=== PATIENT | female | born 1975 | race Caucasian/White ===

== ENCOUNTER → 2018-12-13 | Outpatient (CLI) | payer MEDICAID, SELFPAY ==
[2018-12-13 08:53] VITALS: BP 125/78; PULSE 73; RESP 18; O2SAT 100; BMI 18.3
== END | disposition home or self-care (01) ==
LOC: RAD 08:41
PROVIDERS: Referring Provider Internal Medicine Hematology & Oncology; Visit Provider Internal Medicine Hematology & Oncology
DX: C50.919 Malignant neoplasm of unspecified site of unspecified female breast (principal)
CPT/HCPCS: 36569

== ENCOUNTER 2018-12-14 07:51 | Emergency (ER) | payer MEDICAID, SELFPAY ==
[2018-12-13 08:53] VITALS: BMI 18.3
[2018-12-14 07:52] VITALS: BP 123/73; PULSE 60; RESP 15; TEMP 36; O2SAT 98; BMI 18.6
--- NOTE | 2018-12-14 08:05 | RAD_ITS ---
STUDY: X-RAY CHEST REASON FOR EXAM: Female, 43 years old. Cough and shortness of breath TECHNIQUE: PA and lateral views of the chest. COMPARISON: None. FINDINGS: EKG leads overlie the chest. Right-sided PICC line tip in the distal SVC. The lungs are clear and expanded. There is no demonstrated pleural abnormality. Normal size heart. Normal mediastinum and miguel. Normal visualized pulmonary arteries. Normal visualized aortic arch and descending thoracic aorta. Normal visualized thoracic spine. Normal visualized ribs, clavicles, and shoulders. There is no demonstrated abnormality of the visualized soft tissue structures of the upper abdomen. RAD/Chest PA and Lateral IMPRESSION: No acute pulmonary process Electronically Signed: Dain Baker MD at 9:11 EDT , Service support ,
--- NOTE | 2018-12-14 08:06 | ED.DCSUM_ITS ---
History of Present Illness Chief Complaint: Nausea/Vomiting Detail of Chief Complaint: Onset 0300, chemo yesterday Informant: Patient, Family Onset: Today Context: Sudden Onset Timing: Continuous - Continuous nausea with initially vomiting and now dry heaves Quality: Pain Location: Upper abdomen Current Severity: Mild Maximum Severity: Moderate Worsened by: Vomiting Relieved by: Nothing Associated Symptoms: Chills, cough, shortness of breath Narrative: Patient is a 43-year-old woman who was diagnosed with stage I breast cancer October 2018 status post lumpectomy left breast. Her oncologist is Dr. Carreno. She reports allergy to first chemo treatment. She states her medications were changed. She does not recall what her medication was changed to. Received treatment yesterday. She states the nausea medicine is not helping. She states emesis initially was yellow-green in color. There was no blood or coffee grounds noted. She does report thirst, dry mouth and lightheadedness. She reports chills. She is a smoker. She was a smoker of half pack per day. She now smokes a couple cigarettes a day. She denies black or maroon stool. She denies change in color, consistency or caliber of her stool. She denies food intolerance. Prior similar symptoms: Yes Recent Illness/Hospitalization: Yes - Past Medical History (1) History of breast cancer in female Status: Acute Past Medical History - Allergies and Home Meds Allergies/Adverse Reactions: Allergies amoxicillin Allergy (Verified 12/14/18 07:51) Other Primary Care Physician: Care Physician,No Primary [Primary Care Provider] - Surgical History: - - Lumpectomy left Lives: Spouse/ Significant Other, With Family Smoking Status: Light Smoker (<10/day) Alcohol: None Drugs: None Review of Systems General: Reports: Chills. Denies: Fever, Malaise, Subjective, Sweats, Weight loss, - Eyes: Denies: Visual changes - bilaterally, Blurred Vision - bilaterally ENT: Reports: - - Dry mouth and thirst. Denies: Bilateral ear pain, Rhinorrhea, Sore throat Cardiovascular: Denies: Chest pain, Palpitations, Heart racing Respiratory: Reports: Dyspnea, Cough. Denies: Sputum, Orthopnea, Paroxysmal nocturnal dyspnea Gastrointestinal: Reports: Abdominal pain, Nausea, Vomiting. Denies: Diarrhea, Constipation, Melena, Hematochezia Genitourinary: Denies: Dysuria, Hematuria, Frequency Musculoskeletal: Denies: Myalgias, Arthralgias, Neck pain, Back pain, Extremity Pain Skin: Denies: Rash, Wounds Neurological: Reports: Weakness. Denies: Headache, Parasthesia, Numbness Hematologic: Denies: Easy bruising, Easy bleeding Allergy: Denies: Uticaria, Swelling of the mouth Physical Exam Vital Signs/Narrative: Vital Signs Temp Pulse Resp BP Pulse Ox 12/14/18 07:52 96.8 F L 60 15 123/73 H 98 Inital Vital Signs reviewed: Yes General: Well nourished, Well developed, Acute Distress Head: Normocephalic, Atraumatic Eyes: Perrl, EOMI. Negative for: Pale conjunctiva, Scleral icterus ENT: No rhinorrhea, Dry mucous membranes Neck: Supple, Nontender, No lymphadenopathy, No JVD Cardiovascular: Regular rate, Regular rhythm, No murmurs, Normal S1, Normal S2 Respiratory: No distress, CTA bilaterally, Chest nontender, Decreased Air Movement - Diminished breath sounds right side. This is significant compared to left. There is no hyperresonance on the right. Abdomen: Soft, Nontender, Nondistended, Normal bowel sounds, No masses Back: Nontender, Normal Inspection. Negative for: CVA tenderness Extremities: Nontender, No edema, Calf Tenderness Skin: Normal color, No rash, No Trauma. Negative for: Cyanosis, Diaphoresis, Jaundice Neurological: Alert, Oriented x3, Cranial nerves II-XII grossly intact, Normal Strength, Normal Sensation Psychological: Normal affect Diagnostic/Tx/Re-eval Chest X-Ray - ED: 2 View, Read by ED Physician, Normal, Heart, Mediastinum, Bony Structures, No Acute Disease, Chronic Changes, - - PICC line noted on right. Small pleural effusion noted on right with blunting of the costal phrenic angle. There is hyper aeration. Interpretation at 0850 12/14/18 08:05 Chest PA and Lateral [RAD] Stat Laboratory Results 12/14/18 12/14/18 08:22 08:22 WBC 10.6 RBC 3.88 L Hgb 11.6 L Hct 34.4 L MCV 88.7 MCH 29.9 MCHC 33.7 RDW Std Deviation 43.8 RDW Coeff of Fabienne 13.6 Plt Count 223 MPV 9.8 Immature Gran % (Auto) 0.300 Neut % (Auto) 81.0 H Lymph % (Auto) 9.7 L [place] % (Auto) 7.9 Eos % (Auto) 1.0 Baso % (Auto) 0.1 Absolute Neuts (auto) Not Reportable Absolute Nucleated RBC 0.00 Nucleated RBC % 0 Sodium 141 Potassium 3.7 Chloride 108 H Carbon Dioxide 25.0 Anion Gap 8 BUN 10 Creatinine 0.70 Estim Creat Clear Calc 94.48 Est GFR (MDRD) Af Amer 117 Est GFR (MDRD) Non-Af 97 BUN/Creatinine Ratio 14.4 Glucose 89 Calcium 9.3 Patient was informed of her results. She reports she feels much better. Her nausea has resolved. The pain has improved. She looks better. P.o. challenge was ordered. - Medical Decision Making Patient presents with nausea vomiting dry heaves after chemo. Suspect because of her nausea and vomiting. Based on the amount of vomiting and poor p.o. intake will obtain basic metabolic panel to assess electrolytes, renal function and anion gap. CBC was obtained since she has history of neutropenia after chemo. Chest x-ray was obtained because of cough, shortness of breath with decreased breath sounds noted on the right. Need to evaluate for pneumonia and pneumothorax. She will receive 1 L of normal saline wide open. Patient was reassessed at 0953. She is sitting up and smiling. She passed p.o. challenge. She was asking whether the chemo is making her skin red. Dr. Moran Her oncologist was paged and informed that she was here and that she had improved with treatment. Will ask if patient's skin redness is secondary to c hemo therapy. Based on patient's chemo medication her skin redness is secondary to photosensitivity. ED Disposition - Plan for ED Patient: Disposition: Home or Assisted Living Diagnosis: Chemotherapy induced nausea and vomiting, Moderate dehydration, Drug-induced photosensitivity Instructions: VOMITING (6y-Adult) Prescriptions: Ondansetron [Zofran Odt] 8 mg PO Q8H PRN PRN #20 tab PRN Reason: Nausea Prescription Printed Referrals: Care Physician,No Primary [Primary Care Provider] - Luciana Navas MD [STAFF PHYSICIAN] - Keep Jas appointment Additional Instructions: Recommend applying 50 sunscreen if you go out in the sun at all.
[2018-12-14] MEDS: Morphine 4 MG/ML Syringe IV (08:20)
[2018-12-14] MEDS: 0.9% Normal Saline 1,000 ML 1000 ML IV (08:20)
[2018-12-14] MEDS: Ondansetron 4 MG/2 ML Vial IV (08:20)
[2018-12-14 08:29] LABS: Basophil# 0.01 X10^3/uL; Basophil% 0.1 % (0-1); Eosinophil# 0.11 X10^3/uL; Hematocrit 34.4 % (37-47); Hemoglobin 11.6 g/dL (12.0-15.0); Lymphocyte # 1.03 X10^3/ul (4.0); Lymphocyte % 9.7 % (19-41); Mean Corp Hgb Conc 33.7 g/dL (32-36); Mean Corpuscular Hgb 29.9 pg (27.0-32.0); Mean Corpuscular Volume 88.7 fL (81-99); Mean Platelet Vol. 9.8 fl (6.2-12.0); Monocyte# 0.84 X10^3/uL; Monocyte% 7.9 % (0-10); NRBC Flagged by Analyzer 0 % (0-5); POSITIVE MORPHOLOGY YES; Platelet Count 223 K/mm3 (150-450); RBC Distribution Width CV 13.6 % (11.6-14.6); RBC Distribution Width SD 43.8 fl (35.1-43.9); Red Blood Count 3.88 M/mm3 (4.2-5.4); White Blood Count 10.6 K/mm3 (4.4-11.0)
[2018-12-14 08:41] LABS: Anion Gap 8 (5-15); BUN 10 mg/dL (7-18); BUN/Creat Ratio 14.4 RATIO (10-20); Calcium,Total 9.3 mg/dL (8.5-10.1); Chloride 108 mmol/L (98-107); EST Glomerular Filtration Rate 97 mL/min (>60); Est Glom Filt Rate - Afr Amer 117 mL/min (>60); Estimated Creatinine Clearance 94.48 ml/min; Glucose 89 mg/dL (74-106); Potassium 3.7 mmol/L (3.5-5.1); Sodium Level 141 mmol/L (136-145)
[2018-12-14 08:48] LABS: Differential Indicated SCAN CRITERIA MET
[2018-12-14 10:28] VITALS: BP 104/67; PULSE 56; RESP 16; O2SAT 98
[2018-12-14 10:29] VITALS: BP 104/67; PULSE 56; RESP 16; O2SAT 98
--- NOTE | 2018-12-14 10:33 | NURSING ---
PICC flushed with 10cc ns & recapped prior to discharge.
== END 2018-12-14 10:35 | disposition home or self-care (01) ==
PROVIDERS: Emergency Provider Emergency Medicine
DX: R11.2 Nausea with vomiting, unspecified (principal); E86.0 Dehydration; L56.8 Other specified acute skin changes due to ultraviolet radiation; C50.919 Malignant neoplasm of unspecified site of unspecified female breast; J90 Pleural effusion, not elsewhere classified; R06.00 Dyspnea, unspecified; R05 Cough; R10.9 Unspecified abdominal pain; Z86.2 Personal history of diseases of the blood and blood-forming organs and certain disorders involving the immune mechanism; Z79.899 Other long term (current) drug therapy; F17.210 Nicotine dependence, cigarettes, uncomplicated
CPT/HCPCS: 36592; 71046; 80048; 85025; 96361; 96374; 96375; 99283; J7030; A4216; J2405

== ENCOUNTER → 2024-12-13 | Outpatient (CLI) | payer MEDICAID, SELFPAY ==
--- NOTE | 2024-12-13 07:14 | MRI_ITS ---
PROCEDURE: SPINE CERVICAL (ROUTINE) 12/13/2024 REASON FOR EXAM: PAIN AND MYELOPATHY TECHNIQUE: SPINE CERVICAL (ROUTINE) Multiplanar and multisequence images were obtained without IV contrast administration. COMPARISON: C-spine radiographs 11/12/2024. FINDINGS: Vertebrae: Mild edema and height loss of the inferior endplate of C6. Cervical vertebral body heights are otherwise preserved. Bone marrow signal is unremarkable. Alignment: Normal. No spondylolisthesis. Spinal Cord: Cervical spinal cord is of normal size and signal intensities. Structures at the foramen magnum are unremarkable. C2-3: Unremarkable. C3-4: Unremarkable. The intervertebral disc is unremarkable. No significant central or neural foraminal stenosis. C4-5: Unremarkable. The intervertebral disc is unremarkable. No significant central or neural foraminal stenosis. C5-6: Posterior disc bulging, asymmetric to the right resulting in mild central canal narrowing, and mild left and severe right neural foraminal stenosis. C6-7: Unremarkable. C7-T1: Unremarkable MRI/Spine Cervical (Routine) IMPRESSION: Severe right and mild left neural foraminal stenosis at C5-6. Additional mild central canal stenosis at C5-6. Reading Location: [id number]
--- OUTSIDE RECORDS SUMMARY | 2024-12-13 07:17 | XMS RPT_ITS | CCD ---
Author Organization [facility] Care Team Providers Care 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 Operator Name Role Phone LIO FLORES, SIXTO Primary Care Physician EDIL NICK DO Primary Care Physician MAST MEDICAL TECHNOLOGIST MICROBIOLOGY-SLITTER AND REWINDER MACHINE OPERATOR, RENETTA Primary Care Physician [phone] MAST, RENETTA Primary Care Unavailable MAST, RENETTA Attending Unavailable EDIL NICK DO Primary Care Unavailable YAAKOV BAY Attending Unavailable EDIL NICK DO Primary Care Unavailable YAAKOV BAY Attending Unavailable DR NICOLE ALBERTO DO Attending Unavailable SANDOVAL STEWART, EDIL Mcdermott Primary Care Unavailable MAST, RENETTA Attending Unavailable MAST, RENETTA Primary Care Unavailable MAST, RENETTA Attending Unavailable MAST, REENTTA Primary Care Unavailable Chuck ANDERSON, Irene Unavailable Brisa RN, Joann Unavailable Unavailable Mast SLITTER AND REWINDER MACHINE OPERATOR, Renetta Primary Care Provider [phone] MAST, RENETTA Primary Care Unavailable MASCCelso, GEOVANNI A Referring Unavailable MAST, RENETTA Primary Care Unavailable MASCCelso, GEOVANNI A Referring Unavailable MAST, RENETTA Primary Care Unavailable MASCI, GEOVANNI A Referring Unavailable JONNATHAN SANTIZO Primary Care Unavailable MASCI, GEOVANNI A Attending Unavailable Lashae ANDERSON, [facility] Primary Care Provider [phone] MAST MEDICAL TECHNOLOGIST MICROBIOLOGY-SLITTER AND REWINDER MACHINE OPERATOR, RENETTA Primary Care Unavailabl e MAST MEDICAL TECHNOLOGIST MICROBIOLOGY-SLITTER AND REWINDER MACHINE OPERATOR, RENETTA Attending Unavailabl e SHI MEDICAL TECHNOLOGIST MICROBIOLOGY-SLITTER AND REWINDER MACHINE OPERATOR, JUAN C Attending Unavailab le MAST MEDICAL TECHNOLOGIST MICROBIOLOGY-SLITTER AND REWINDER MACHINE OPERATOR, RENETTA Primary Care Unavailabl e LEONARDO ANDERSON, DR DILLARD Attending Unavailab le MAST MEDICAL TECHNOLOGIST MICROBIOLOGY-SLITTER AND REWINDER MACHINE OPERATOR, RENETTA Primary Care Unavailabl e MAST MEDICAL TECHNOLOGIST MICROBIOLOGY-SLITTER AND REWINDER MACHINE OPERATOR, RENETTA Primary Care Unavailabl e MAST MEDICAL TECHNOLOGIST MICROBIOLOGY-SLITTER AND REWINDER MACHINE OPERATOR, RENETTA Attending Unavailabl e Care Physician, No Primary Primary Care Provider Unavailable Care Physician, No Primary Referring Provider Un available Chantell Dial Attending Provider Dr. Shon Mason MD Attending Provider Care Physician, No Primary Referring Unava ilable Care Physician, No Primary Primary Care Unava ilable Chantell Caba Attending Unavailable Care Physician, No Primary Primary Care Unava ilable Shon Mason Attending Unavailable MAST, RENETTA Primary Care Unavailable Chantell Caba Referring Unavailable Chantell Caba Attending Unavailable Allergies Allergy Classification Reported Allergen(s) Allergy Type Date of Onset Reaction(s) Facility Penicillins (antibiotic) (1 source) Amoxicillin; Translations: [amoxicillin] Drug Allergy hives, itching, sores on tongue [facility] [place] (1 source) Pilocarpine; Translations: [pilocarpine containing compounds] Drug Allergy Cold and clammy skin [facility] (17 sources) Amoxicillin; Translations: [amoxicillin] Drug Allergy 9 Itching [facility] (9 sources) [place]; Translations: [pilocarpine containing compounds] Drug Allergy Cold and clammy skin [facility] (6 sources) DOCEtaxel; Translations: [DOCETAXEL] Drug Allergy 9 Hives [facility] Work Phone: (1 source) Amoxicillin Drug Allergy [address] [facility] Repository Medications Current Medications Medication Drug Class(es) Dates Sig (Normalized) Sig (Original) Tylenol (20 sources) Start: 02-15-2020 Tylenol Oral, 0 Refill(s) Start Date: 02/15/20 Status: Ordered Repeat number: 1 Start: 02-15-2020 Tylenol Oral, 0 Refill(s) Start Date: 02/15/20 Status: Ordered take 2 tablets by mo uth every eight hours as needed acetaminophen (TYLENOL EXTRA STRENGTH) 500 mg tablet Take 1,000 mg by mouth every 8 hours as needed. Active take 1 tablet by marsha every eight hours as needed acetaminophen (TYLENOL ARTHRITIS PAIN) 650 mg CR tablet Take 650 mg by mouth every 8 hours as needed. Active bio freeze (5 sources) Start: 08-12-2023 bio freeze bio freeze, 0 Refill(s), 65.9 Start Date: 08/12/23 Status: Ordered Repeat number: 1 Start: 08-12-2023 bio freeze bio freeze, 0 Refill(s), 65.9 Start Date: 08/12/23 Status: Ordered Biotene Oral Balance oral ge l (2 sources) Start: 02-09-2021 End: 02-04-2022 Biotene Oral Balance oral ge l Dose = 1 mani, Oral, AsDirected, PRN for dry mouth, Apply on tongue and spread evenly., # 45 gram(s), 11 Refill(s), Pharmacy: [facility] [address], cm, 02/09/21 9:26:00 EDT, Height, kg, 02/09/21 9:26:00 EDT, Dosing Weight Start Date: 02/09/21 Stop Date: 02/04/22 Status: Ordered busPIRone hydrochloride 10 m g oral tablet (5 sources) Start: 10-31-2024 busPIRone 10 m g oral tablet Dose : 10 mg = 1 tab(s), Oral, TID, # 90 tab(s), 3 Refill(s), Pharmacy: [facility]/pharmacy #[id number], 177.3, cm, 10/31/24 11:21:00 EDT, Height, kg, 10/31/24 11:21:00 EDT, Dosing Weight Start Date: 10/31/24 Status: Ordered Quantity: 90.0 Unit: tab(s) Repeat number: 4 Start: 08-26-2021 End: 02-22-2022 busPIRone 15 mg oral tablet Dose : 15 mg = 1 tab(s), Oral, TID, # 90 tab(s), 5 Refill(s), Pharmacy: [facility] [address] 178.2, cm, 08/26/21 8:31:00 EDT, Height, kg, 08/26/21 8:31:00 EDT, Dosing Weight Start Date: 08/26/21 Stop Date: 02/22/22 Status: Ordered Start: 02-09-2021 End: 08-08-2021 busPIRone 15 mg oral tablet Dose : 15 mg = 1 tab(s), Oral, TID, # 90 tab(s), 5 Refill(s), Pharmacy: [facility] 178, cm, 02/09/21 9:26:00 EDT, Height, kg, 02/09/21 9:26:00 EDT, Dosing Weight Start Date: 02/09/21 Stop Date: 08/08/21 Status: Ordered Start: 02-09-2021 End: 08-08-2021 busPIRone 10 mg oral tablet Dose : 10 mg = 1 tab(s), Oral, TID, # 90 tab(s), 5 Refill(s), Pharmacy: [id number] 178, cm, 02/09/21 9:26:00 EDT, Height, kg, 02/09/21 9:26:00 EDT, Dosing Weight Start Date: 02/09/21 Stop Date: 08/08/21 Status: Ordered cholecalciferol 0.05 mg oral capsule (2 sources) Vitamin D Start: 11-12-2024 take 1 capsule by mouth once daily Cholecalciferol (Vitamin D3) 50 mcg (2,000 unit) capsule Active 50 ug PO daily November 12, 2024 12:00am diphenhydrAMINE (2 sources) Histamine-1 Receptor Antagonist Start: 02-22-2023 take 2 doses by mouth four times daily as needed Magic mouthwash (Bnzqvymh-Yfqlms-Xy locaine-Mycostatin) Dose = 2 teaspoonful(s), Oral, QID, PRN swish and swallow for mouth sores, # 240 mL, 0 Refill(s), Pharmacy: [facility] #[id number], Compound, 176, cm, 02/22/23 16:13:00 EDT, Height, kg, 02/22/23 16:13:00 EDT, Dosing Weight Start Date: 02/22/23 Status: Ordered DULoxetine 60 mg delayed release oral capsule (2 sources) Serotonin and Norepinephrine Reuptake Inhibitor Start: 2021 Cymbalta 60 mg oral delayed release capsule Dose : 120 mg = 2 cap(s), Oral, qDay, # 60 cap(s), 0 Refill(s), Pharmacy: [id number] 178.2, cm, 04/06/22 8:31:00 EDT, Height, kg, 08/26/21 8:31:00 EDT, Dosing Weight Start Date: 11/05/21 Status: Ordered Start: 09-29-2020 End: 03-28-2021 Cymbalta 60 mg oral delayed release capsule Dose : 120 mg = 2 cap(s), Oral, qDay, # 60 cap(s), 5 Refill(s), [facility] [address] [facility], cm, 09/29/20 9:21:00 EDT, Height, kg, 09/29/20 9:21:00 EDT, Dosing Weight Start Date: 09/29/20 Stop Date: 03/28/21 Status: Ordered FLUoxetine 20 mg oral capsule (1 source) Serotonin Reuptake Inhibitor Start: 10-31-2024 PROzac 20 mg oral capsule Dose : 20 mg = 1 cap(s), Oral, qDay, # 30 cap(s), 2 Refill(s), Pharmacy: [facility]/pharmacy #[id number], 177.3, cm, 10/31/24 11:21:00 EDT, Height, kg, 10/31/24 11:21:00 EDT, Dosing Weight Start Date: 10/31/24 Status: Ordered Quantity: 30.0 Unit: cap(s) Repeat number: 3 ibuprofen 200 mg oral tablet (5 sources) Nonsteroidal Anti-inflammatory Drug take 2 tablets by mouth every eight hours as needed ibuprofen (MOTRIN) 200 mg tablet Take 400 mg by mouth every 8 hours as needed. Active lidocaine 0.05 mg/mg medicated patch (1 source) Antiarrhythmic, Amide Local Anesthetic Start: 08-09-2023 End: 08-16-2023 Lidoderm 5% topical patch Apply 1 patch(es), Topical, Daily, X 7 day(s), # 7 patch(es), 0 Refill(s), 65.9 Start Date: 08/09/23 Stop Date: 08/16/23 Status: Ordered loratadine 10 mg oral tablet (2 sources) Start: 08-26-2021 End: 02-22-2022 loratadine 10 mg oral tablet Dose : 10 mg = 1 tab(s), Oral, qDay, # 30 tab(s), 5 Refill(s), [facility] [address] 178.2, cm, 08/26/21 8:31:00 EDT, Height, kg, 08/26/21 8:31:00 EDT, Dosing Weight Start Date: 08/26/21 Stop Date: 02/22/22 Status: Ordered Start: 09-29-2020 End: 03-28-2021 loratadine 10 mg oral tablet Dose : 10 mg = 1 tab(s), Oral, qDay, # 30 tab(s), 5 Refill(s), [facility] [address], cm, 09/29/20 9:21:00 EDT, Height, kg, 09/29/20 9:21:00 EDT, Dosing Weight Start Date: 09/29/20 Stop Date: 03/28/21 Status: Ordered mecobalamin 1 mg chewable tablet (2 sources) Start: 11-12-2024 take 1 tablet by mouth once daily Mecobalamin (Vitamin B12) 1,000 mcg tablet,chewable Active 1000 ug PO daily November 12, 2024 12:00am omeprazole 20 mg delayed release oral capsule (1 source) Proton Pump Inhibitor Start: 10-05-2022 omeprazole 20 mg ora l delayed release capsule Dose : 20 mg = 1 cap(s), Oral, qDay, # 90 cap(s), 0 Refill(s), Pharmacy: [facility] #[id number], NSAID long-term use, 176, cm, 10/05/22 15:08:00 EDT, Height Start Date: 10/05/22 Status: Ordered ondansetron 4 mg oral film (4 sources) Serotonin-3 Receptor Antagonist Start: 09-06-2024 take 1 dose by mouth three times daily ondansetron 4 mg oral disintegrating strip Dose : 4 mg = 1 EA, Oral, TID, # 15 film, 0 Refill(s) Start Date: 09/06/24 Status: Ordered Quantity: 15.0 Unit: film Repeat number: 1 Start: 08-18-2022 End: 08-20-2023 Zofran 4 mg oral tablet Dose : 4 mg = 1 tab(s), Oral, q6h, PRN Nausea/Vomiting, # 20 tab(s), 0 Refill(s), 08/20/23 8:01:00 EDT, Pharmacy: [facility][id number], 176, , 08/18/22 7:19:00 EDT, Height Start Date: 08/18/22 Stop Date: 08/20/23 Status: Ordered Start: 12-14-2018 End: 11-12-2024 take 2 tablets by mouth every eight hours as needed for nausea Ondansetron 4 MG tablet Discontinued 8 mg PO EVERY 8 HOURS NEEDED as needed for Nausea December 14, 2018 12:00am November 12, 2024 1:03pm polyethylene glycol 3350 82516 mg powder for oral solution (2 sources) Osmotic Laxative Start: 02-17-2022 End: 02-12-2023 take 17 doses by mouth once daily MiraLax oral powder for reconstitution Dose : 17 gram(s) =, Oral, qDay, dissolve in water before taking, X 30 day(s), # 510 gram(s), 11 Refill(s), 02/12/23 9:42:00 EDT, [facility]: [facility] #[id number], 177, , 02/17/22 9:12:00 EDT, Height Start Date: 02/17/22 Stop Date: 02/12/23 Status: Ordered sulfamethoxazole 800 mg / trimethoprim 160 mg oral tablet (2 sources) Dihydrofolate Reductase Inhibitor Antibacterial, Sulfonamide Antimicrobial Start: 10-05-2022 End: 10-15-2022 take 1 tablet by mouth twice daily Bactrim DS 800 mg-160 mg oral tablet Dose = 1 tab(s), Oral, BID, X 10 day(s), # 20 tab(s), 0 Refill(s), Pharmacy: [facility] #[id number], 176, , 10/05/22 15:08:00 EDT, Height, 65.6 Start Date: 10/05/22 Stop Date: 10/15/22 Status: Ordered Start: 11-10-2021 End: 11-17-2021 take 1 tablet by mouth twice daily Bactrim DS 800 mg-160 mg oral tablet Dose = 1 tab(s), Oral, BID, X 7 day(s), # 14 tab(s), 0 Refill(s), Pharmacy: [facility] 178.2, cm, 11/10/21 15:52:00 EDT, Height, 64 Start Date: 11/10/21 Stop Date: 11/17/21 Status: Ordered traZODone hydrochloride 100 mg oral tablet (15 sources) Serotonin Reuptake Inhibitor Start: 10-22-2024 End: 11-21-2024 traZODone 100 mg oral tablet Dose : 150 mg = 1.5 tab(s), Oral, qHS, # 45 tab(s), 0 Refill(s), Pharmacy: [facility]/pharmacy #[id number], 173, cm, 10/03/24 11:26:00 EDT, Height, kg, 10/03/24 11:26:00 EDT, Dosing Weight Start Date: 10/22/24 Stop Date: 11/21/24 Status: Ordered Quantity: 45.0 Unit: tab(s) Repeat number: 1 Start: 04-23-2024 traZODone 100 mg oral tablet Dose : 150 mg = 1.5 tab(s), Oral, qHS, # 135 tab(s), 0 Refill(s), Pharmacy: [facility]/pharmacy #[id number], 178, cm, 10/21/23 9:57:00 EDT, Height, kg, 10/21/23 9:57:00 EDT, Dosing Weight Start Date: 04/23/24 Status: Ordered Quantity: 135.0 Unit: tab(s) Repeat number: 1 Start: 10-24-2023 traZODone (JANETTE YREL) 100 mg tablet Take 150 mg by mouth daily at bedtime. 10/24/2023 Active Start: 10-24-2023 traZODone 100 mg oral tablet Dose : 150 mg = 1.5 tab(s), Oral, qHS, filling in lieu of pcp, # 135 tab(s), 0 Refill(s), [facility]acy: [facility] #[id number], 178, cm, 10/21/23 9:57:00 EDT, Height, kg, 10/21/23 9:57:00 EDT, Dosing Weight Start Date: 10/24/23 Status: Ordered Start: 07-21-2023 traZODone 100 mg oral tablet Dose : 150 mg = 1.5 tab(s), Oral, qHS, # 135 tab(s), 0 Refill(s), Pharmacy: [facility] #[id number], 176, cm, 02/22/23 16:13:00 EDT, Height, kg, 02/22/23 16:13:00 EDT, Dosing Weight Start Date: 07/21/23 Status: Ordered Start: 11-10-2020 End: 02-12-2023 traZODone 100 mg oral tablet Dose : 150 mg = 1.5 tab(s), Oral, qHS, # 45 tab(s), 11 Refill(s), [facility]acy: [facility] #[id number], 177, cm, 02/17/22 9:12:00 EDT, Height, kg, 02/17/22 9:12:00 EDT, Dosing Weight Start Date: 02/17/22 Stop Date: 02/12/23 Status: Ordered vitamin b12 0.5 mg oral tablet (6 sources) Vitamin B12 Start: 11-13-2020 Vitamin B12 50 0 mcg oral tablet Dose : 500 mcg = 1 tab(s), Oral, Daily, # 30 tab(s), 11 Refill(s), Pharmacy: [facility] [facility], 176.4, cm, 11/10/20 8:54:00 EDT, Height, kg, 11/10/20 8:54:00 EDT, Dosing Weight Start Date: 11/13/20 Status: Ordered Vitamin B12 500 mcg oral tablet (9 sources) Start: 10-03-2024 Vitamin B12 50 0 mcg oral tablet Dose : 500 mcg = 1 tab(s), Oral, Daily, # 30 tab(s), 11 Refill(s), Pharmacy: [facility]/pharmacy #[id number], 173, cm, 10/03/24 11:26:00 EDT, Height, kg, 10/03/24 11:26:00 EDT, Dosing Weight Start Date: 10/03/24 Status: Ordered Quantity: 30.0 Unit: tab(s) Repeat number: 12 Start: 10-21-2023 Vitamin B12 50 0 mcg oral tablet Dose : 500 mcg = 1 tab(s), Oral, Daily, # 30 tab(s), 11 Refill(s), [facility]acy: [facility] #[id number], 178, cm, 10/21/23 9:57:00 EDT, Height, kg, 10/21/23 9:57:00 EDT, Dosing Weight Start Date: 10/21/23 Status: Ordered Quantity: 30.0 Unit: tab(s) Repeat number: 12 Start: 10-21-2023 Vitamin B12 50 0 mcg oral tablet Dose : 500 mcg = 1 tab(s), Oral, Daily, # 30 tab(s), 11 Refill(s), Pharmacy: [facility] #[id number], 178, cm, 10/21/23 9:57:00 EDT, Height, kg, 10/21/23 9:57:00 EDT, Dosing Weight Start Date: 10/21/23 Status: Ordered Start: 08-26-2021 Vitamin B12 50 0 mcg oral tablet Dose : 500 mcg = 1 tab(s), Oral, Daily, # 30 tab(s), 11 Refill(s), Pharmacy: [facility] 178.2, cm, 08/26/21 8:31:00 EDT, Height, kg, 08/26/21 8:31:00 EDT, Dosing Weight Start Date: 08/26/21 Status: Ordered Completed/Discontinued Medications Medication Drug Class(es) Dates Sig (Normalized) Sig (Original) baclofen 20 mg oral tablet (2 sources) gamma-Aminobutyric Acid-ergic Agonist Start: 08-09-2023 End: 08-14-2023 baclofen 20 mg oral tablet Dose : 20 mg = 1 tab(s), Oral, TID, # 15 tab(s), 0 Refill(s) Start Date: 08/09/23 Stop Date: 08/14/23 Status: Ordered diclofenac sodium 75 mg delayed release oral tablet (4 sources) Nonsteroidal Anti-inflammatory Drug Start: 08-31-2024 End: 09-30-2024 diclofenac sodium 75 mg oral delayed release tablet Dose : 75 mg = 1 tab(s), Oral, BID, # 60 tab(s), 0 Refill(s), Pharmacy: [facility]/pharmacy #[id number], 178, cm, 08/31/24 11:42:00 EDT, Height, kg, 08/31/24 11:34:00 EDT, Dosing Weight Start Date: 08/31/24 Stop Date: 09/30/24 Status: Ordered Quantity: 60.0 Unit: tab(s) Repeat number: 1 Start: 08-12-2023 End: 09-11-2023 diclofenac sodium 75 mg oral delayed release tablet Dose : 75 mg = 1 tab(s), Oral, BID, -no other NSAIDS - take with food, # 60 tab(s), 0 Refill(s), [facility]acy: [facility] #[id number], Back pain, 175, cm, 08/12/23 12:57:00 EDT, Height, kg, 08/12/23 12:57:00 EDT, Dosing Weight Start Date: 08/12/23 Stop Date: 09/11/23 Status: Ordered fluconazole 150 mg oral tablet (1 source) Azole Antifungal Start: 08-26-2021 End: 09-19-2021 Diflucan 150 mg oral tablet Dose : 150 mg = 1 tab(s), Oral, q72h, # 2 tab(s), 1 Refill(s), Pharmacy: [facility] 178.2, cm, 08/26/21 8:31:00 EDT, Height, 62.3 Start Date: 08/26/21 Stop Date: 09/19/21 Status: Ordered iv contrast (will be provided with radiology test) (1 source) Start: 01-26-2024 End: 01-27-2024 inject 1 dose intravenously once iv contrast (will be provided with radiology test) Indications: Chronic bilateral thoracic back pain , Malignant neoplasm of upper-outer quadrant of left breast in female, estrogen receptor positive (HCC) MRI TSP Inject, intravenously, once for 1 dose. No IV access, insert saline lock prior to the beginning of sedation, infusion, injection of imaging exam. Discontinue saline lock post exam. If Pt. has a central line or IVAD, may access for administration according to line specific nursing protocol. Once exam is complete flush line and de-access according to line specific nursing protocol in the MR contrast administration guidelines link. 1 Each 01/26/2024 01/27/2024 tiZANidine 4 mg oral tablet (2 sources) Central alpha-2 Adrenergic Agonist Start: 02-09-2021 End: 04-10-2021 tiZANidine 4 mg oral tablet Dose : 4 mg = 1 tab(s), Oral, q8h, PRN Muscle spasm, # 60 tab(s), 1 Refill(s), Pharmacy: [facility] 178, cm, 02/09/21 9:26:00 EDT, Height, kg, 02/09/21 9:26:00 EDT, Dosing Weight Start Date: 02/09/21 Stop Date: 04/10/21 Status: Ordered Problems Active Problems Problem Classification Problem Date Documented Date Episodic/Chronic Abdominal pain (1 source) Right lower quadrant pain 08-18-2022 Episod ic Allergic reactions (2 sources) Drug-induced photosensitivity; Translations: [Other specified acute skin changes due to ultraviolet radiation] 12-15-2018 Episodic Anxiety disorders (9 sources) Mixed anxiety and depressive disorder; Translations: [Anxiety] 09-28-2020 Chronic Cancer of breast (10 sources) Malignant neoplasm of upper-outer quadrant of female breast; Translations: [Malignant neoplasm of upper-outer quadrant of left female breast] Onset: 11-10-19 19 01-18-2024 Chronic Cancer of breast (9 sources) History of malignant neoplasm of breast; Translations: [Personal history of malignant neoplasm of breast] 10-05-2022 Episodic Chronic obstructive pulmonary disease and bronchiectasis (1 source) Bronchitis, not specified as acute or chronic; Translations: [Bronchitis, not specified as acute or chronic] Onset: 09-07-19 Episodic Deficiency and other anemia (3 sources) Nutritional anemia 02-08-2021 Episodic Diseases of white blood cells (17 sources) Neutropenia; Translations: [Neutropenic disorder] Onset: 06-15-19 18 01-24-2018 Chronic Fluid and electrolyte disorders (7 sources) Dehydration; Translations: [Dehydration] Onset: 12-20-19 19 12-19-2018 Episodic Malaise and fatigue (4 sources) Fatigue 10-21-2023 Episodic Menstrual disorders (3 sources) Menometrorrhagia 01-24-2018 Chronic Mood disorders (7 sources) Major depression in remission 10-05-2022 Chronic Mycoses (4 sources) Mycosis 10-21-2023 Episodic Nausea and vomiting (10 sources) Nausea; Translations: [Chemotherapy-induced nausea and vomiting] 08-18-2022 Episodic Other connective tissue disease (1 source) Musculoskeletal test abnormal; Translations: [Other symptoms and signs involving the musculoskeletal system] Episodic Other female genital disorders (8 sources) Pain in female genitalia on intercourse 08-18-2022 Chronic Other gastrointestinal disorders (1 source) Irritable bowel syndrome characterized by constipation; Translations: [Irritable bowel syndrome with constipation] Onset: 10-08-1903-08-2022 Chronic Other gastrointestinal disorders (1 source) Abdominal bloating 08-18-2022 Episodic Other gastrointestinal disorders (8 sources) Chronic constipation 08-18-2022 Episodic Other hereditary and degenerative nervous system conditions (1 source) Restless legs; Translations: [Restless legs syndrome] Onset: 10-08-1903-08-2022 Chronic Other nervous system disorders (1 source) Other chronic pain; Translations: [Chronic bilateral thoracic back pain] Onset: 02-29-20 Chronic Other nervous system disorders (1 source) Nerve root disorder 10-03-2024 Chronic Other nervous system disorders (2 sources) Disease of spinal cord, unspecified; Translations: [Disease of spinal cord, unspecified] Onset: 11-15-19 Chronic Other nervous system disorders (1 source) Anesthesia of skin; Translations: [Anesthesia of skin] Episodic Other nervous system disorders (1 source) Paresthesia; Translations: [Paresthesia of skin] Episodic Other nervous system disorders (1 source) Numbness of upper limb 08-31-2024 Episodic Other nutritional; endocrine; and metabolic disorders (10 sources) Loss of appetite 07-08-2020 Episodic Other screening for suspected conditions (not mental disorders or infectious disease) (7 sources) Decreased vitamin B12 level 10-05-2022 Episodic Residual codes; unclassified (10 sources) Insomnia 03-05-2020 Episodic Residual codes; unclassified (7 sources) History of left mastectomy 10-05-2022 Episodic Residual codes; unclassified (1 source) Tobacco use; Translations: [Tobacco use] Onset: 09-07-19 Episodic Rheumatoid arthritis and related disease (11 sources) Rheumatoid arthritis; Translations: [Rheumatoid arthritis of multiple joints] Onset: 10-08-1901-24-2018 Chronic Spondylosis; intervertebral disc disorders; other back problems (17 sources) Pain in thoracic spine; Translations: [Pain in thoracic spine] Onset: 02-29-20 Episodic Substance-related disorders (4 sources) Nicotine dependence 10-21-2023 Chronic Substance-related disorders (4 sources) Marijuana user 10-21-2023 Episodic Systemic lupus erythematosus and connective tissue disorders (1 source) Keratoconjunctivitis sicca, in Sjogren's syndrome; Translations: [Sicca syndrome with keratoconjunctivitis] Onset: 10-08-1903-08-2022 Chronic Unclassified (20 sources) Patient encounter status 08-18-2022 Urinary tract infections (3 sources) Urinary tract infectious disease 01-24-2018 Episodic Past or Other Problems Problem Classification Problem Date Documented Da te Episodic/Chronic Acquired foot deformities (5 sources) Acquired bilateral pes planus; Translations: [Flat foot [pes planus] (acquired), right foot] Onset: 02-05-2019 02-05-2019 Episodic Other connective tissue disease (5 sources) Bilateral dysfunction of posterior tibial tendon of feet; Translations: [Posterior tibial tendinitis, right leg] Onset: 02-05-2019 02-05-2019 Episodic Other connective tissue disease (1 source) Fibromyalgia; Translations: [Fibromyalgia] Onset: 10-07-2020 03-08-2022 Episodic Other upper respiratory infections (2 sources) Acute pharyngitis, unspecified; Translations: [Acute pharyngitis, unspecified] Onset: 02-22-2023 Episodic Residual codes; unclassified (1 source) Estrogen receptor positive status [ER+]; Translations: [Malignant neoplasm of upper-outer quadrant of left breast in female, estrogen receptor positive (HCC)] Onset: 11-09-2018 Episodic Results Test Name Value Interpretation Reference Range Facility Cerv Spine 4 or 5 Viewson Cerv Spine 4 or 5 Views [facility] Imaging Services [address] [place] [address] [id number] Cerv Spine 4 or 5 Views MR#: [id number] Acct: [id number] Name: LISBETH KEE Rep #: [id number] : 1975 F 49 From: Markell Hancock MD PCP: Care Physician,No Primary Status: DEP AMB Study: Cerv Spine 4 or 5 Views Date of Exam: 11/12/24 Exam# [id number] Ordering Dr: Chantell Caba PROCEDURE: CERV SPINE 4 OR 5 VIEWS 11/12/2024 REASON FOR EXAM: NECK PAIN, RADIATES TO BILATERAL SHOULDERS TECHNIQUE: CERV SPINE 4 OR 5 VIEWS COMPARISON: None FINDINGS: Vertebral body heights and alignment are maintained. No significant change in alignment on flexion and extension imaging. There is disc height loss and endplate osteophyte formation at C6-7. Prevertebral soft tissues are unremarkable. RAD/Cerv Spine 4 or 5 Views IMPRESSION: Mild degenerative changes at C6-7. Reading Location: [id number] CC: STEPH Kent; No Primary Care Physician Puff Iron Operator: Signed Normal [facility] Orthopedic Visit Reporton Orthopedic Visit Report [facility] [address] [place] [address] [address] [place] [address] OFFICE VISIT Date of Service: 11/12/24 MR#: [id number] Acct: [id number] Name: LISBETH KEE Rep #: [id number] : 1975 Provider: STEPH Kent Age/Sex: 49/F Location: [facility].ELIJAH Status: Signed Intake Vital Signs 12/14/18 07:52 11/12/24 13:02 Height 5 ft 10 in 5 ft 9 in Weight: 137 lb BMI 20.2 Intake Visit Reasons: CERVCIAL SPINE Chief Complaint: Cervical spine pain Is patient in pain?: Yes (cervical spine) Pain scale (1-10): 8 Allergies amoxicillin Allergy (Verified 11/12/24 13:02) Other PENDING SALE TO [facility] Medical History Rheumatoid arthritis Breast cancer Surgical History H/O breast surgery H/O: hysterectomy Social History Smoking Status: Current every day smoker HPI CERVCIAL SPINE Details: This documentation accurately reflects the service provided and the decisions made by , STEPH Kent 11/12/24 4161. Part of today???s visit was documented by Lisbeth Roy RN, acting as scribe. LISBETH KEE is a 49 year old F here today for cervical spine pain. She complains of cervical pain that starts at the base of her skull and extends down into her traps bilaterally, worse on the right. Pain worsening since July. She also experiences pain down into her right arm along with tinging. She reports swelling in her right hand. She does experience headaches frequently. She also reports weakness in her right hand, she does drop items frequently. Dropping things out of her hand such as a spoon and cups. This has also been worsening since July. 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 Says that she is not able to complete her work well due to the right sided pain and weakness. The patient is right-hand dominant. She states bending sends sharp shooting pains down into her right arm. Sitting increases her pain. She denies previous injury or surgery to her neck. She did complete PT last fall but she reports that was not helpful. She has been completing the home exercise program as directed from therapy on a daily basis. The home exercises have been worsening her pain. She has not seen pain management. She does have a history of breast cancer which was treated with surgery to remove the mass followed by chemo and radiation, she has been cancer free for the last five years. No significant balance changes. No heart or lung issues, no blood thinners, no diabetes. She takes ibuprofen and Tylenol over the counter without much benefit. Ortho Exam General General: Yes no acute distress Neurologic: Yes alert and Yes oriented x3 Spine SPINE TESTING CERVICAL THORACIC LUMBAR Musculoskeletal Strength 0=absent - 5=normal Details: Neurological exam of the upper extremities shows 4+ power biceps, triceps, shoulder abduction, all other muscle groups show 5 power. Normal sensation across all dermatomes. No hyperreflexia. There is midline and right paraspinal tenderness. Juan José's negative. Coding Level of Care Code Off vis,new,level 3 Diagnoses Cervical myelopathy with cervical radiculopathy G95.9; M54.12 Assessment and Plan Assessment and Plan (1) Cervical myelopathy with cervical radiculopathy: Status: Acute Orders: Orders Cerv Spine 4 or 5 Views Today M54.2 - Cervicalgia Spine Cervical (Routine) Today G95.9 - Disease of spinal cord, unspecified, M54.12 - Radiculopathy, cervical region Medications: Discontinued ondansetron Discontinued Reason: Pt no longer taking 8 mg (2 x 4 mg) PO Q8H PRN PRN 20 tabs Nausea Plan Obtained reviewed cervical x-rays today in the clinic. Independent rotation of the x-rays was performed. X-rays show straightening of the normal cervical lordosis, very mild degenerative changes, no instability, no cervical MRI. Reviewed thoracic MRI from February 2024 which showed in the internal medicine physician view potentially some mild compression in the cervical region, no dedicated cervical imaging with this MRI. Explained imaging findings in detail. At this time due to the patient's worsening dexterity issues and weakness demonstrated on physical exam in the right biceps and triceps and shoulder abduction recommend an MRI at this time to assess for cervical myelopathy. Explained the progressive nature of cervical myelopathy. Unfortunately the patient did have an MRI of the thoracic spine done in February 2024 but these images do not clearly show the cervical spine. The patient's dexterity has been worsening over the last several months. Because of this the MRI will be ordered with some urgency. She will follow-up after the MRI to review the results. Patient is in agree (more content not included)... Normal [facility] .GFRon 10-31-2024 Estimated Glomerular Filtration Rate 100 ml/min/1.73sqm Normal [facility] Comment on above: Result Comment: Stages of Chronic Kidney Disease (CKD) Stage Description eGFR(ml/min/1.73 sq.m.) CKD 1 Normal kidney function or >=90 normal kindney function with possible kidney damage (ex. Proteinuria) CKD 2 Kidney damage with mild loss 60-89 of kidney function CKD 3a Mild to moderate loss of kidney 45-59 function CKD 3b Moderate to severe loss of 30-44 of kindey function CKD 4 Severe loss of kidney function 15-29 CKD 5 Kidney failure <15 Note: (go live 2024) the eGFR calculation was updated to the 2020 CKD-EPI creatinine equation without a race factor to calculate the eGFR results. Performed By: #### V IDH, LIPID, CBC, CMP, MORPH, TSH, DIFF, FT4, GFR ####[facility] [place], [place] [address]#### B12 ####[facility] [place] [id number] .Manual Diffon 10-31-2024 Bands 1.0 % Normal 0.0-5.0 [facility] Comment on above: Performed By: #### V IDH, LIPID, CBC, CMP, MORPH, TSH, DIFF, FT4, GFR ####[place] [address]#### B12 ####[address] [address] Basophil %, Manual 0.0 % Normal 0.0-2.5 [facility] Comment on above: Performed By: #### V IDH, LIPID, CBC, CMP, MORPH, TSH, DIFF, FT4, GFR ####[place] [address]#### B12 ####[place] [address] Basophil, Abs Manual 0.0 10 3/mcL Normal 0.0-0.3 [facility] Comment on above: Performed By: #### V IDH, LIPID, CBC, CMP, MORPH, TSH, DIFF, FT4, GFR ####[place] [address]#### B12 ####[place] [address] Eosinophil %, Manual 2.0 % Normal 0.0-6.0 [facility] Comment on above: Performed By: #### V IDH, LIPID, CBC, CMP, MORPH, TSH, DIFF, FT4, GFR ####[place] [address]#### B12 ####[place] [address] Eosinophil, Abs Manual 0.1 10 3/mcL Normal 0.0-0.7 [facility] Comment on above: Performed By: #### V IDH, LIPID, CBC, CMP, MORPH, TSH, DIFF, FT4, GFR ####[place] [address]#### B12 ####[place] [address] Lymphocyte %, Manual 39.0 % Normal 20.0-40.0 [facility] Comment on above: Performed By: #### V IDH, LIPID, CBC, CMP, MORPH, TSH, DIFF, FT4, GFR ####[place] [address]#### B12 ####[address] [address] Lymphocyte, Abs Manual 0.8 10 3/mcL Low 0.9-4.3 [facility] Comment on above: Performed By: #### V IDH, LIPID, CBC, CMP, MORPH, TSH, DIFF, FT4, GFR ####[place] [address]#### B12 ####[place] [address] Monocyte %, Manual 14.0 % High 2.0-13.0 [facility] Comment on above: Performed By: #### V IDH, LIPID, CBC, CMP, MORPH, TSH, DIFF, FT4, GFR ####[place] [address]#### B12 ####[place] [address] Monocyte, Abs Manual 0.3 10 3/mcL Normal 0.1-1.4 [facility] Comment on above: Performed By: #### V IDH, LIPID, CBC, CMP, MORPH, TSH, DIFF, FT4, GFR ####[place] [address]#### B12 ####[place] [address] Neutrophil %, Manual 44.0 % Low 50.0-75.0 [facility] Comment on above: Performed By: #### V IDH, LIPID, CBC, CMP, MORPH, TSH, DIFF, FT4, GFR ####[place] [address]#### B12 ####[address] [address] Neutrophil, Abs Manual 0.9 10 3/mcL Low 2.3-8.1 [facility] Comment on above: Performed By: #### V IDH, LIPID, CBC, CMP, MORPH, TSH, DIFF, FT4, GFR ####[place] [address]#### B12 ####[place] [address] Nucleated RBC 0.0 /100 WBC Normal [facility] Comment on above: Performed By: #### V IDH, LIPID, CBC, CMP, MORPH, TSH, DIFF, FT4, GFR ####[place] [address]#### B12 ####[place] [address] .Morphon 10-31-2024 Anisocytosis Ql (Bld) 1+ Normal [facility] Comment on above: Performed By: #### V IDH, LIPID, CBC, CMP, MORPH, TSH, DIFF, FT4, GFR ####[place] [address]#### B12 ####[place] [address] Large Platelets Few Normal [facility] Comment on above: Performed By: #### V IDH, LIPID, CBC, CMP, MORPH, TSH, DIFF, FT4, GFR ####[place] [address]#### B12 ####[place] [address] Platelet Estimate Normal Normal [facility] Comment on above: Performed By: #### V IDH, LIPID, CBC, CMP, MORPH, TSH, DIFF, FT4, GFR ####[place] [address]#### B12 ####[place] [address] B12on 10-31-2024 Cobalamin (Vitamin B12) [Mass/Vol] 335 pg/mL Normal 211-911 [facility] Comment on above: Performed By: #### V IDH, LIPID, CBC, CMP, MORPH, TSH, DIFF, FT4, GFR ####[place] [address]#### B12 ####[place] [address] CBCon 10-31-2024 Erythrocyte distribution width (RBC) [Ratio] 13.9 % Normal 11.5-15.5 [facility] Comment on above: Performed By: #### V IDH, LIPID, CBC, CMP, MORPH, TSH, DIFF, FT4, GFR ####[place] [address]#### B12 ####[place] [address] Hematocrit (Bld) [Volume fraction] 39.9 % Normal 34.0-46.0 [facility] Comment on above: Performed By: #### V IDH, LIPID, CBC, CMP, MORPH, TSH, DIFF, FT4, GFR ####[place] [address]#### B12 ####[place] [address] Hgb 13.7 G/dL Normal 12.0-16.0 [facility] Comment on above: Performed By: #### V IDH, LIPID, CBC, CMP, MORPH, TSH, DIFF, FT4, GFR ####[place] [address]#### B12 ####[place] [address] MCH (RBC) [Entitic mass] 32.4 pg Normal 27.0-33.0 [facility] Comment on above: Performed By: #### V IDH, LIPID, CBC, CMP, MORPH, TSH, DIFF, FT4, GFR ####[place] [address]#### B12 ####[place] [address] MCHC 34.3 G/dL Normal 32.0-36.0 [facility] Comment on above: Performed By: #### V IDH, LIPID, CBC, CMP, MORPH, TSH, DIFF, FT4, GFR ####[place] [id number]#### B12 ####[place] [address] MCV (RBC) [Entitic vol] 94.5 fL Normal 80.0-99.0 [facility] Comment on above: Performed By: #### V IDH, LIPID, CBC, CMP, MORPH, TSH, DIFF, FT4, GFR ####[place] [address]#### B12 ####[place] [address] Platelet 175 10 3/mcL Normal 150-450 [facility] Comment on above: Performed By: #### V IDH, LIPID, CBC, CMP, MORPH, TSH, DIFF, FT4, GFR ####[place] [address]#### B12 ####[place] [address] Platelet mean volume (Bld) [Entitic vol] 7.9 fL Normal 6.6-10.5 [facility] Comment on above: Performed By: #### V IDH, LIPID, CBC, CMP, MORPH, TSH, DIFF, FT4, GFR ####[place] [address]#### B12 ####[place] [address] RBC 4.22 10 6/mcL Normal 4.10-5.30 [facility] Comment on above: Performed By: #### V IDH, LIPID, CBC, CMP, MORPH, TSH, DIFF, FT4, GFR ####[place] [address]#### B12 ####[place] [address] WBC 2.1 10 3/mcL Low 4.5-10.8 [facility] Comment on above: Performed By: #### V IDH, LIPID, CBC, CMP, MORPH, TSH, DIFF, FT4, GFR ####[place] [address]#### B12 ####[place] [address] CMPon 10-31-2024 Albumin Level 4.0 G/dL Normal 3.5-5.0 [facility] Comment on above: Performed By: #### V IDH, LIPID, CBC, CMP, MORPH, TSH, DIFF, FT4, GFR ####[place] [address]#### B12 ####[place] [address] Albumin/Globulin [Mass ratio] 1.0 {ratio} Low 1.1-2.5 [facility] Comment on above: Performed By: #### V IDH, LIPID, CBC, CMP, MORPH, TSH, DIFF, FT4, GFR ####[place] [address]#### B12 ####[place] [address] ALP [Catalytic activity/Vol] 130 U/L Normal 40-135 [facility] Comment on above: Performed By: #### V IDH, LIPID, CBC, CMP, MORPH, TSH, DIFF, FT4, GFR ####[place] [address]#### B12 ####[place] [address] ALT [Catalytic activity/Vol] 22 U/L Normal 14-59 [facility] Comment on above: Performed By: #### V IDH, LIPID, CBC, CMP, MORPH, TSH, DIFF, FT4, GFR ####[place] [address]#### B12 ####[place] [address] AST [Catalytic activity/Vol] 16 U/L Normal 10-40 [facility] Comment on above: Performed By: #### V IDH, LIPID, CBC, CMP, MORPH, TSH, DIFF, FT4, GFR ####[place] [address]#### B12 ####[place] [address] Bili Total 0.4 mg/dL Normal 0.2-1.0 [facility] Comment on above: Result Comment: Use of this assay is not recommended for patients undergoing treatment with eltrombopag due to the potential for falsely elevated results. Performed By: #### V IDH, LIPID, CBC, CMP, MORPH, TSH, DIFF, FT4, GFR ####[place] [address]#### B12 ####[place] [address] BUN/Creatinine Ratio 15 ratio Normal 7-27 [facility] Comment on above: Performed By: #### V IDH, LIPID, CBC, CMP, MORPH, TSH, DIFF, FT4, GFR ####[place] [address]#### B12 ####[place] [address] Calcium [Mass/Vol] 9.5 mg/dL Normal 8.4-10.2 [facility] Comment on above: Performed By: #### V IDH, LIPID, CBC, CMP, MORPH, TSH, DIFF, FT4, GFR ####[place] [address]#### B12 ####[place] [address] Chloride [Moles/Vol] 103 mmol/L Normal 98-107 [facility] Comment on above: Performed By: #### V IDH, LIPID, CBC, CMP, MORPH, TSH, DIFF, FT4, GFR ####[place] [address]#### B12 ####[place] [address] CO2 [Moles/Vol] 27 mmol/L Normal 22-29 [facility] Comment on above: Performed By: #### V IDH, LIPID, CBC, CMP, MORPH, TSH, DIFF, FT4, GFR ####[place] [id number]#### B12 ####[place] [address] Creatinine [Mass/Vol] 0.73 mg/dL Normal 0.51-0.95 [facility] Comment on above: Performed By: #### V IDH, LIPID, CBC, CMP, MORPH, TSH, DIFF, FT4, GFR ####[place] [address]#### B12 ####[place] [address] Electrolyte Balance 8.0 mEq/L Normal 4.0-15.0 [facility] Comment on above: Performed By: #### V IDH, LIPID, CBC, CMP, MORPH, TSH, DIFF, FT4, GFR ####[place] [address]#### B12 ####[place] [address] Globulin 4.1 G/dL Normal 2.7-4.4 [facility] Comment on above: Performed By: #### V IDH, LIPID, CBC, CMP, MORPH, TSH, DIFF, FT4, GFR ####[place] [address]#### B12 ####[place] [address] Glucose [Mass/Vol] 92 mg/dL Normal 70-105 [facility] Comment on above: Performed By: #### V IDH, LIPID, CBC, CMP, MORPH, TSH, DIFF, FT4, GFR ####[place] [address]#### B12 ####[place] [address] Potassium [Moles/Vol] 4.3 mmol/L Normal 3.5-5.1 [facility] Comment on above: Performed By: #### V IDH, LIPID, CBC, CMP, MORPH, TSH, DIFF, FT4, GFR ####[place] [address]#### B12 ####[place] [address] Sodium [Moles/Vol] 138 mmol/L Normal 136-145 [facility] Comment on above: Performed By: #### V IDH, LIPID, CBC, CMP, MORPH, TSH, DIFF, FT4, GFR ####[place] [address]#### B12 ####[place] [address] Total Protein 8.1 G/dL Normal 6.4-8.2 [facility] Comment on above: Performed By: #### V IDH, LIPID, CBC, CMP, MORPH, TSH, DIFF, FT4, GFR ####[place] [address]#### B12 ####[place] [address] Urea nitrogen [Mass/Vol] 11 mg/dL Normal 7-18 [facility] Comment on above: Performed By: #### V IDH, LIPID, CBC, CMP, MORPH, TSH, DIFF, FT4, GFR ####[place] [address]#### B12 ####[place] [address] FT4on 10-31-2024 Free T4 [Mass/Vol] 0.70 ng/dL Low 0.76-1.46 [facility] Comment on above: Performed By: #### V IDH, LIPID, CBC, CMP, MORPH, TSH, DIFF, FT4, GFR ####[place] [address]#### B12 ####[place] [address] LABORATORYOrdered By: SYSTEM SYSTEM on 10-31-2024 25-hydroxyvitamin D3 [Mass/Vol] 23.4 ng/mL Invalid Interpretation Code AO ADM SS Comment on above: Interpretive Data: I nterpretive Values Based on Total 25(OH) Vitamin D: Deficient <20 ng/mL Insufficient 20 - <30 ng/mL Sufficient 30-100 ng/mL Albumin BCP dye [Mass/Vol] 4.0 G/dL Normal 3.5 - 5.0 G/dL AO ADM SS Albumin/Globulin [Mass ratio] 1.0 {ratio} Low 1.1 - 2.5 ratio AO ADM SS ALP [Catalytic activity/Vol] 130 U/L Normal 40 - 135 U/L AO ADM SS ALT With P-5'-P [Catalytic activity/Vol] 22 U/L Normal 14 - 59 U/L AO ADM SS Anisocytosis Ql (Bld) 1+ *NA* (10/31/24 12:24 PM) Invalid Interpretation Code AO Workflow SS AST With P-5'-P [Catalytic activity/Vol] 16 U/L Normal 10 - 40 U/L AO ADM SS Band form neutrophils/100 WBC (Bld) 1.0 % Normal 0.0 - 5.0 % AO Workflow SS Basophil %, Manual 0.0 % Normal 0.0 - 2.5 % AO Wo rkflow SS Basophils (Bld) [#/Vol] 0.0 103/mcL Normal 0.0 - 0.3 10^3/mcL AO Workflow SS Bilirubin [Mass/Vol] 0.4 mg/dL Normal 0.2 - 1 .0 mg/dL AO ADM SS Comment on above: Interpretive Data: U se of this assay is not recommended for patients undergoing treatment with eltrombopag due to the potential for falsely elevated results. Calcium [Mass/Vol] 9.5 mg/dL Normal 8.4 - 10. 2 mg/dL AO ADM SS Chloride [Moles/Vol] 103 mmol/L Normal 98 - 10 7 mmol/L AO ADM SS CO2 [Moles/Vol] 27 mmol/L Normal 22 - 29 mmol/L AO ADM SS Cobalamin (Vitamin B12) [Mass/Vol] 335 pg/mL Normal 211 - 911 pg/mL AH ADM SS Creatinine [Mass/Vol] 0.73 mg/dL Normal 0.51 - 0.95 mg/dL AO ADM SS Electrolyte Balance 8.0 mEq/L Normal 4.0 - 15 .0 mEq/L AO ADM SS Eosinophil %, Manual 2.0 % Normal 0.0 - 6.0 % AO Workflow SS Eosinophils (Bld) [#/Vol] 0.1 103/mcL Normal 0.0 - 0.7 10^3/mcL AO Workflow SS Erythrocyte distribution width (RBC) [Ratio] 13.9 % Normal 11.5 - 15.5 % AO Workflow SS Estimated Glomerular Filtration Rate 100 ml/min/1.73sqm Invalid Interpretation Code AO Chemistry S Comment on above: Interpretive Data: Stages of Chronic Kidney Disease (CKD) Stage Description eGFR(ml/min/1.73 sq.m.) CKD 1 Normal kidney function or >=90 normal kindney function with possible kidney damage (ex. Proteinuria) CKD 2 Kidney damage with mild loss 60-89 of kidney function CKD 3a Mild to moderate loss of kidney 45-59 function CKD 3b Moderate to severe loss of 30-44 of kindey function CKD 4 Severe loss of kidney function 15-29 CKD 5 Kidney failure <15 Note: (go live 2024) the eGFR calculation was updated to the 2020 CKD-EPI creatinine equation without a race factor to calculate the eGFR results. Free T4 [Mass/Vol] 0.70 ng/dL Low 0.76 - 1. 46 ng/dL AO ADM SS Globulin 4.1 G/dL Normal 2.7 - 4.4 G/dL AO ADM SS Glucose [Mass/Vol] 92 mg/dL Normal 70 - 105 mg/dL AO ADM SS Hematocrit (Bld) [Volume fraction] 39.9 % Normal 34.0 - 46.0 % AO Workflow SS Hemoglobin (Bld) [Mass/Vol] 13.7 G/dL Normal 12.0 - 16.0 G/dL AO Workflow SS Large Platelets Few *NA* (10/31/24 12:24 PM) Invalid Interpretation Code AO Workflow SS Lymphocytes (Bld) [#/Vol] 0.8 103/mcL Low 0.9 - 4.3 10^3/mcL AO Workflow SS Lymphocytes/100 WBC (Bld) 39.0 % Normal 20.0 - 40.0 % AO Workflow SS MCH (RBC) [Entitic mass] 32.4 pg Normal 27.0 - 33.0 pg AO Workflow SS MCHC 34.3 G/dL Normal 32.0 - 36.0 G/dL AO Workflow SS MCV (RBC) [Entitic vol] 94.5 fL Normal 80.0 - 99.0 fL AO Workflow SS Monocytes (Bld) [#/Vol] 0.3 103/mcL Normal 0.1 - 1.4 10^3/mcL AO Workflow SS Monocytes/100 WBC (Bld) 14.0 % High 2.0 - 13.0 % AO Workflow SS Neutrophils (Bld) [#/Vol] 0.9 103/mcL Low 2.3 - 8.1 10^3/mcL AO Workflow SS Neutrophils/100 WBC (Bld) 44.0 % Low 50.0 - 75.0 % AO Workflow SS Nucleated RBC 0.0 /100 WBC Invalid Interpretation Code AO Workflow SS Platelet mean volume (Bld) [Entitic vol] 7.9 fL Normal 6.6 - 10.5 fL AO Workflow SS Platelets (Bld) [#/Vol] 175 103/mcL Normal 150 - 450 10^3/mcL AO Workflow SS Platelets LM Ql (Bld) Normal *NA* (10/31/24 12:24 PM) Invalid Interpretation Code AO Workflow SS Potassium [Moles/Vol] 4.3 mmol/L Normal 3.5 - 5.1 mmol/L AO ADM SS Protein [Mass/Vol] 8.1 G/dL Normal 6.4 - 8.2 G/dL AO ADM SS RBC (Bld) [#/Vol] 4.22 106/mcL Normal 4.10 - 5.3 0 10^6/mcL AO Workflow SS Sodium [Moles/Vol] 138 mmol/L Normal 136 - 145 mmol/L AO ADM SS TSH Qn 4.31 m[IU]/L High 0.36 - 3.74 mcIU/mL AO ADM SS Urea nitrogen [Mass/Vol] 11 mg/dL Normal 7 - 18 mg/dL AO ADM SS Urea nitrogen/Creatinine [Mass ratio] 15 ratio Normal 7 - 27 ratio AO ADM SS WBC (Bld) [#/Vol] 2.1 103/mcL Low 4.5 - 10.8 10^3/mcL AO Workflow SS LABORATORYOrdered By: Javier Ponce on 10-31-2024 Cholesterol [Mass/Vol] 169 mg/dL Normal 0 - 200 mg/dL AO ADM SS Comment on above: Interpretive Data: C holesterol Reference Interval: Less than 200 Desirable 200-239 Borderline high risk 240 and above High risk Cholesterol in HDL [Mass/Vol] 72 mg/dL High 40 - 60 mg/dL AO ADM SS Cholesterol in LDL [Mass/Vol] 88 mg/dL Normal 0 - 130 mg/dL AO ADM SS Triglyceride [Mass/Vol] 43 mg/dL Normal 0 - 150 mg/dL AO ADM SS Comment on above: Interpretive Data: T riglyceride Reference Interval: Less than 150 Normal 150-199 Borderline high risk 200-499 High risk 500 or higher Very high risk LIPIDon 10-31-2024 Cholesterol [Mass/Vol] 169 mg/dL Normal 0-200 [facility] Comment on above: Result Comment: Chol esterol Reference Interval: Less than 200 Desirable 200-239 Borderline high risk 240 and above High risk Performed By: #### V IDH, LIPID, CBC, CMP, MORPH, TSH, DIFF, FT4, GFR ####[place] [address]#### B12 ####[address] [address] Cholesterol in HDL [Mass/Vol] 72 mg/dL High 40-60 [facility] Comment on above: Performed By: #### V IDH, LIPID, CBC, CMP, MORPH, TSH, DIFF, FT4, GFR ####[place] [address]#### B12 ####[address] [address] Cholesterol in LDL [Mass/Vol] 88 mg/dL Normal 0-130 [facility] Comment on above: Performed By: #### V IDH, LIPID, CBC, CMP, MORPH, TSH, DIFF, FT4, GFR ####[place] [address]#### B12 ####[address] [address] Triglyceride [Mass/Vol] 43 mg/dL Normal 0-150 [facility] Comment on above: Result Comment: Trig lyceride Reference Interval: Less than 150 Normal 150-199 Borderline high risk 200-499 High risk 500 or higher Very high risk Performed By: #### V IDH, LIPID, CBC, CMP, MORPH, TSH, DIFF, FT4, GFR ####[place] [address]#### B12 ####[address] [address] TSHon 10-31-2024 TSH Qn 4.31 m[IU]/L High 0.36-3.74 [facility] Comment on above: Performed By: #### V IDH, LIPID, CBC, CMP, MORPH, TSH, DIFF, FT4, GFR ####[address] [address]#### B12 ####[address] [address] VIDHon 10-31-2024 Vit. D 25-Hydroxy 23.4 ng/mL Normal [facility] Comment on above: Result Comment: Inte rpretive Values Based on Total 25(OH) Vitamin D: Deficient <20 ng/mL Insufficient 20 - <30 ng/mL Sufficient 30-100 ng/mL Performed By: #### V IDH, LIPID, CBC, CMP, MORPH, TSH, DIFF, FT4, GFR ####[address] [address]#### B12 ####[place] [address] 36on 09-27-2024 36 Called patient made apt Normal [facility] .Auto Diffon 09-06-2024 Basophil, Absolute 0.1 10 3/mcL Normal 0.0-0.3 [facility] Comment on above: Performed By: #### M DW, CBC, BMP, ADIFF, GFR, ANEU #### [address] [address] Basophils/100 WBC (Bld) 0.7 % Normal 0.0-2.5 [facility] Comment on above: Performed By: #### M DW, CBC, BMP, ADIFF, GFR, ANEU #### [address] [address] Eosinophil, Absolute 0.0 10 3/mcL Normal 0.0-0.7 [facility] Comment on above: Performed By: #### M DW, CBC, BMP, ADIFF, GFR, ANEU #### [address] [address] Eosinophils/100 WBC (Bld) 0.1 % Normal 0.0-6.0 [facility] Comment on above: Performed By: #### M DW, CBC, BMP, ADIFF, GFR, ANEU #### [address] [address] Lymphocyte, Absolute 0.7 10 3/mcL Low 0.9-4.3 [facility] Comment on above: Performed By: #### M DW, CBC, BMP, ADIFF, GFR, ANEU #### [address] [address] Lymphocytes/100 WBC (Bld) 7.6 % Low 20.0-40.0 [facility] Comment on above: Performed By: #### M DW, CBC, BMP, ADIFF, GFR, ANEU #### [address] [address] Monocyte, Absolute 0.5 10 3/mcL Normal 0.1-1.4 [facility] Comment on above: Performed By: #### M DW, CBC, BMP, ADIFF, GFR, ANEU #### [address] [address] Monocytes/100 WBC (Bld) 5.2 % Normal 2.0-13.0 [facility] Comment on above: Performed By: #### M DW, CBC, BMP, ADIFF, GFR, ANEU #### [address] [address] Neutrophils/100 WBC (Bld) 86.4 % High 50.0-75.0 [facility] Comment on above: Performed By: #### M DW, CBC, BMP, ADIFF, GFR, ANEU #### [address] [address] .GFRon 09-06-2024 Estimated Glomerular Filtration Rate 80 ml/min/1.73sqm Normal [facility] Comment on above: Result Comment: Stages of Chronic Kidney Disease (CKD) Stage Description eGFR(ml/min/1.73 sq.m.) CKD 1 Normal kidney function or >=90 normal kindney function with possible kidney damage (ex. Proteinuria) CKD 2 Kidney damage with mild loss 60-89 of kidney function CKD 3a Mild to moderate loss of kidney 45-59 function CKD 3b Moderate to severe loss of 30-44 of kindey function CKD 4 Severe loss of kidney function 15-29 CKD 5 Kidney failure <15 Note: (go live 2024) the eGFR calculation was updated to the 2020 CKD-EPI creatinine equation without a race factor to calculate the eGFR results. Performed By: #### M DW, CBC, BMP, ADIFF, GFR, ANEU ####[address] [address] .MDWon 09-06-2024 Monocyte Distribution Width 23.41 High 0.00-20.00 [facility] Comment on above: Result Comment: For adults in ED, MDW>20.0 may be associated with a higher risk of sepsis during the first 12hrs of hospital admission Performed By: #### M DW, CBC, BMP, ADIFF, GFR, ANEU #### [address] [address] .NEUABSon 09-06-2024 Neutrophil, Absolute 7.6 10 3/mcL Normal 2.3-8.1 [facility] Comment on above: Performed By: #### M DW, CBC, BMP, ADIFF, GFR, ANEU #### [address] [address] BMPon 09-06-2024 BUN/Creatinine Ratio 11 ratio Normal 7-27 [facility] Comment on above: Performed By: #### M DW, CBC, BMP, ADIFF, GFR, ANEU #### [address] [address] Calcium [Mass/Vol] 8.9 mg/dL Normal 8.4-10.2 [facility] Comment on above: Performed By: #### M DW, CBC, BMP, ADIFF, GFR, ANEU #### [address]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 25.9 % Normal 10.0-50.0 [facility] ([place] Comment on above: Performed By: #### C BC, ADIFF, ANEU, VIDH, LIPID ####[address] [place], [place] [address] Monocyte, Absolute 0.6 10 3/mcL Normal 0.2-1.0 [facility] ([place] Comment on above: Performed By: #### C BC, ADIFF, ANEU, VIDH, LIPID ####[address] [place], [place] [address] Monocytes/100 WBC (Bld) 13.2 % High 1.7-13.0 [facility] ([place] Comment on above: Performed By: #### C BC, ADIFF, ANEU, VIDH, LIPID ####[address] [place], [place] [address] Neutrophils/100 WBC (Bld) 57.7 % Normal 37.0-80.0 [facility] ([place] Comment on above: Performed By: #### C BC, ADIFF, ANEU, VIDH, LIPID ####[address] [place], [place] [address] .NEUABSon 10-26-2023 Neutrophil, Absolute 2.4 10 3/mcL Low 2.9-6.2 [facility] ([place] Comment on above: Performed By: #### C BC, ADIFF, ANEU, VIDH, LIPID ####[address] [place], [place] [address] CBCon 10-26-2023 Erythrocyte distribution width (RBC) [Ratio] 13.7 % Normal 11.5-14.5 [facility] ([place] Comment on above: Performed By: #### C BC, ADIFF, ANEU, VIDH, LIPID ####[address] [place], [place] [address] Hematocrit (Bld) [Volume fraction] 40.2 % Normal 37.0-47.0 [facility] ([place] Comment on above: Performed By: #### C BC, ADIFF, ANEU, VIDH, LIPID ####[address] [place], [place] [address] Hgb 13.8 G/dL Normal 12.0-16.0 [facility] ([place] Comment on above: Performed By: #### C BC, ADIFF, ANEU, VIDH, LIPID ####[address] [place], [place] [address] MCH (RBC) [Entitic mass] 32.9 pg High 27.0-31.2 [facility] ([place] Comment on above: Performed By: #### C BC, ADIFF, ANEU, VIDH, LIPID ####[address] [place], [place] [address] MCHC 34.3 G/dL Normal 33.0-37.0 [facility] ([place] Comment on above: Performed By: #### C BC, ADIFF, ANEU, VIDH, LIPID ####[address] [place], [place] [address] MCV (RBC) [Entitic vol] 96.0 fL High 80.0-94.0 [facility] ([place] Comment on above: Performed By: #### C BC, ADIFF, ANEU, VIDH, LIPID ####[address] [place], [place] [address] Platelet 194 10 3/mcL Normal 130-400 [facility] ([place] Comment on above: Performed By: #### C BC, ADIFF, ANEU, VIDH, LIPID ####[address] [place], [place] [address] Platelet mean volume (Bld) [Entitic vol] 7.8 fL Normal 7.4-10.4 [facility] ([place] Comment on above: Performed By: #### C BC, ADIFF, ANEU, VIDH, LIPID ####[address] [place], [place] [address] RBC 4.19 10 6/mcL Low 4.20-5.40 [facility] ([place] Comment on above: Performed By: #### C BC, ADIFF, ANEU, VIDH, LIPID ####[address] [place], [place] [address] WBC 4.2 10 3/mcL Low 4.6-10.8 [facility] ([place] Comment on above: Performed By: #### C BC, ADIFF, ANEU, VIDH, LIPID ####[address] [place], [place] [address] LABORATORYOrdered By: SYSTEM SYSTEM on 10-26-2023 25-hydroxyvitamin D3 [Mass/Vol] 33.1 ng/mL Invalid Interpretation Code AO ADM SS Comment on above: Interpretive Data: I nterpretive Values Based on Total 25([place]) Vitamin D: Deficient <20 ng/mL Insufficient 20 - <30 ng/mL Sufficient 30-100 ng/mL Basophil, Absolute 0.0 103/mcL Normal 0.0 - 0.2 10^3/mcL AO Workflow SS Basophils/100 WBC (Bld) 0.7 % Normal 0.0 - 2.5 % AO Workflow SS Eosinophil, Absolute 0.1 103/mcL Normal 0.0 - 0 .4 10^3/mcL AO Workflow SS Eosinophils/100 WBC (Bld) 2.5 % Normal 0.0 - 7.0 % AO Workflow SS Erythrocyte distribution width (RBC) [Ratio] 13.7 % Normal 11.5 - 14.5 % AO Workflow SS Hematocrit (Bld) [Volume fraction] 40.2 % Normal 37.0 - 47.0 % AO Workflow SS Hemoglobin (Bld) [Mass/Vol] 13.8 G/dL Normal 12.0 - 16.0 G/dL AO Workflow SS Lymphocyte, Absolute 1.1 103/mcL Normal 0.8 - 3 .9 10^3/mcL AO Workflow SS Lymphocytes/100 WBC (Bld) 25.9 % Normal 10.0 - 50.0 % AO Workflow SS MCH (RBC) [Entitic mass] 32.9 pg High 27.0 - 31.2 pg AO Workflow SS MCHC 34.3 G/dL Normal 33.0 - 37.0 G/dL AO Workflow SS MCV (RBC) [Entitic vol] 96.0 fL High 80.0 - 94.0 fL AO Workflow SS Monocyte, Absolute 0.6 103/mcL Normal 0.2 - 1.0 10^3/mcL AO Workflow SS Monocytes/100 WBC (Bld) 13.2 % High 1.7 - 13.0 % AO Workflow SS Neutrophil, Absolute 2.4 103/mcL Low 2.9 - 6 .2 10^3/mcL AO Workflow SS Neutrophils/100 WBC (Bld) 57.7 % Normal 37.0 - 80.0 % AO Workflow SS Platelet mean volume (Bld) [Entitic vol] 7.8 fL Normal 7.4 - 10.4 fL AO Workflow SS Platelets (Bld) [#/Vol] 194 103/mcL Normal 130 - 400 10^3/mcL AO Workflow SS RBC (Bld) [#/Vol] 4.19 106/mcL Low 4.20 - 5.4 0 10^6/mcL AO Workflow SS WBC (Bld) [#/Vol] 4.2 103/mcL Low 4.6 - 10.8 10^3/mcL AO Workflow SS LABORATORYOrdered By: Milagros Christine on 10-26-2023 Cholesterol [Mass/Vol] 175 mg/dL Normal 0 - 200 mg/dL AO ADM SS Comment on above: Interpretive Data: C holesterol Reference Interval: Less than 200 Desirable 200-239 Borderline high risk 240 and above High risk Cholesterol in HDL [Mass/Vol] 78 mg/dL High 40 - 60 mg/dL AO ADM SS Cholesterol in LDL [Mass/Vol] 90 mg/dL Normal 0 - 130 mg/dL AO ADM SS Triglyceride [Mass/Vol] 34 mg/dL Normal 0 - 150 mg/dL AO ADM SS Comment on above: Interpretive Data: T riglyceride Reference Interval: Less than 150 Normal 150-199 Borderline high risk 200-499 High risk 500 or higher Very high risk LIPIDon 10-26-2023 Cholesterol [Mass/Vol] 175 mg/dL Normal 0-200 [facility] ([place]) Comment on above: Result Comment: Chol esterol Reference Interval: Less than 200 Desirable 200-239 Borderline high risk 240 and above High risk Performed By: #### C ISHMAEL, OSMAN, ANEU, VIDH, LIPID ####[address] [place], [place] [address] Cholesterol in HDL [Mass/Vol] 78 mg/dL High 40-60 [facility] ([place] Comment on above: Performed By: #### C ISHMAEL, OSMAN, ANEU, VIDH, LIPID ####[address] [place], [place] [address] Cholesterol in LDL [Mass/Vol] 90 mg/dL Normal 0-130 [facility] ([place] Comment on above: Performed By: #### C ISHMAEL, OSMAN, ANEU, VIDH, LIPID ####[address] [place], [place] [address] Triglyceride [Mass/Vol] 34 mg/dL Normal 0-150 [facility] ([place] Comment on above: Result Comment: Trig lyceride Reference Interval: Less than 150 Normal 150-199 Borderline high risk 200-499 High risk 500 or higher Very high risk Performed By: #### C OSMAN QUIÑONES ANEU, VIDH, LIPID ####[address] [place], [place] [address] VIDHon 10-26-2023 Vit. D 25-Hydroxy 33.1 ng/mL Normal [facility] ([place] Comment on above: Result Comment: Inte rpretive Values Based on Total 25([place]) Vitamin D: Deficient <20 ng/mL Insufficient 20 - <30 ng/mL Sufficient 30-100 ng/mL Performed By: #### C OSMAN QUIÑONES ANEU, VIDH, LIPID ####[address] [place], [place] [address] 36on 10-24-2023 36 Returned pt's call; appt r/s'd. [facility] 36on 10-20-2023 36 Name of Caller: Lisbeth Contact Reason for Appointment: Lisbeth use to see Dr Kwon a couple years ago and needs to follow up Office Name: [facility] .Auto Diffon 08-09-2023 Basophil, Absolute 0.1 10 3/mcL Normal 0.0-0.2 [facility] ([place]) Comment on above: Performed By: #### C OSMAN QUIÑONES ANEU, MDW, BMP, GFR, TROPHS #### [address] [place], [place] [address] Basophils/100 WBC (Bld) 0.8 % Normal 0.0-2.5 [facility] ([place]) Comment on above: Performed By: #### C OSMAN QUIÑONES ANEU, MDW, BMP, GFR, TROPHS #### [id number] [place], [place] [address] Eosinophil, Absolute 0.0 10 3/mcL Normal 0.0-0.4 [facility] ([place]) Comment on above: Performed By: #### C BC, ADIFF, ANEU, MDW, BMP, GFR, TROPHS #### [address] [address] Eosinophils/100 WBC (Bld) 0.4 % Normal 0.0-7.0 [facility] ([place]) Comment on above: Performed By: #### C BC, ADIFF, ANEU, MDW, BMP, GFR, TROPHS #### [address] [address] Lymphocyte, Absolute 1.0 10 3/mcL Normal 0.8-3.9 [facility] ([place]) Comment on above: Performed By: #### C BC, ADIFF, ANEU, MDW, BMP, GFR, TROPHS #### [address] [address] Lymphocytes/100 WBC (Bld) 11.6 % Normal 10.0-50.0 [facility] ([place]) Comment on above: Performed By: #### C BC, ADIFF, ANEU, MDW, BMP, GFR, TROPHS #### [address] [address] Monocyte, Absolute 0.5 10 3/mcL Normal 0.2-1.0 [facility] ([place] Comment on above: Performed By: #### C BC, ADPEGGY, ANEU, MDW, BMP, GFR, TROPHS #### [address] [address] Monocytes/100 WBC (Bld) 6.2 % Normal 1.7-13.0 [facility] ([place] Comment on above: Performed By: #### C BC, ADIFF, ANEU, MDW, BMP, GFR, TROPHS #### [address] [address] Neutrophils/100 WBC (Bld) 81.0 % High 37.0-80.0 [facility] ([place] Comment on above: Performed By: #### C BC, ADIFF, ANEU, MDW, BMP, GFR, TROPHS #### [address] [address] .GFRon 08-09-2023 GFR Non- 71 ml/min/1.73sqm Normal [facility] ([place]) Comment on above: Result Comment: GFR Population mean for , Non- Americans Ages 20-29 = 116 mL/min/1.73 sq.m. Ages 30-39 = 107 mL/min/1.73 sq.m. Ages 40-49 = 99 mL/min/1.73 sq.m. Ages 50-59 = 93 mL/min/1.73 sq.m. Ages 60-69 = 85 mL/min/1.73 sq.m. Ages 70+ = 75 mL/min/1.73 sq.m. Chronic Kidney Disease: Less than 60 mL/min/1.73 square meters End Stage Renal Disease: Less than 15 mL/min/1.73 square meters Performed By: #### C OSMAN QUIÑONES ANEU, JASON, BMP, GFR, TROPHS #### [address] [address] GFR 86 ml/min/1.73sqm Normal [facility] ([place]) Comment on above: Result Comment: GFR Population mean for , Non- Americans Ages 20-29 = 116 mL/min/1.73 sq.m. Ages 30-39 = 107 mL/min/1.73 sq.m. Ages 40-49 = 99 mL/min/1.73 sq.m. Ages 50-59 = 93 mL/min/1.73 sq.m. Ages 60-69 = 85 mL/min/1.73 sq.m. Ages 70+ = 75 mL/min/1.73 sq.m. Chronic Kidney Disease: Less than 60 mL/min/1.73 square meters End Stage Renal Disease: Less than 15 mL/min/1.73 square meters Performed By: #### C OSMAN QUIÑONES ANEU, JASON, BMP, GFR, TROPHS #### [address] [address] .MDWon 08-09-2023 Monocyte Distribution Width 16.54 Normal 0.00-20.00 [facility] ([place]) Comment on above: Result Comment: For ED adult patients suspected of sepsis, MDW<=20.0 does not rule out sepsis or risk of sepsis Performed By: #### C BC, ADIFF, ANEU, MDW, BMP, GFR, TROPHS #### [address] [address] .NEUABSon 08-09-2023 Neutrophil, Absolute 6.7 10 3/mcL High 2.9-6.2 [facility] ([place]) Comment on above: Performed By: #### C BC, ADIFF, ANEU, MDW, BMP, GFR, TROPHS #### [address] [address] BMPon 08-09-2023 BUN/Creatinine Ratio 11 ratio Normal 7-27 [facility] ([place]) Comment on above: Performed By: #### C BC, ADIFF, ANEU, MDW, BMP, GFR, TROPHS #### [address] [address] Calcium [Mass/Vol] 9.8 mg/dL Normal 8.4-10.2 [facility] ([place]) Comment on above: Performed By: #### C BC, ADIFF, ANEU, MDW, BMP, GFR, TROPHS #### [address] [address] Chloride [Moles/Vol] 98 mmol/L Normal 98-107 [facility] ([place] Comment on above: Performed By: #### C BC, ADIFF, ANEU, MDW, BMP, GFR, TROPHS #### [address] [address] CO2 [Moles/Vol] 26 mmol/L Normal 22-29 [facility] ([place]) Comment on above: Performed By: #### C BC, ADIFF, ANEU, MDW, BMP, GFR, TROPHS #### [address] [address] Creatinine [Mass/Vol] 0.85 mg/dL Normal 0.55-1.02 [facility] ([place]) Comment on above: Performed By: #### C BC, ADIFF, ANEU, MDW, BMP, GFR, TROPHS #### [address] [address] Electrolyte Balance 13.0 mEq/L Normal 4.0-15.0 [facility] ([place]) Comment on above: Performed By: #### C OSMAN QUIÑONES ANEU, W, BMP, GFR, TROPHS #### [address] [address] Glucose [Mass/Vol] 95 mg/dL Normal 70-105 [facility] ([place]) Comment on above: Performed By: #### C OSMAN QUIÑONES ANEU, W, BMP, GFR, TROPHS #### [address] [address] Potassium [Moles/Vol] 3.9 mmol/L Normal 3.5-5.1 [facility] ([place] Comment on above: Performed By: #### C OSMAN QUIÑONES ANEU, MDW, BMP, GFR, TROPHS #### [address] [address] Sodium [Moles/Vol] 137 mmol/L Normal 136-145 [facility] ([place]) Comment on above: Performed By: #### C OSMAN QUIÑONES ANEU, MDW, BMP, GFR, TROPHS #### [address] [address] Urea nitrogen [Mass/Vol] 9 mg/dL Normal 7-18 [facility] ([place]) Comment on above: Performed By: #### C OSMAN QUIÑONES ANEU, MDW, BMP, GFR, TROPHS #### [address] [address] CBCon 08-09-2023 Erythrocyte distribution width (RBC) [Ratio] 13.3 % Normal 11.5-14.5 [facility] ([place] Comment on above: Performed By: #### C OSMAN QUIÑONES ANEU, MDW, BMP, GFR, TROPHS #### [address] [address] Hematocrit (Bld) [Volume fraction] 37.8 % Normal 37.0-47.0 [facility] ([place] Comment on above: Performed By: #### C BC, ADIFF, ANEU, MDW, BMP, GFR, TROPHS #### [address] [address] Hgb 13.3 G/dL Normal 12.0-16.0 [facility] ([place] Comment on above: Performed By: #### C BC, ADIFF, ANEU, MDW, BMP, GFR, TROPHS #### [place] [address] MCH (RBC) [Entitic mass] 32.6 pg High 27.0-31.2 [facility] ([place] Comment on above: Performed By: #### C BC, ADPEGGY, ANEU, MDW, BMP, GFR, TROPHS #### [place] [address] MCHC 35.2 G/dL Normal 33.0-37.0 [facility] ([place] Comment on above: Performed By: #### C BC, ADIFF, ANEU, MDW, BMP, GFR, TROPHS #### [address] [address] MCV (RBC) [Entitic vol] 92.6 fL Normal 80.0-94.0 [facility] ([place] Comment on above: Performed By: #### C BC, ADPEGGY, ANEU, MDW, BMP, GFR, TROPHS #### [address] [address] Platelet 213 10 3/mcL Normal 130-400 [facility] ([place] Comment on above: Performed By: #### C BC, ADIFF, ANEU, MDW, BMP, GFR, TROPHS #### [address] [address] Platelet mean volume (Bld) [Entitic vol] 7.2 fL Low 7.4-10.4 [facility] ([place] Comment on above: Performed By: #### C BC, ADIFF, ANEU, MDW, BMP, GFR, TROPHS #### [place] [address] RBC 4.08 10 6/mcL Low 4.20-5.40 [facility] ([place] Comment on above: Performed By: #### C OSMAN QUIÑONES ANEU, MDW, CHARLINE, GFR, TROPHS #### [address] [place], [place] [address] WBC 8.2 10 3/mcL Normal 4.6-10.8 [facility] ([place] Comment on above: Performed By: #### C OSMAN QUIÑONES ANEU, MDW, BMP, GFR, TROPHS #### [address] [place], [place] [address] LABORATORYOrdered By: SYSTEM SYSTEM on 08-09-2023 Basophil, Absolute 0.1 103/mcL Normal 0.0 - 0.2 10^3/mcL AO Workflow SS Basophils/100 WBC (Bld) 0.8 % Normal 0.0 - 2.5 % AO Workflow SS Calcium [Mass/Vol] 9.8 mg/dL Normal 8.4 - 10. 2 mg/dL AO ADM SS Chloride [Moles/Vol] 98 mmol/L Normal 98 - 10 7 mmol/L AO ADM SS CO2 [Moles/Vol] 26 mmol/L Normal 22 - 29 mmol/L AO ADM SS Creatinine [Mass/Vol] 0.85 mg/dL Normal 0.55 - 1.02 mg/dL AO ADM SS Electrolyte Balance 13.0 mEq/L Normal 4.0 - 15 .0 mEq/L AO ADM SS Eosinophil, Absolute 0.0 103/mcL Normal 0.0 - 0 .4 10^3/mcL AO Workflow SS Eosinophils/100 WBC (Bld) 0.4 % Normal 0.0 - 7.0 % AO Workflow SS Erythrocyte distribution width (RBC) [Ratio] 13.3 % Normal 11.5 - 14.5 % AO Workflow SS GFR/1.73 sq M.predicted among blacks MDRD (S/P/Bld) [Vol rate/Area] 86 ml/min/1.73sqm Invalid Interpretation Code AO Chemistry S Comment on above: Interpretive Data: GFR Population mean for , Non- Americans Ages 20-29 = 116 mL/min/1.73 sq.m. Ages 30-39 = 107 mL/min/1.73 sq.m. Ages 40-49 = 99 mL/min/1.73 sq.m. Ages 50-59 = 93 mL/min/1.73 sq.m. Ages 60-69 = 85 mL/min/1.73 sq.m. Ages 70+ = 75 mL/min/1.73 sq.m. Chronic Kidney Disease: Less than 60 mL/min/1.73 square meters End Stage Renal Disease: Less than 15 mL/min/1.73 square meters GFR/1.73 sq M.predicted among non-blacks MDRD (S/P/Bld) [Vol rate/Area] 71 ml/min/1.73sqm Invalid Interpretation Code AO Chemistry S Comment on above: Interpretive Data: GFR Population mean for , Non- Americans Ages 20-29 = 116 mL/min/1.73 sq.m. Ages 30-39 = 107 mL/min/1.73 sq.m. Ages 40-49 = 99 mL/min/1.73 sq.m. Ages 50-59 = 93 mL/min/1.73 sq.m. Ages 60-69 = 85 mL/min/1.73 sq.m. Ages 70+ = 75 mL/min/1.73 sq.m. Chronic Kidney Disease: Less than 60 mL/min/1.73 square meters End Stage Renal Disease: Less than 15 mL/min/1.73 square meters Glucose [Mass/Vol] 95 mg/dL Normal 70 - 105 mg/dL AO ADM SS Hematocrit (Bld) [Volume fraction] 37.8 % Normal 37.0 - 47.0 % AO Workflow SS Hemoglobin (Bld) [Mass/Vol] 13.3 G/dL Normal 12.0 - 16.0 G/dL AO Workflow SS Lymphocyte, Absolute 1.0 103/mcL Normal 0.8 - 3 .9 10^3/mcL AO Workflow SS Lymphocytes/100 WBC (Bld) 11.6 % Normal 10.0 - 50.0 % AO Workflow SS MCH (RBC) [Entitic mass] 32.6 pg High 27.0 - 31.2 pg AO Workflow SS MCHC 35.2 G/dL Normal 33.0 - 37.0 G/dL AO Workflow SS MCV (RBC) [Entitic vol] 92.6 fL Normal 80.0 - 94.0 fL AO Workflow SS Monocyte distribution width Auto (Bld) [Entitic vol] 16.54 1 Normal 0.00 - 20.00 AO Workflow SS Comment on above: Result Comment: For ED adult patients suspected of sepsis, MDW<=20.0 does not rule out sepsis or risk of sepsis Monocyte, Absolute 0.5 103/mcL Normal 0.2 - 1.0 10^3/mcL AO Workflow SS Monocytes/100 WBC (Bld) 6.2 % Normal 1.7 - 13.0 % AO Workflow SS Neutrophil, Absolute 6.7 103/mcL High 2.9 - 6 .2 10^3/mcL AO Workflow SS Neutrophils/100 WBC (Bld) 81.0 % High 37.0 - 80.0 % AO Workflow SS Platelet mean volume (Bld) [Entitic vol] 7.2 fL Low 7.4 - 10.4 fL AO Workflow SS Platelets (Bld) [#/Vol] 213 103/mcL Normal 130 - 400 10^3/mcL AO Workflow SS Potassium [Moles/Vol] 3.9 mmol/L Normal 3.5 - 5.1 mmol/L AO ADM SS RBC (Bld) [#/Vol] 4.08 106/mcL Low 4.20 - 5.4 0 10^6/mcL AO Workflow SS Sodium [Moles/Vol] 137 mmol/L Normal 136 - 145 mmol/L AO ADM SS Troponin I.cardiac DL <= 0.01 ng/mL [Mass/Vol] ng/L Normal 0 - 51 ng/L AO ADM SS Comment on above: Interpretive Data: H igh Sensitive Troponin I Reference Ranges: Female: 0-51 ng/L Male: 0-76 ng/L Testing performed on Fii[employer] using a homogeneous sandwich chemiluminescent immunoassay based on PASSNFLY technology. Urea nitrogen [Mass/Vol] 9 mg/dL Normal 7 - 18 mg/dL AO ADM SS Urea nitrogen/Creatinine [Mass ratio] 11 ratio Normal 7 - 27 ratio AO ADM SS WBC (Bld) [#/Vol] 8.2 103/mcL Normal 4.6 - 10.8 10^3/mcL AO Workflow SS TROPHSon 08-09-2023 High Sensitivity Troponin I <4 Normal 0-51 [facility] ([place]) Comment on above: Result Comment: High Sensitive Troponin I Reference Ranges: Female: 0-51 ng/L Male: 0-76 ng/L Testing performed on Fiiiling using a homogeneous sandwich chemiluminescent immunoassay based on PASSNFLY technology. Performed By: #### C BC, OSMAN, SUPRIYA, MDW, BMP, GFR, TROPHS #### [id number] [place], [place] [address] XR CHEST 1 VIEWon 08-09-2023 XR CHEST 1 VIEW ORIGINAL EXAMINATION: ONE XRAY VIEW OF THE CHEST 08/09/2023 9:28 pm COMPARISON: 05/08/2019 HISTORY: ORDERING SYSTEM PROVIDED HISTORY: Reason for Exam: chest pain FINDINGS: The cardiomediastinal silhouette appears normal. There is no focal consolidation. There is no pulmonary edema. There is no evidence of pleural effusion. There is no evidence of pneumothorax. No fracture is identified. IMPRESSION: No acute abnormality is identified. Interpreted by: Loco Garcia Preliminary Report By: Loco Garcia Electronically signed By Loco Garcia Dictated Date: 08/09/2023 9:38:39 PM Prelim Date: 08/09/2023 9:38:59 PM Sign Date: 08/09/2023 9:38:59 PM Ordering Provider[facility] XR SPINE THORACIC 2 VIEWSon 08-09-2023 XR SPINE THORACIC 2 VIEWS ORIGINAL EXAMINATION: TWO XRAY VIEWS OF THE THORACIC SPINE 08/09/2023 9:30 pm COMPARISON: 08/02/2013 HISTORY: ORDERING SYSTEM PROVIDED HISTORY: Reason for Exam: pain FINDINGS: Thoracic vertebral bodies are normal in height and alignment. There are no significant degenerative changes. No evidence of fracture. Pedicles are symmetric and intact. Visualized lungs are clear. IMPRESSION: No acute abnormality of the thoracic spine Interpreted by: Loco Garcia Preliminary Report By: Loco Garcia Electronically signed By Loco Garcia Dictated Date: 08/09/2023 9:39:09 PM Prelim Date: 08/09/2023 9:39:26 PM Sign Date: 08/09/2023 9:39:26 PM Ordering Provider: NICOLESrikanth ALBERTO [facility]) LABORATORYOrdered By: Tushar Hunt on 10-05-2022 Albumin DL <= 20 mg/L (U) [Mass/Vol] 480 mcg/dL Invalid Interpretation Code AO ADM SS Albumin/Creatinine DL <= 20 mg/L (U) [Mass ratio] 9 mcg/mg Invalid Interpretation Code 0 - 30 mcg/mg AO ADM SS Creatinine (U) [Mass/Vol] 55.5 mg/dL Invalid Interpretation Code 28.0 - 117.0 mg/dL AO ADM SS Cholesterol [Mass/Vol] 158 mg/dL Invalid Interpretation Code 0 - 200 mg/dL AO ADM SS Cholesterol in HDL [Mass/Vol] 66 mg/dL Invalid Interpretation Code 40 - 60 mg/dL AO ADM SS Cholesterol in LDL [Mass/Vol] 82 mg/dL Invalid Interpretation Code 0 - 130 mg/dL AO ADM SS Triglyceride [Mass/Vol] 48 mg/dL Invalid Interpretation Code 0 - 150 mg/dL AO ADM SS LABORATORYOrdered By: SYSTEM SYSTEM on 10-05-2022 25-hydroxyvitamin D3 [Mass/Vol] 33.5 ng/mL Invalid Interpretation Code AO ADM SS Calcium [Mass/Vol] 8.9 mg/dL Invalid Interpretation Code 8.4 - 10.2 mg/dL AO ADM SS Chloride [Moles/Vol] 101 mmol/L Invalid Interpretation Code 98 - 107 mmol/L AO ADM SS CO2 [Moles/Vol] 26 mmol/L Invalid Interpretation Code 22 - 29 mmol/L AO ADM SS Cobalamin (Vitamin B12) [Mass/Vol] 335 pg/mL Invalid Interpretation Code 211 - 911 pg/mL AH ADM SS Creatinine [Mass/Vol] 0.85 mg/dL Invalid Interpretation Code 0.55 - 1.02 mg/dL AO ADM SS Electrolyte Balance 8.0 mEq/L Invalid Interpretation Code 4.0 - 15.0 mEq/L AO ADM SS Folate [Mass/Vol] 10.86 ng/mL Invalid Interpretation Code 5.38 - 24.00 ng/mL AH ADM SS GFR/1.73 sq M.predicted among blacks MDRD (S/P/Bld) [Vol rate/Area] 87 ml/min/1.73sqm Invalid Interpretation Code AO Chemistry S GFR/1.73 sq M.predicted among non-blacks MDRD (S/P/Bld) [Vol rate/Area] 71 ml/min/1.73sqm Invalid Interpretation Code AO Chemistry S Glucose [Mass/Vol] 91 mg/dL Invalid Interpretation Code 70 - 105 mg/dL AO ADM SS HbA1c (Bld) [Mass fraction] 5.0 % Invalid Interpretation Code 4.3 - 6.4 % AO ADM SS Potassium [Moles/Vol] 5.2 mmol/L Invalid Interpretation Code 3.5 - 5.1 mmol/L AO ADM SS Sodium [Moles/Vol] 135 mmol/L Invalid Interpretation Code 136 - 145 mmol/L AO ADM SS TSH Qn 1.42 m[IU]/L Invalid Interpretation Code 0.36 - 3.74 mcIU/mL AO ADM SS Urea nitrogen [Mass/Vol] 14 mg/dL Invalid Interpretation Code 7 - 18 mg/dL AO ADM SS Urea nitrogen/Creatinine [Mass ratio] 16 ratio Invalid Interpretation Code 7 - 27 ratio AO ADM SS LABORATORYOrdered By: Claudette Simmons on 10-05-2022 Basophil %, Manual 0.0 1 Invalid Interpretation Code 0.0 - 2.5 % AO Workflow SS Basophil, Abs Manual 0.0 103/mcL Invalid Interpretation Code 0.0 - 0.2 10^3/mcL AO Workflow SS Eosinophil %, Manual 2.0 1 Invalid Interpretation Code 0.0 - 7.0 % AO Workflow SS Eosinophils (Bld) [#/Vol] 0.1 103/mcL Invalid Interpretation Code 0.0 - 0.4 10^3/mcL AO Workflow SS Erythrocyte distribution width (RBC) [Ratio] 14.2 % Invalid Interpretation Code 11.5 - 14.5 % AO Workflow SS Hematocrit (Bld) [Volume fraction] 40.3 % Invalid Interpretation Code 37.0 - 47.0 % AO Workflow SS Hemoglobin (Bld) [Mass/Vol] 13.7 G/dL Invalid Interpretation Code 12.0 - 16.0 G/dL AO Workflow SS Lymphocyte %, Manual 46.0 1 Invalid Interpretation Code 10.0 - 50.0 % AO Workflow SS Lymphocyte, Abs Manual 1.3 103/mcL Invalid Interpretation Code 0.8 - 3.9 10^3/mcL AO Workflow SS MCH (RBC) [Entitic mass] 32.0 pg Invalid Interpretation Code 27.0 - 31.2 pg AO Workflow SS MCHC 34.0 G/dL Invalid Interpretation Code 33.0 - 37.0 G/dL AO Workflow SS MCV (RBC) [Entitic vol] 94.0 fL Invalid Interpretation Code 80.0 - 94.0 fL AO Workflow SS Monocyte %, Manual 3.0 1 Invalid Interpretation Code 1.7 - 13.0 % AO Workflow SS Monocyte, Abs Manual 0.1 103/mcL Invalid Interpretation Code 0.2 - 1.0 10^3/mcL AO Workflow SS Neutrophil %, Manual 49.0 1 Invalid Interpretation Code 37.0 - 80.0 % AO Workflow SS Neutrophil, Abs Manual 1.4 103/mcL Invalid Interpretation Code 2.9 - 6.2 10^3/mcL AO Workflow SS Nucleated RBC 0.0 /100 WBC Invalid Interpretation Code AO Workflow SS Platelet Estimate Normal (10/05/22 4:06 PM) Invalid Interpretation Code AO Hematology S Platelet mean volume (Bld) [Entitic vol] 8.0 fL Invalid Interpretation Code 7.4 - 10.4 fL AO Workflow SS Platelets (Bld) [#/Vol] 173 103/mcL Invalid Interpretation Code 130 - 400 10^3/mcL AO Workflow SS RBC (Bld) [#/Vol] 4.29 106/mcL Invalid Interpretation Code 4.20 - 5.40 10^6/mcL AO Workflow SS WBC (Bld) [#/Vol] 2.9 103/mcL Invalid Interpretation Code 4.6 - 10.8 10^3/mcL AO Workflow SS LABORATORYOrdered By: Mansi Garrido on 10-05-2022 HCV Ab IA Ql Non-Reactive (10/05/22 4:06 PM) Invalid Interpretation Code Non-Reactive ADM SS HCV Ab IA Ql Nonreactive: Samples with a value < 0.80 are considered nonreactive (negative) for antibodies to HCV.A negative test result does not exclude the possibility of exposure to or infection with HCV. HCV antibodies may be undetectable in some stages of the infection and in some clinical conditions. Invalid Interpretation Code Chemistry S No Panel Informationon 11-10 Culture Urine <10,000 cfu/ml. No Significant growth. Sensitivity not indicated. [facility] LABORATORYOrdered By: Tushar Hunt on 04-03-2021 ADMITTED TO INTENSIVE CARE UNIT FOR CONDITION OF INTEREST:FIND:PT:^PAT IENT:ORD: No (04/03/21 12:04 PM) Invalid Interpretation Code AO Auto Urine SS EMPLOYED IN A HEALTHCARE SETTING:FIND:PT:^BLANCHE ENT:ORD: Yes (04/03/21 12:04 PM) Invalid Interpretation Code AO Auto Urine SS FIRST TEST FOR CONDITION OF INTEREST:FIND:PT:^PAT IENT:ORD: Unknown (04/03/21 12:04 PM) Invalid Interpretation Code AO Auto Urine SS HAS SYMPTOMS RELATED TO CONDITION OF INTEREST:FIND:PT:^PAT IENT:ORD: No (04/03/21 12:04 PM) Invalid Interpretation Code AO Auto Urine SS Illness or injury onset date and time [id number] Invalid Interpretation Code AO Auto Urine SS Patient was hospitalized because of this condition No (04/03/21 12:04 PM) Invalid Interpretation Code AO Auto Urine SS status Not (04/03/21 12:04 PM) Invalid Interpretation Code AO Auto Urine SS RESIDES IN A CONGREGATE CARE SETTING:FIND:PT:^BLANCHE ENT:ORD: No (04/03/21 12:04 PM) Invalid Interpretation Code AO Auto Urine SS SARS-CoV-2 (COVID-19) RNA CHASITY+probe Ql (Resp) Positive *ABN* (04/03/21 12:04 PM) Invalid Interpretation Code Negative AO Auto Urine SS SARS-CoV-2 (COVID-19) RNA CHASITY+probe Ql (Unsp spec) Positive results are indicative of the presence of SARS-CoV-2 RNA; clinical correlation with patient history and other diagnostic information is necessary to determine patient infection status. Positive results do not rule out bacterial infection or co-infection with other viruses. The agent detected may not be the definite cause of disease. Laboratories within the [facility] and its territories are required to report all positive results to the appropriate public health authorities.Detection of analyte target(s) does not imply that the corresponding virus(es) are infectious or are the causative agents for clinical symptoms.There is a risk of false positive values resulting from cross-contamination by target organisms, their nucleic acids or amplified product, or from non-specific signals in the assay.ZULMA SARS-CoV-2 Assay is a Real-Time reverse-transcriptase polymerase chain reaction (RT-PCR) based qualitative in vitro diagnostic test intended for the qualitative detection of nucleic acid from the SARS-CoV-2 in nasopharyngeal swab specimens collected from individuals suspected of COVID-19 by their healthcare provider. Testing is limited to laboratories certified under the Clinical Laboratory Improvement Amendments of 1988 (CLIA), 42 U.S.C. 263a, to perform moderate and high complexity tests. Invalid Interpretation Code AO Auto Urine SS CR Hand Complete 3+ Views Bi lateralon 10-12-2018 CR Hand Complete 3+ Views Bilateral Patient Name: LISBETH KEE Diagnostic Radiology Exam Date/Time 10/11/2018 12:15:00 EDT Exam CR Hand Complete 3+ Views Bilateral Ordering Physician MD LASHAE, ANN MARIE Foreman Accession Number [id number] CPT4 Codes 29728 () Reason For Exam joint pain Report Indication: Joint pain. PA, oblique and lateral views of the right and left hands. Right hand: No fracture, dislocation or bony destruction. Normal mineralization. Joint spaces are maintained. No osseous erosions. Left hand: No fracture, dislocation or bony destruction. Normal mineralization. No osseous erosions. Alignment is maintained. Joint spaces are maintained. IMPRESSION: No significant bony abnormality of the right and left hands. Report Dictated on Final Dictated: 10/12/2018 11:01 am Dictating Physician: MD RED LAURA Signed Date and Time: 10/12/2018 11:02 am Signed by: MD RED LAURA Transcribed Date and Time: 10/12/2018 11:01 [facility] Vital Signs Date Time Vital Sign Value Performing Clinician Facility 11-12-2024 13:10-0400 Body height 175.26 cm No Primary Care Physician [facility] 11-12-2024 13:02-0400 Body mass index (BMI) [Ratio] 20.2 kg/m2 No Primary Care Physician [facility] 11-12-2024 13:02-0400 Body weight 62.14 kg No Primary Care Physician [facility] 01-18-2024 12:40-0400 Body height 175.3 cm [employer] DO Work Phone: [facility] 01-18-2024 12:40-0400 Body mass index (BMI) [Ratio] 21.41 kg/m2 [employer]ovanni [employer] DO Work Phone: [facility] 01-18-2024 12:40-0400 Body temperature 98.49 [degF] Geovanni Varmai DO Work Phone: [facility] 01-18-2024 12:40-0400 Body weight 65.77 kg Geovanni Varmai DO Work Phone: [facility] 01-18-2024 12:40-0400 Diastolic blood pressure 94 mm[Hg] Geovanni Varmai DO Work Phone: [facility] 01-18-2024 12:40-0400 Heart rate 85 /min Geovanni Zamora DO Work Phone: [facility] 01-18-2024 12:40-0400 SaO2% (BldA) [Mass fraction] 99 % Geovanni Zamora DO Work Phone: [facility] 01-18-2024 12:40-0400 Systolic blood pressure 144 mm[Hg] Geovanni Varmacelso DO Work Phone: [facility] 08-09-2023 22:29-0400 Diastolic blood pressure 88 mm[Hg] DR NICOLE ALBERTO DO [facility] 08-09-2023 22:29-0400 Heart rate 71 /min DR NICOLE ALBERTO DO [facility] 08-09-2023 22:29-0400 Respiratory rate 17 /min DR NICOLE ALBERTO DO [facility] 08-09-2023 22:29-0400 Systolic blood pressure 151 mm[Hg] DR NICOLE ALBERTO DO [facility] 08-09-2023 21:31-0400 Diastolic Blood Pressure Non-Invasive 85 mm[Hg] DR NICOLE ALBERTO DO [facility] 08-09-2023 21:31-0400 Heart rate 72 /min DR NICOLE ALBERTO DO [facility] 08-09-2023 21:31-0400 Respiratory rate 20 /min DR NICOLE ALBERTO DO [facility] 08-09-2023 21:31-0400 Systolic Blood Pressure Non-Invasive 138 mm[Hg] DR NICOLE ALBERTO DO [facility] 08-09-2023 21:07-0400 Body temperature 97.16 [degF] DR NICOLE ALBERTO DO [facility] 08-09-2023 21:07-0400 Body weight 65.[address] NICOLE ALBERTO DO [facility] 08-09-2023 21:07-0400 Diastolic Blood Pressure Non-Invasive 98 mm[Hg] DR NICOLE ALBERTO DO [facility] 08-09-2023 21:07-0400 Heart rate 86 /min DR NICOLE ALBERTO DO [facility] 08-09-2023 21:07-0400 Respiratory rate 22 /min DR NICOLE ALBERTO DO [facility] 08-09-2023 21:07-0400 Systolic Blood Pressure Non-Invasive 154 mm[Hg] DR NICOLE ALBERTO DO [facility] Encounters Encounter Date Encounter Type Care Provider Facility Start: 12-13-2024 ambulatory RENETTA MAST Facility:[facility] Start: 11-12-2024 End: 11-12-[address] Shon Mason MD -[facility] Start: 11-12-2024 End: 11-12-2024 ambulatory No Primary Care Physician [facility] Work Phone: Start: 10-31-2024 End: 10-31-2024 ambulatory RENETTA MAST MEDICAL TECHNOLOGIST MICROBIOLOGY-SLITTER AND REWINDER MACHINE OPERATOR Facility[facility] Start: 10-31-2024 End: 10-31-2024 Patient encounter procedure RENETTA MAST MEDICAL TECHNOLOGIST MICROBIOLOGY-SLITTER AND REWINDER MACHINE OPERATOR [facility] Start: 09-27-2024 End: 09-27-2024 Telephone encounter Loco Jean-Baptiste MD Work Phone: [facility] Comment on above: New Patient Start: 09-06-2024 End: 09-06-2024 Emergency department patient visit DR GILMA PATTERSON MD Facility:[facility] Start: 08-31-2024 End: 08-31-2024 ambulatory RENETTA MAST MEDICAL TECHNOLOGIST MICROBIOLOGY-SLITTER AND REWINDER MACHINE OPERATOR Facility:[facility] Start: 08-17-2024 End: 08-20-2024 Telephone encounter Geovanni Zamora DO Work Phone: [place] [facility] Adult Comment on above: Results Start: 05-25-2024 End: 05-29-2024 ambulatory JUAN C SHI MEDICAL TECHNOLOGIST MICROBIOLOGY-SLITTER AND REWINDER MACHINE OPERATOR Facility:[facility] Start: 05-25-2024 End: 05-29-2024 Outreach Lab JUAN C OSULLIVAN MEDICAL TECHNOLOGIST MICROBIOLOGY-SLITTER AND REWINDER MACHINE OPERATOR [facility] Start: 02-29-2024 End: 02-29-2024 ambulatory RENETTA MAST Facility:[facility] Start: 02-29-2024 End: 02-29-2024 Subsequent hospital visit by physician Mri Radio [facility] (I-Stat/1.5t) Work Phone: Radiology Comment on above: Chronic bilateral th oracic back pain [M54.6, G89.29] Start: 01-19-2024 End: 01-30-2024 Telephone encounter Chilango Aaron Hematology/Oncology Comment on above: Initial Consult Start: 01-18-2024 End: 01-18-2024 Subsequent hospital visit by physician Xr [facility] Luis Work Phone: Radiology Comment on above: Malignant neoplasm o f upper-outer quadrant of left breast in female, estrogen receptor positive (HCC) [C50.412, Z17.0] Start: 01-18-2024 End: 01-18-2024 ambulatory Geovanni Zamora DO Work Phone: Hematology/Oncology Comment on above: Malignant neoplasm o f upper-outer quadrant of left breast in female, estrogen receptor positive (HCC) (Primary Dx); Chronic bilateral thoracic back pain; Other neutropenia (HCC); Anxiety associated with cancer diagnosis (HCC) Start: 01-18-2024 End: 01-18-2024 Patient encounter procedure Geovanni Zamora DO Work Phone: Hematology/Oncology Start: 11-09-2023 End: 11-09-2023 ambulatory RENETTA MAST Facility:[facility] Start: 11-09-2023 End: 11-09-2023 Patient encounter procedure RENETTA MAST MEDICAL TECHNOLOGIST MICROBIOLOGY-SLITTER AND REWINDER MACHINE OPERATOR [facility] Start: 10-26-2023 End: 10-26-2023 ambulatory RENETTA MAST Facility:[facility] Start: 10-26-2023 End: 10-26-2023 Patient encounter procedure RENETTA MAST MEDICAL TECHNOLOGIST MICROBIOLOGY-SLITTER AND REWINDER MACHINE OPERATOR [facility] Start: 08-17-2023 End: 10-03-2023 ambulatory RENETTA MAST Facility:[facility] Start: 08-17-2023 End: 10-03-2023 Anesthesia consultation RENETTA MAST MEDICAL TECHNOLOGIST MICROBIOLOGY-SLITTER AND REWINDER MACHINE OPERATOR [facility] Start: 08-09-2023 End: 08-09-2023 Emergency department patient visit DR NICOLE ALBERTO DO [facility] Start: 02-22-2023 End: 02-26-2023 ambulatory EDIL NICK DO Facility:[facility] Start: 12-07-2022 End: 12-11-2022 ambulatory EDIL NICK DO Facility:[facility] Start: 12-07-2022 End: 12-11-2022 Encounter for general adult medical examination without abnormal findings [facility]OV [facility] Facility:[facility] Start: 10-05-2022 End: 10-05-2022 Patient encounter procedure EDIL NICK DO [facility] Start: 08-18-2022 End: 08-22-2022 Outreach Lab RENETTA MAST MEDICAL TECHNOLOGIST MICROBIOLOGY-SLITTER AND REWINDER MACHINE OPERATOR [facility] Start: 11-10-2021 End: 11-14-2021 Outreach Lab CHAVEZ ROCK MEDICAL TECHNOLOGIST MICROBIOLOGY-SLITTER AND REWINDER MACHINE OPERATOR [facility] Start: 04-03-2021 End: 04-03-2021 Patient encounter procedure SIXTO VACA MEDICAL TECHNOLOGIST MICROBIOLOGY-SLITTER AND REWINDER MACHINE OPERATOR [facility] Procedures Date Procedure Procedure Detail Performing Clinician Start: 02-29-2024 Mri spinal canal tho racic w/o & w/contr matrl Geovanni Lundy Masci DO Work Phone: Start: 01-18-2024 Radex spine thoracic 2 views Geovanni Nikkie Masci DO Work Phone: Start: 10-09-2018 Mastectomy of left breast SIXTO VACA MEDICAL TECHNOLOGIST MICROBIOLOGY-SLITTER AND REWINDER MACHINE OPERATOR H/O: hysterectomy History of hysterectomy RENETTA MAST MEDICAL TECHNOLOGIST MICROBIOLOGY-SLITTER AND REWINDER MACHINE OPERATOR Hysterectomy SIXTO VACA MEDICAL TECHNOLOGIST MICROBIOLOGY-SLITTER AND REWINDER MACHINE OPERATOR Ligation of fallopian tube P LATOYA VACA MEDICAL TECHNOLOGIST MICROBIOLOGY-SLITTER AND REWINDER MACHINE OPERATOR Stereotactically amol ded core needle biopsy of breast SIXTO VACA MEDICAL TECHNOLOGIST MICROBIOLOGY-SLITTER AND REWINDER MACHINE OPERATOR Comment on above: Left Tonsillectomy and adenoidectomy SIXTO VACA MEDICAL TECHNOLOGIST MICROBIOLOGY-SLITTER AND REWINDER MACHINE OPERATOR Plan of Treatment Date Care Activity Detail Author Start: 2048 RSV Immunization for Adults (1 - 1-dose 75+ series) RSV Immunization for Adults (1 - 1-dose 75+ series) [facility] Start: 11-26-2027 DTaP/Tdap/Td Vaccine s (2 - Td or Tdap) DTaP/Tdap/Td Vaccines (2 - Td or Tdap) [facility] Start: 11-26-2027 Urine microalbumin profile DTaP,Tdap,Td Vaccine (2 - Td or Tdap) [facility] Start: 01-17-2027 Diabetes Screening Diabetes Screenin g [facility] Start: 04-25-2025 End: 04-25-2025 Patient encounter procedure 04/25/2025 1:00 PM EST Office Visit [facility] [address] [place] [id number] Loco Jean-Baptiste MD [address] [place] [address] [facility] Start: 01-21-2025 Influenza vaccination Influenz a Vaccine (Season Ended) [facility] Start: 11-12-2024 X-ray of cervical spine Cerv S pine 4 or [address] [facility] Start: 11-12-2024 XR Cervical spine 4 or [address] [facility] Start: 07-18-2024 End: 07-18-2024 ambulatory 07/18/2024 10:10 AM EST Visit (SP) Office Hematology/Oncology [address] [place], [place] [phone] Geovanni Zamora DO [address] [place], [place] [phone] 6 MO OV* Hematology/Oncology Comment on above: 6 MO OV* Start: 03-08-2024 End: 03-08-2024 ambulatory 03/08/2024 2:00 PM EDT [facility] [address] [place] [address] Delicia Smith, [place] [address] [place] [address] Malignant neoplasm of upper-outer quadrant of left breast in female, estrogen receptor positive (HCC) [C50.412, Z17.0] 5 CUPS and some sugar [facility] Comment on above: Malignant neoplasm o f upper-outer quadrant of left breast in female, estrogen receptor positive (HCC) [C50.412, Z17.0] Start: 02-29-2024 End: 02-29-2024 Patient encounter procedure 02/29/2024 3:00 PM EDT Appointment Radiology [address] [place], [place] [phone] Chronic bilateral thoracic back pain [M54.6, G89.29] Radiology Comment on above: Chronic bilateral th oracic back pain [M54.6, G89.29] Start: 01-22-2024 Covid-19 Vaccine ( season) Covid-19 Vaccine ( season) [facility] Start: 01-22-2024 Covid-19 Vaccine ( season) Covid-19 Vaccine ( season) [facility] Start: 01-22-2024 Influenza vaccination Influenza Vacc ine (#1) [facility] Start: 11-06-2023 Screening for malign ant neoplasm of lung Lung Cancer Screening [facility] Start: 11-06-2023 Shingrix Vaccine (1 of 2) Shingrix Vaccine (1 of 2) [facility] Start: 01-21-2023 Covid-19 Vaccine ( season) Covid-19 Vaccine ( season) [facility] Start: 2018 Lipid panel Lipid Screening [facility] Start: 2018 Screening for malign ant neoplasm of colon [facility] Start: 2013 Screening for malign ant neoplasm of breast [facility] Start: 11-06-2003 Screening for malign ant neoplasm of cervix [facility] Start: 09-19-1996 Hepatitis B Vaccines (2 of 3 - 19+ 3-dose series) Hepatitis B Vaccines (2 of 3 - 19+ 3-dose series) [facility] Start: 1994 Screening for malign ant neoplasm of cervix [facility] Start: 1992 Pneumococcal Vaccine : 50+ (1 of 2 - PCV) Pneumococcal Vaccine: 50+ (1 of 2 - PCV) [facility] Start: 1992 Pneumococcal Vaccine : 50+ Years (1 of 2 - PCV) Pneumococcal Vaccine: 50+ Years (1 of 2 - PCV) [facility] Start: 1992 Zoster Vaccines (1 o f 2) Zoster Vaccines (1 of 2) [facility] Start: 11-06-1991 Anxiety Screening Anxiety Screening [facility] Start: 11-06-1991 Depression Screening Depression Scre ening [facility] Start: 11-06-1991 Diabetes mellitus screening Diabetes Screening [facility] Start: 11-06-1991 Hepatitis C screening Hepatitis C Sc reening [facility] Start: 11-06-1991 HIV screening HIV Screening [facility] Start: 1985 [facility]: [facility]1979 Pneumococcal vaccination Pneumococcal Vaccine (1 of 2 - PCV) [facility] Start: 1978 COVID-19 Vaccine (#1) COVID-19 Vacci ne (#1) [facility] Start: 1974 MMR Vaccines (1 of 1 - Standard series) MMR Vaccines (1 of 1 - Standard series) [facility] Start: 1973 HIV screening HIV Screening [facility] Start: 1973 Screening for malign ant neoplasm of colon [facility] End: 02-24-2025 MR Thoracic spine WO and W contrast IV MRI THORACIC SPINE WO/W IVCON Radiology Routine Chronic bilateral thoracic back pain Malignant neoplasm of upper-outer quadrant of left breast in female, estrogen receptor positive (HCC) 1 Occurrences starting 01/26/2024 until 02/24/2025 [facility] Work Phone: Comment on above: 1 Occurrences starti ng 01/26/2024 until 02/24/2025 End: 02-16-2025 XR Thoracic spine AP and Lateral XR THORACIC LIMITED 2V AP/LAT Radiology Routine Malignant neoplasm of upper-outer quadrant of left breast in female, estrogen receptor positive (HCC) Chronic bilateral thoracic back pain 1 Occurrences starting 01/18/2024 until 02/16/2025 [facility] Work Phone: Comment on above: 1 Occurrences starti ng 01/18/2024 until 02/16/2025 XR Thoracic spine AP and Lateral XR THORACIC LIMITED 2V AP/LAT Radiology Routine Malignant neoplasm of upper-outer quadrant of left breast in female, estrogen receptor positive (HCC) Chronic bilateral thoracic back pain 01/18/2024 2:25 PM EDT [facility] Immunizations Immunization Date Immunization Notes Care Provider Nighat stephenson 10-31-2024 zoster vaccine recombinant; Translations: [Shingrix] RENETTA REYES MEDICAL TECHNOLOGIST MICROBIOLOGY-SLITTER AND REWINDER MACHINE OPERATOR [facility] 11-25-2017 tetanus toxoid, redu jose diphtheria toxoid, and acellular pertussis vaccine, adsorbed SIXTO VACA MEDICAL TECHNOLOGIST MICROBIOLOGY-SLITTER AND REWINDER MACHINE OPERATOR [facility] 04-08-2015 influenza virus vaccine, unspecified formulation SIXTO VACA MEDICAL TECHNOLOGIST MICROBIOLOGY-SLITTER AND REWINDER MACHINE OPERATOR [facility] 08-22-1996 hepatitis B vaccine, adult dosage SIXTO VACA MEDICAL TECHNOLOGIST MICROBIOLOGY-SLITTER AND REWINDER MACHINE OPERATOR [facility] 03-27-1996 hepatitis B pediatri c vaccine SIXTO VACA MEDICAL TECHNOLOGIST MICROBIOLOGY-SLITTER AND REWINDER MACHINE OPERATOR [facility] 02-22-1996 hepatitis B pediatri c vaccine SIXTO VACA MEDICAL TECHNOLOGIST MICROBIOLOGY-SLITTER AND REWINDER MACHINE OPERATOR [facility] Payers Date Payer Category Payer Self-pay 2022 Unknown [id number] 2021 Medicaid [place] [employer] [place] [id number] 2018 Medicaid [id number] 2018 Unknown [id number] 1973 Unknown [id number] 1973 Unknown [id number] 1973 Unknown [id number] 1973 Unknown [id number] 1973 Unknown [id number] 1973 Unknown [id number] 1973 Unknown [id number] 1973 Unknown [id number] 1973 Unknown [id number] 1973 Unknown [id number] Unknown [id number] Unknown [id number] Unknown [id number] Social History Date Type Detail Facility Start: 10-05-2018 End: 08-12-2023 Heavy tobacco smoker (finding) [facility] Start: 1975 Sex Assigned At Female A [facility] Start: 01-18-2024 End: 11-12-2024 Tobacco smoking status UTIS Smokes tobacco daily [facility] Start: 05-23-1991 History of tobacco use Cigarette Smo ker [facility] Start: 04-29-2021 End: 01-18-2024 Cigarettes smoked current (pack per day) - Reported 1 [facility] Start: 01-18-2024 Tobacco use and exposure Smoke less tobacco non-user [facility] Start: 01-18-2024 Alcoholic beverage intake Life time non-drinker (finding) [facility] Start: 01-14-2020 End: 04-29-2021 Alcohol Use Disorder Identification Test - Consumption [AUDIT-C] [facility] How often to you hav e a drink containing alcohol? Never [facility] Average Number of Drinks Not on file [facility] Start: 1973 Sex assigned at Not on file [facility] Start: 07-18-2019 End: 12-22-2021 Sex Female (finding) [facility] Start: 04-29-2021 Alcoholic beverage intake Ex-drinker (finding) [facility] Tobacco Nicotine Use: 1 pack per day or more. Type: Cigarettes. Number of years: 25. [facility] Start: 12-14-2018 Alcohol Alcohol [facility] Start: 12-14-2018 Lives Lives [facility] Functional Status Date Assessment Result Facility 08-09-2023 Functional Status Independent [facility] 08-09-2023 Functional Status Independent [facility] Mental Status Date Assessment Result Facility 08-09-2023 Mental Status Orientation Oriented x 4 [facility] 08-09-2023 [facility] 10-26-2021 to 09-27-2024 Telephone Encounter - Emperatriz Alexander - 09/27/2024 12:23 PM EDTTelephone Encounter - Emperatriz Alexander - 09/27/2024 12:23 PM EDTTelephone Encounter - Geovanni Zamora DO - 08/17/2024 4:52 PM EDT Note Date & Type Note Facility 09-27-2024 Telephone encounter Note Called patient made apt [facility] 09-27-2024 Miscellaneous Notes Called patient made apt documented in this encounter [facility] 09-12-2024 Note . MICRO - Microbiology PROCEDURE: Blood Culture (bacterial) [*1] SOURCE: Blood BODY SITE: COLLECTED DATE/TIME: 09/06/2024 21:57 EDT RECEIVED DATE/TIME: 09/07/2024 14:41 EDT START DATE/TIME: 09/07/2024 14:42 EDT FREE TEXT SOURCE: FINAL REPORTS Final Report [] Verified Date/Time/Personnel: 09/12/2024 14:59 EDT Blood Culture: No Growth at 5 days. PRELIMINARY REPORTS Preliminary Report [] Verified Date/Time/Personnel: 09/07/2024 15:59 EDT Culture has been received in lab and is no growth to date. Routine cultures are held for 5 days. Performing Locations *1: This test was performed at: [address], [address] [place] [address] 09-12-2024 Note . MICRO - Microbiology PROCEDURE: Blood Culture (bacterial) [*1] SOURCE: Blood BODY SITE: COLLECTED DATE/TIME: 09/06/2024 21:57 EDT RECEIVED DATE/TIME: 09/07/2024 14:41 EDT START DATE/TIME: 09/07/2024 14:42 EDT FREE TEXT SOURCE: FINAL REPORTS Final Report [] Verified Date/Time/Personnel: 09/12/2024 14:59 EDT Blood Culture: No Growth at 5 days. PRELIMINARY REPORTS Preliminary Report [] Verified Date/Time/Personnel: 09/07/2024 15:59 EDT Culture has been received in lab and is no growth to date. Routine cultures are held for 5 days. Performing Locations *1: This test was performed at: [address], [address] [place] [address] 08-20-2024 Telephone encounter Note Left detailed message on patient's identified VM. Patient to contact office for questions. Romelia Tejeda LPN [facility] 08-20-2024 Miscellaneous Notes Left detailed message on patient's identified VM. Patient to contact office for questions. Romelia Tejeda LPN Can let her know the MRI of the thoracic spine showed no evidence of cancer and no significant degenerative changes. Geovanni Zamora DO documented in this encounter [facility] 08-17-2024 Telephone encounter Note Can let her know the MRI of the thoracic spine showed no evidence of cancer and no significant degenerative changes. Geovanni Zamora DO [facility] Work Phone: 05-28-2024 Note . MICRO - Microbiology PROCEDURE: Urine Culture [*1] SOURCE: Urine BODY SITE: COLLECTED DATE/TIME: 05/25/2024 16:17 EST RECEIVED DATE/TIME: 05/26/2024 16:34 EST START DATE/TIME: 05/26/2024 16:34 EST FREE TEXT SOURCE: FINAL REPORTS Final Report [] Verified Date/Time/Personnel: 05/28/2024 08:21 EST 10,000 - 50,000 cfu/ml Mixed growth consistent with normal urogenital mynra. PRELIMINARY REPORTS Preliminary Report [] Verified Date/Time/Personnel: 05/27/2024 09:25 EST No growth to date Performing Locations *1: This test was performed at: [facility], [address] [place] [address], [id number] , [facility] 02-29-2024 History of Present illness Narrative Radiology Service Progress Note DATE OF SERVICE: February 29, 2024 TIME: 3:12 PM PATIENT IDENTITY VERIFICATION COMPLETED USING TWO (2) STANDARD IDENTIFIERS: Name and Date of confirmed by patient verbally. FALL SCREENING: Has the patient had 2 falls in the last year or 1 fall with injury or currently using an Ambulatory Assistive Device (Walker, Cane, Wheelchair, Crutches, etc.)? No PATIENT GENDER DATA: Female. status: : No status: NO. PATIENT RELEVANT IMPLANT DATA REVIEWED: Yes PATIENT PRESENTS WITH AN IMPLANTABLE OR ATTACHED SOFTWARE VALIDATION TECHNICIAN: No ALLERGIES: Reviewed and unchanged CONTRAST ALLERGY: NO. EXAM: MRI - CONTRAST TYPE: GROUP II PERIPHERAL IV DATA: Ambulatory: A peripheral IV was started in the Right antecubital site with a Angio cath: 22 gauge. RADIOLOGY DEPARTMENT: MR; Exam(s) Completed: Spine: Thoracic spine SIGNATURE: KERRI Jean) PATIENT NAME: Lisbeth Kee DATE: February 29, 2024 TIME: 3:12 PM documented in this encounter [facility] 02-29-2024 Miscellaneous Notes Can let her know the MRI of the thoracic spine was normal. documented in this encounter [facility] 02-29-2024 Note HNO ID: [id number] Author: LYNN CLAYTON RT (R) Service: ? Author Type: Technologist Type: Progress Notes Filed: 02/29/2024 15:12 Note Text: Radiology Service Progress Note DATE OF SERVICE: February 29, 2024 TIME: 3:12 PM PATIENT IDENTITY VERIFICATION COMPLETED USING TWO (2) STANDARD IDENTIFIERS: Name and Date of confirmed by patient verbally. FALL SCREENING: Has the patient had 2 falls in the last year or 1 fall with injury or currently using an Ambulatory Assistive Device (Walker, Cane, Wheelchair, Crutches, etc.)? No PATIENT GENDER DATA: Female. status: : No status: NO. PATIENT RELEVANT IMPLANT DATA REVIEWED: Yes PATIENT PRESENTS WITH AN IMPLANTABLE OR ATTACHED SOFTWARE VALIDATION TECHNICIAN: No ALLERGIES: Reviewed and unchanged CONTRAST ALLERGY: NO. EXAM: MRI - CONTRAST TYPE: GROUP II PERIPHERAL IV DATA: Ambulatory: A peripheral IV was started in the Right antecubital site with a Angio cath: 22 gauge. RADIOLOGY DEPARTMENT: MR; Exam(s) Completed: Spine: Thoracic spine SIGNATURE: Lnyn Clayton, RT(R) PATIENT NAME: Lisbeth Kee DATE: February 29, 2024 TIME: 3:12 PM [facility] 02-29-2024 Progress note Formatting of t his note might be different from the original. Can let her know the MRI of the thoracic spine was normal. [facility] Work Phone: 01-30-2024 Telephone encounter Note Spoke with patient and scheduled first available due to patients work schedule 02/28 @ 3 Ruma rBo [facility] 01-30-2024 Miscellaneous Notes Spoke with patient and scheduled first available due to patients work schedule 02/28 @ 3 Ruma Bro 1st attempt. Message left for patient to contact office and schedule MRI. Patient notified, please assist with scheduling. Leda Vegas LPN Thank you. Order filed. Called patient, no answer, no VM. Leda Vegas LPN Can let her know the x-rays of the upper back showed no obvious evidence of cancer. Please obtain MRI thoracic spine with and without contrast. Please pend order. I spoke with patient and she didn't want to come downtown for psychiatry. Was going to try to find someone closer. Declined scheduling at this time. Thank you for providing a referral to [facility]. The patient declined an appointment. Please let us know if we can assist in the future. Chilango Aaron documented in this encounter [facility] 01-27-2024 Telephone encounter Note 1st attempt. Message left for patient to contact office and schedule MRI. [facility] Work Phone: 01-26-2024 Telephone encounter Note Patient notified, please assist with scheduling. Leda Vegas LPN [facility] 01-26-2024 Telephone encounter Note Thank you. Order filed. [facility] 01-26-2024 Telephone encounter Note Called patient, no answer, no VM. Leda Vegas LPN [facility] 01-25-2024 Telephone encounter Note Can let her know the x-rays of the upper back showed no obvious evidence of cancer. Please obtain MRI thoracic spine with and without contrast. Please pend order. [facility] 01-19-2024 Telephone encounter Note I spoke with patient and she didn't want to come downtown for psychiatry. Was going to try to find someone closer. Declined scheduling at this time. Thank you for providing a referral to [facility]. The patient declined an appointment. Please let us know if we can assist in the future. Chilango Ady [facility] 01-18-2024 History of Present illness Narrative Radiology Service Progress Note PATIENT NAME: Lisbeth Kee DATE OF SERVICE: January 18, 2024 TIME: 2:14 PM PATIENT IDENTITY VERIFICATION COMPLETED USING TWO (2) IDENTIFIERS: Name and Date of confirmed by patient verbally. FALL SCREENING: Has the patient had 2 falls in the last year or 1 fall with injury or currently using an Ambulatory Assistive Device (Walker, Cane, Wheelchair, Crutches, etc.)? No PATIENT GENDER DATA: Female. status: : No status: NO. PATIENT RELEVANT IMPLANT DATA REVIEWED: Yes PATIENT PRESENTS WITH AN IMPLANTABLE OR ATTACHED SOFTWARE VALIDATION TECHNICIAN: No RADIOLOGY DEPARTMENT: General X-ray: Exam(s) Completed: Spine X-Ray(s): Thoracic PERIPHERAL IV DATA: Not applicable SIGNED BY: RT Kalli(Mariah) January 18, 2024 2:14 PM documented in this encounter [facility] 01-18-2024 Note HNO ID: [id number] Author: MIRELLA GONZALEZ RT(Mariah) Service: ? Author Type: Hvac Installer Type: Progress Notes Filed: 01/18/2024 14:23 Note Text: Radiology Service Progress Note PATIENT NAME: Lisbeth Kee DATE OF SERVICE: January 18, 2024 TIME: 2:14 PM PATIENT IDENTITY VERIFICATION COMPLETED USING TWO (2) IDENTIFIERS: Name and Date of confirmed by patient verbally. FALL SCREENING: Has the patient had 2 falls in the last year or 1 fall with injury or currently using an Ambulatory Assistive Device (Walker, Cane, Wheelchair, Crutches, etc.)? No PATIENT GENDER DATA: Female. status: : No status: NO. PATIENT RELEVANT IMPLANT DATA REVIEWED: Yes PATIENT PRESENTS WITH AN IMPLANTABLE OR ATTACHED SOFTWARE VALIDATION TECHNICIAN: No RADIOLOGY DEPARTMENT: General X-ray: Exam(s) Completed: Spine X-Ray(s): Thoracic PERIPHERAL IV DATA: Not applicable SIGNED BY: RT Kalli(R) January 18, 2024 2:14 PM [facility] 01-18-2024 History of Present illness Narrative Elements copied from Dr. aNvas's note dated 01/23/2019 have been reviewed and updated where appropriate and all reflect current assessment and medical decision making during today's encounter. HPI: The patient is a 48-year-old female with a past medical history significant for rheumatoid arthritis and breast cancer. Diagnosis: Stage IC Breast Cancer pTc pN0 (i) ER + PgR - HER-2 not overexpressed (Left upper-outer quadrant). Presented with an abnormal mammogram 2 years ago. She had a biopsy which was negative and did not follow-up until earlier this year when she felt a lump on her left breast. She had a history of abnormal menstrual bleeding last year along with polyarthritis. She had a total abdominal hysterectomy in January 2018. Most recently she also saw her debt management counselor and she was started on Plaquenil for treatment of rheumatoid arthritis. She saw Dr. Blanco for abnormal mammogram which showed: 1.7 cm. left breast mass at 1 o'clock medium depth at 5 centimeter from nipple with irregular solid mass appearance suspicious for malignancy. BI-RADS 4 She had a stereotactic guided needle biopsy performed on 09/27/2018 and pathology was positive for invasive moderately differentiated ductal carcinoma nuclear grade 2, ER positive MD negative HER-2 equivocal +2 by IHC. She underwent lumpectomy and sentinel lymph node biopsy on 10/09/2018. Patient did well with her surgery with minimal complication some numbness on her left arm after surgery. No lymphedema. PATHOLOGY: Left sentinel lymph node biopsy; one lymph node negative for carcinoma Invasive moderately differentiated ductal carcinoma. Maximum diameter 1.9 cm Margin negative 0.15 cm closest posterior margins. Angiolymphatic invasion identified. Overall grade 2/3 Ductal carcinoma in situ 0.3 cm closest inferior margin. HER-2 by FISH 1.5 negative. Oncotype RS 30. 19% risk of recurrence with use of AI or tamoxifen. No family history of ovarian or breast cancer. MGM--Colon cancer. MGF--Colon cancer, but of throat cancer. Daughter--Diagnosed age 10 low grade astrocytoma. Now age 21. She had a severe allergic reaction after first dose of chemotherapy. She also noticed stomatitis with thrush and vaginal yeast infection. She also had grade 4 neutropenia after first cycle of chemotherapy. Previous therapy: 1) TC 1 cycle. 2) AC x4 cycles. 3) Adjuvant radiation 02/2019 through 04/25/2019. 4) Anastrozole. Self discontinued spring 2019. Declined further therapy. Referred back for leukopenia. Has diagnosis of Sjogren's and fibromyalgia. Has not seen her debt management counselor in [place] in several years. She does not wish to go back. Recent CBC showing ANC 1400. Hospitalized in July with upper chest pain. No particular diagnosis. Complains of fatigue and anxiety. Pain in "any joint." Worst pain is upper thoracic paraspinal. Has been going on several years. Extreme anxiety. I have a hard time sleeping at night. Feels like I'm on a roller coaster throwing up butterflies." Has been treated with antidepressants in the past. Those were started when her daughter was first diagnosed with astrocytoma. She has significant side effects from antidepressants. 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 Recent tomographic screening mammogram 10/2023. BIRADS-2. Annual follow up recommended. PAST MEDICAL HISTORY No date: Anxiety No date: Hx of breast cancer No date: Leukopenia No date: Rheumatoid arthritis (HCC) No date: Sjoegren syndrome (HCC) PAST SURGICAL HISTORY No date: APPENDECTOMY No date: BREAST BIOPSY HX; Left No date: BREAST LUMPECTOMY HX; Left No date: HYSTERECTOMY HX No date: TONSILLECTOMY AND ADENOIDECTOMY HX No date: TUBAL LIGATION HX ALLERGIES Allergen Reactions Docetaxel Hives Amoxicillin Itching Current Outpatient Medications Medication Sig cyanocobalamin (VITAMIN B-12) 500 mcg tablet Take 1 tablet by mouth once daily. traZODone (DESYREL) 100 mg tablet Take 150 mg by mouth daily at bedtime. ibuprofen (MOTRIN) 200 mg tablet Take 400 mg by mouth every 8 hours as needed. acetaminophen (TYLENOL EXTRA STRENGTH) 500 mg tablet Take 1,000 mg by mouth every 8 hours as needed. acetaminophen (TYLENOL ARTHRITIS PAIN) 650 mg CR tablet Take 650 mg by mouth every 8 hours as needed. No current facility-administered medications for this visit. Social History Tobacco Use Smoking status: Every Day Current packs/day: 1.00 Average packs/day: 1 pack/day for 30.0 years (30.0 ttl pk-yrs) Types: Cigarettes Smokeless tobacco: Never Vaping Use Vaping status: Never Used Substance Use Topics Alcohol use: Never Drug use: Never Family History Problem Relation Age of Onset Diabetes Mother COPD Mother Anxiety disorder Mother Hyperlipidemia Father Heart disease Father No Known Problems Brother Cancer Maternal Grandmother colon Cancer Maternal Grandfather esophageal, colon Heart disease Paternal Grandmother [place] ROS: Review of systems is otherwise negative. PHYSICAL EXAM: Vitals: Blood pressure 144/94, pulse 85, temperature 36.9 C (98.5 F), temperature source Temporal, height 175.3 cm (5' 9"), weight 65.8 kg (145 lb), SpO2 99%. Well-appearing and in no acute distress. EYES: Sclerae are anicteric bilaterally. LYMPHATIC: There is no palpable cervical, supraclavicular, axillary or inguinal adenopathy. RESPIRATORY: Inspiratory breath sounds are of normal intensity in all tabares. No rales, wheezes or rhonchi. CARDIOVASCULAR: Rhythm is regular. No murmur. BREAST: Romelia Tejeda LPN chaperoned. left breast scar upper outer quadrant. No skin nodules. ABDOMEN: The abdomen is nondistended. No splenomegaly or hepatomegaly. No tenderness. Extremities: No swelling or edema. SKIN: No jaundice. ASSESSMENT/PLAN: (C50.412, Z17.0) Malignant neoplasm of upper-outer quadrant of left breast in female, estrogen receptor positive (HCC) (primary encounter diagnosis) Assessment: -pT1c pN0 M0 G2 ER positive, MD negative, HER2 negative pathologic stage I breast cancer. -Oncotype Dx test suggested a roughly 1 in 5 chance of recurrence over a period of 9 years if she were to have completed a course of aromatase inhibitor therapy or tamoxifen. She had at best about 6 months worth of anastrozole. Therefore, risk the soon to be higher than 19%. -Not previously had genetic testing. -Does not appear to have formal diagnosis of RA but has serologic pattern of Sjogren's and fibromyalgia according to her debt management counselor. -Chronic upper thoracic back pain and widespread joint pain. -Mild neutropenia. No splenomegaly. No outside lab work findings to suggest Felty syndrome. -Smoker. -Understandably extremely anxious. Plan: -Genetic counseling. -X-ray thoracic spine. -Potential MRI and/or PET based on x-ray results. -CBC with differential today. -CMP today with particular attention to alkaline phosphatase. -Referral to psychology and psychiatry services via main campus. -OV in about 6 months. I spent a total of 65 minutes on the date of the service which included preparing to see the patient, [id number] patient care, completing clinical documentation, obtaining and/or reviewing separately obtained history, performing a medically appropriate examination, counseling and educating the patient/family/caregiver, ordering medications, tests, or procedures, communicating with other HCPs (not separately reported), and communicating results to the patient/family/caregiver. Geovanni Zamora DO documented in this encounter [facility] 01-18-2024 Note HNO ID: [id number] Author: GEOVANNI ZAMORA DO Service: ? Author Type: Physician Type: Progress Notes Filed: 01/18/2024 13:57 Note Text: Elements copied from Dr. Navas's note dated 01/23/2019 have been reviewed and updated where appropriate and all reflect current assessment and medical decision making during today's encounter. HPI: The patient is a 48-year-old female with a past medical history significant for rheumatoid arthritis and breast cancer. Diagnosis: Stage IC Breast Cancer pTc pN0 (i) ER + PgR - HER-2 not overexpressed (Left upper-outer quadrant). Presented with an abnormal mammogram 2 years ago. She had a biopsy which was negative and did not follow-up until earlier this year when she felt a lump on her left breast. She had a history of abnormal menstrual bleeding last year along with polyarthritis. She had a total abdominal hysterectomy in January 2018. Most recently she also saw her debt management counselor and she was started on Plaquenil for treatment of rheumatoid arthritis. She saw Dr. Blanco for abnormal mammogram which showed: 1.7 cm. left breast mass at 1 o'clock medium depth at 5 centimeter from nipple with irregular solid mass appearance suspicious for malignancy. BI-RADS 4 She had a stereotactic guided needle biopsy performed on 09/27/2018 and pathology was positive for invasive moderately differentiated ductal carcinoma nuclear grade 2, ER positive MD negative HER-2 equivocal +2 by IHC. She underwent lumpectomy and sentinel lymph node biopsy on 10/09/2018. Patient did well with her surgery with minimal complication some numbness on her left arm after surgery. No lymphedema. PATHOLOGY: Left sentinel lymph node biopsy; one lymph node negative for carcinoma Invasive moderately differentiated ductal carcinoma. Maximum diameter 1.9 cm Margin negative 0.15 cm closest posterior margins. Angiolymphatic invasion identified. Overall grade 2/3 Ductal carcinoma in situ 0.3 cm closest inferior margin. HER-2 by FISH 1.5 negative. Oncotype RS 30. 19% risk of recurrence with use of AI or tamoxifen. No family history of ovarian or breast cancer. MGM--Colon cancer. MGF--Colon cancer, but of throat cancer. Daughter--Diagnosed age 10 low grade astrocytoma. Now age 21. She had a severe allergic reaction after first dose of chemotherapy. She also noticed stomatitis with thrush and vaginal yeast infection. She also had grade 4 neutropenia after first cycle of chemotherapy. Previous therapy: 1) TC 1 cycle. 2) AC x4 cycles. 3) Adjuvant radiation 02/2019 through 04/25/2019. 4) Anastrozole. Self discontinued spring 2019. Declined further therapy. Referred back for leukopenia. Has diagnosis of Sjogren's and fibromyalgia. Has not seen her debt management counselor in [place] in several years. She does not wish to go back. Recent CBC showing ANC 1400. Hospitalized in July with upper chest pain. No particular diagnosis. Complains of fatigue and anxiety. Pain in "any joint." Worst pain is upper thoracic paraspinal. Has been going on several years. Extreme anxiety. I have a hard time sleeping at night. Feels like I'm on a roller coaster throwing up butterflies." Has been treated with antidepressants in the past. Those were started when her daughter was first diagnosed with astrocytoma. She has significant side effects from antidepressants. 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 Recent tomographic screening mammogram 10/2023. BIRADS-2. Annual follow up recommended. PAST MEDICAL HISTORY No date: Anxiety No date: Hx of breast cancer No date: Leukopenia No date: Rheumatoid arthritis (HCC) No date: Sjoegren syndrome (HCC) PAST SURGICAL HISTORY No date: APPENDECTOMY No date: BREAST BIOPSY HX; Left No date: BREAST LUMPECTOMY HX; Left No date: HYSTERECTOMY HX No date: TONSILLECTOMY AND ADENOIDECTOMY HX No date: TUBAL LIGATION HX ALLERGIES Allergen Reactions Docetaxel Hives Amoxicillin Itching Current Outpatient Medications Medication Sig cyanocobalamin (VITAMIN B-12) 500 mcg tablet Take 1 tablet by mouth once daily. traZODone (DESYREL) 100 mg tablet Take 150 mg by mouth daily at bedtime. ibuprofen (MOTRIN) 200 mg tablet Take 400 mg by mouth every 8 hours as needed. acetaminophen (TYLENOL EXTRA STRENGTH) 500 mg tablet Take 1,000 mg by mouth every 8 hours as needed. acetaminophen (TYLENOL ARTHRITIS PAIN) 650 mg CR tablet Take 650 mg by mouth every 8 hours as needed. No current facility-administered medications for this visit. Social History Tobacco Use Smoking status: Every Day Current packs/day: 1.00 Average packs/day: 1 pack/day for 30.0 years (30.0 ttl pk-yrs) Types: Cigarettes Smokeless tobacco: Never Vaping Use Vaping status: Never Used Substance Use Topics Alcohol use: Never Drug use: Never Family History Problem Relation Age of Onset Diabetes Mother COPD Mother Anxiety disorder Mother Hyperlipidemia Father Heart di (more content not included)... [facility] 10-21-2023 Evaluation + Plan note Future Scheduled TestsMA Mammo Screening Bilateral w/ Js 10/21/23 [facility] 08-10-2023 Hospital Discharge instructions Patient Education 08/09/2023 22:18:23 Back Care Tips Back Care Tips Caring for your back These are things you can do to prevent a recurrence of acute back pain and to reduce symptoms from chronic back pain: Maintain a healthy weight. If you are overweight, losing weight will help most types of back pain. Exercise is an important part of recovery from most types of back pain. The muscles behind and in front of the spine support the back. This means strengthening both the back muscles and the abdominal muscles will provide better support for your spine. Swimming and brisk walking are good overall exercises to improve your fitness level. Practice safe lifting methods (below). Practice good posture when sitting, standing and walking. Avoid prolonged sitting. This puts more stress on the lower back than standing or walking. Wear quality shoes with sufficient arch support. Foot and ankle alignment can affect back symptoms. Women should avoid wearing high heels. Therapeutic massage can help relax the back muscles without stretching them. During the first 24 to 72 hours after an acute injury or flare-up of chronic back pain, apply an ice pack to the painful area for 20 minutes and then remove it for 20 minutes, over a period of 60 to 90 minutes, or several times a day. As a safety precaution, do not use a heating pad at bedtime. Sleeping on a heating pad can lead to skin wei or tissue damage. You can alternate ice and heat therapies. Medicines Talk to your healthcare provider before using medicines, especially if you have other medical problems or are taking other medicines. You may use acetaminophen or ibuprofen to control pain, unless your healthcare provider prescribed other pain medicine. If you have chronic conditions like diabetes, liver or kidney disease, stomach ulcers, or gastrointestinal bleeding, or are taking blood thinners, talk with your healthcare provider before taking any medicines. Be careful if you are given prescription pain medicines, narcotics, or medicine for muscle spasm. They can cause drowsiness, affect your coordination, reflexes, and judgment. Do not drive or operate heavy machinery while taking these types of medicines. Take prescription pain medicine only as prescribed by your healthcare provider. Lumbar stretch Here is a simple stretching exercise that will help relax muscle spasm and keep your back more limber. If exercise makes your back pain worse, don t do it. Lie on your back with your knees bent and both feet on the ground. Slowly raise your left knee to your chest as you flatten your lower back against the floor. Hold for 5 seconds. Relax and repeat the exercise with your right knee. Do 10 of these exercises for each leg. Safe lifting method Don t bend over at the waist to lift an object off the floor. Instead, bend your knees and hips in a squat. Keep your back and head upright Hold the object close to your body, directly in front of you. Straighten your legs to lift the object. Lower the object to the floor in the reverse fashion. If you must slide something across the floor, push it. Posture tips Sitting Sit in chairs with straight backs or low-back support. Keep your knees lower than your hips, with your feet flat on the floor. When driving, sit up straight. Adjust the seat forward so you are not leaning toward the steering wheel. A small pillow or rolled towel behind your lower back may help if you are driving long distances. Standing When standing for long periods, shift most of your weight to one leg at a time. Alternate legs every few minutes. Sleeping The best way to sleep is on your side with your knees bent. Put a low pillow under your head to support your neck in a neutral spine position. Avoid thick pillows that bend your neck to one side. Put a pillow between your legs to further relax your lower back. If you sleep on your back, put pillows under your knees to support your legs in a slightly flexed position. Use a firm mattress. If your mattress sags, replace it, or use a 1/2-inch plywood board under the mattress to add support. Follow-up care Follow up with your healthcare provider, or as advised. If X-rays, a CT scan or an MRI scan were taken, they will be reviewed by a radiologist. You will be notified of any new findings that may affect your care. Call 911 Call 911 if any of the following occur: Trouble breathing Confusion Very drowsy Fainting or loss of consciousness Rapid or very slow heart rate Loss of bowel or bladder control When to seek medical advice Call your healthcare provider right away if any of the following occur: Pain becomes worse or spreads to your arms or legs Weakness or numbness in one or both arms or legs Numbness in the groin area 1806-1433 [employer]. [address] [place] [address]. All rights reserved. This information is not intended as a substitute for professional medical care. Always follow your healthcare professional's instructions. Follow Up Care 08/09/2023 20:39:02 With:[facility] Address: When:2-4 days With:EDIL NICK DO Address: [address] [facility] [place] [address]- [phone] When:2-4 days [facility] 08-09-2023 Note Discharge Instructions Thank you for allowing [facility] to assist you with your healthcare needs. The following is important discharge information regarding your hospital visit. Diagnosis from Today's Visit Back pain What to Do Next Instructions from Your Care Team No qualifying data available. Post Acute Orders No qualifying data available. You Need to Schedule the Following Appointments Follow Up with [facility] When Within 2-4 days Where: Follow Up with EDIL NICK DO When Within 2-4 days Where: [address] [facility] [place] [address]- [phone] Allergies amoxicillin (hives, itching, sores on tongue) pilocarpine (Cold and clammy skin) Medications Please ask your primary doctor or pharmacist before taking any other medication not listed, including over the counter drugs, herbal medications, vitamins and or supplements as they may interact with your home medications. What How Much When Instructions Last Dose New baclofen (baclofen 20 mg oral tablet) 1 tab(s) by mouth Three (3) times a day Duration: 5 Days Printed Prescription New lidocaine topical (Lidoderm 5% topical patch) 1 patch(es) Topical Every day Duration: 7 Days Printed Prescription Unchanged acetaminophen (Tylenol) by mouth Unchanged cyanocobalamin (Vitamin B12 500 mcg oral tablet) 1 tab(s) by mouth Every day Unchanged diphenhydrAMINE (Magic mouthwash (Pegaupwm-Owqhyl-Ygeeuuhsk-Mycos tatin)) 2 teaspoonful(s) by mouth Four (4) times a day as needed for swish and swallow for mouth sores Unchanged traZODone (traZODone 100 mg oral tablet) 1.5 tab(s) by mouth Daily at bedtime Please take this list to your next doctor s visit. Bring all medications you take, including over the counter medications, herbals and other supplements with you to your doctor s visit. Patients and families are reminded to discard old lists and to update any records with all medication providers or retail pharmacies. Education Materials Back Care Tips Caring for your back These are things you can do to prevent a recurrence of acute back pain and to reduce symptoms from chronic back pain: Maintain a healthy weight. If you are overweight, losing weight will help most types of back pain. Exercise is an important part of recovery from most types of back pain. The muscles behind and in front of the spine support the back. This means strengthening both the back muscles and the abdominal muscles will provide better support for your spine. Swimming and brisk walking are good overall exercises to improve your fitness level. Practice safe lifting methods (below). Practice good posture when sitting, standing and walking. Avoid prolonged sitting. This puts more stress on the lower back than standing or walking. Wear quality shoes with sufficient arch support. Foot and ankle alignment can affect back symptoms. Women should avoid wearing high heels. Therapeutic massage can help relax the back muscles without stretching them. During the first 24 to 72 hours after an acute injury or flare-up of chronic back pain, apply an ice pack to the painful area for 20 minutes and then remove it for 20 minutes, over a period of 60 to 90 minutes, or several times a day. As a safety precaution, do not use a heating pad at bedtime. Sleeping on a heating pad can lead to skin wei or tissue damage. You can alternate ice and heat therapies. Medicines Talk to your healthcare provider before using medicines, especially if you have other medical problems or are taking other medicines. You may use acetaminophen or ibuprofen to control pain, unless your healthcare provider prescribed other pain medicine. If you have chronic conditions like diabetes, liver or kidney disease, stomach ulcers, or gastrointestinal bleeding, or are taking blood thinners, talk with your healthcare provider before taking any medicines. Be careful if you are given prescription pain medicines, narcotics, or medicine for muscle spasm. They can cause drowsiness, affect your coordination, reflexes, and judgment. Do not drive or operate heavy machinery while taking these types of medicines. Take prescription pain medicine only as prescribed by your healthcare provider. Lumbar stretch Here is a simple stretching exercise that will help relax muscle spasm and keep your back more limber. If exercise makes your back pain worse, don t do it. Lie on your back with your knees bent and both feet on the ground. Slowly raise your left knee to your chest as you flatten your lower back against the floor. Hold for 5 seconds. Relax and repeat the exercise with your right knee. Do 10 of these exercises for each leg. Safe lifting method Don t bend over at the waist to lift an object off the floor. Instead, bend your knees and hips in a squat. Keep your back and head upright Hold the object close to your body, directly in front of you. Straighten your legs to lift the object. Lower the object to the floor in the reverse fashion. If you must slide something across the floor, push it. Posture tips Sitting Sit in chairs with straight backs or low-back support. Keep your knees lower than your hips, with your feet flat on the floor. When driving, sit up straight. Adjust the seat forward so you are not leaning toward the steering wheel. A small pillow or rolled towel behind your lower back may help if you are driving long distances. Standing When standing for long periods, shift most of your weight to one leg at a time. Alternate legs every few minutes. Sleeping The best way to sleep is on your side with your knees bent. Put a low pillow under your head to support your neck in a neutral spine position. Avoid thick pillows that bend your neck to one side. Put a pillow between your legs to further relax your lower back. If you sleep on your back, put pillows under your knees to support your legs in a slightly flexed position. Use a firm mattress. If your mattress sags, replace it, or use a 1/2-inch plywood board under the mattress to add support. Follow-up care Follow up with your healthcare provider, or as advised. If X-rays, a CT scan or an MRI scan were taken, they will be reviewed by a radiologist. You will be notified of any new findings that may affect your care. Call 911 Call 911 if any of the following occur: Trouble breathing Confusion Very drowsy Fainting or loss of consciousness Rapid or very slow heart rate Loss of bowel or bladder control When to seek medical advice Call your healthcare provider right away if any of the following occur: Pain becomes worse or spreads to your arms or legs Weakness or numbness in one or both arms or legs Numbness in the groin area 7428-5489 [employer]. [address] [place] [address]. All rights reserved. This information is not intended as a substitute for professional medical care. Always follow your healthcare professional's instructions. Additional Information VACCINATE! IT SAVES LIVES! Members of the community who have not yet received the COVID-19 vaccine and would like to receive it can visit one of [facility] vaccine clinics. There are many vaccine clinic locations within the [facility]. For locations and available times, please visit [email or web address].[place]. [email or web address] It is important to note that some COVID mobile vaccine clinics are held outdoors and may be canceled in rainy or stormy conditions. To learn more about pediatric vaccinations (ages 5-11), we invite you to visit the [facility] webpage. https://www.[facility].org/p ages/3959-Zdfcr-Wmzxoyovadf-Freq xwdmtp-Pculj-Xsqjnpgvx.html To learn more about the COVID-19 vaccine, we invite you to visit the CDC website for a list of frequently asked questions. https://www.cdc.gov/coronavirus/ 2019-ncov/vaccines/faq.html [employer] Patient Portal Access Instructions: Stay connected with your healthcare team and access your personal medical information anytime with the [employer] Patient Portal. If you would like a full copy of your medical records please contact the [facility] Medical Records Department Tuesday through Tuesday between 8a.m. and 4:30p.m. Please follow the directions below to access the portal: 1.Access the email account you provided upon registration to the [facility].2.Look for an invitation email from [facility].3.Open the email and access the invitation link: Accept Invitation to [employer]4.Fill in the required tabares to create your account. Sign into [email or web address] with your username and password that you created in the above steps to stay up to date. You can then view a summary of results, a summary of your visits, and the ability to download your summaries to your computer or send the information securely to a physician. Remember that your healthcare information is confidential, so carefully consider who you will allow to register on the [employer] Patient Portal for access to your information. You can also access the [employer] Patient Portal on the [employer] mani. Simply click on "Health Records" under "Health Data" and then click on the [employer] logo. HOW TO SAFELY DISPOSE OF PRESCRIPTION MEDICATIONS Please use one of the following methods to safely dispose of your unused medications. 1.Use a drug disposal kit: the drug disposal pouch allows you to safely discard your old and unused drugs. Ask your nurse to give you one when you are discharged.2.Visit a local take-back location: Many local pharmacies and police departments have programs that collect old and unwanted prescription drugs. Call your local pharmacy or go to http://Applifier.Jaman/9O8Ef3l to find one close to you.3.Make use of household items: Use cat litter or old coffee grounds to dispose medications if other options are not available. Mix your drugs with these household products, seal them in an airtight container and throw it into the garbage. Call [facility]: [phone] to be sure your drugs can be disposed of in this way. Some medicines may require a different approach.4.Never flush your medications down the toilet. IF YOU HAVE BEEN PRESCRIBED AN OPIOIDS FOR PAIN If you have been prescribed an opioid (such as hydrocodone, oxycodone or morphine), it is critical to understand the possible side effects and risks of opioid pain medications. Even when taken as directed, opioids can have several side effects including: Tolerance, meaning you might need to take more of a medication for the same pain relief. Nausea, vomiting and/or constipation. Sleepiness, dizziness, dry mouth, confusion, depression or itching. Physical dependence, meaning you have withdrawal symptoms when a medication is stopped ? this can develop within a few days. KNOW YOUR RESPONSIBILITIES It is important to know exactly how much and how often to take the opioid pain medications you are prescribed. Never take opioids in higher amounts or more often than prescribed. Do not combine opioids with alcohol or other drugs that cause drowsiness, such as benzodiazepines, also known as benzos, including diazepam and alprazolam, muscle relaxants or sleep aids. Never sell or share prescription opioids. This is illegal. Store opioids in a secure place and out of reach of others (including children, family, friends and visitors). The last page(s) of this document has been signed and retained as a CHART COPY Signatures Patient Education Materials Back Care Tips Medication Leaflets My discharge plan and instructions have been reviewed and explained to me and CHILANGO Whitney KRISTEN J understand my current condition and have read and understand these discharge instructions. I have received a written copy of the plan/instructions. If I have questions, I am aware that I should contact my doctor. 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 There are no significant degenerative changes. No evidence of fracture. Pedicles are symmetric and intact. Visualized lungs are clear. IMPRESSION: No acute abnormality of the thoracic spine Interpreted by: Loco Garcia Preliminary Report By: Loco Garcia Electronically signed By Loco Garcia Dictated Date: 08/09/2023 9:39:09 PM Prelim Date: 08/09/2023 9:39:26 PM Sign Date: 08/09/2023 9:39:26 PM Ordering Provider: NICOLE ALBERTO [facility] 08-09-2023 Note ORIGINAL EXAMINATION: ONE XRAY VIEW OF THE CHEST 08/09/2023 9:28 pm COMPARISON: 05/08/2019 HISTORY: ORDERING SYSTEM PROVIDED HISTORY: Reason for Exam: chest pain FINDINGS: The cardiomediastinal silhouette appears normal. There is no focal consolidation. There is no pulmonary edema. There is no evidence of pleural effusion. There is no evidence of pneumothorax. No fracture is identified. IMPRESSION: No acute abnormality is identified. Interpreted by: Loco Garcia Preliminary Report By: Loco Garcia Electronically signed By Loco Garcia Dictated Date: 08/09/2023 9:38:39 PM Prelim Date: 08/09/2023 9:38:59 PM Sign Date: 08/09/2023 9:38:59 PM Ordering Provider: NICOLE ALBERTO [facility] 08-09-2023 Note Sinus rhythm Ventricular premature complex Probable left atrial enlargement Anteroseptal infarct, age indeterminate Electronic Signature: NICOLE ALBERTO DO 08/09/2023 21:04:17 [facility] 02-25-2023 Note . MICRO - Microbiology PROCEDURE: Throat Culture [*1] SOURCE: Throat BODY SITE: COLLECTED DATE/TIME: 02/22/2023 16:39 EDT RECEIVED DATE/TIME: 02/23/2023 14:35 EDT START DATE/TIME: 02/23/2023 14:35 EDT FREE TEXT SOURCE: FINAL REPORTS Final Report [] Verified Date/Time/Personnel: 02/25/2023 07:16 EDT Normal throat myrna present Sensitivity Testing: Not Indicated PRELIMINARY REPORTS Preliminary Report [] Verified Date/Time/Personnel: 02/24/2023 11:44 EDT Negative for upper respiratory pathogens at 24 hours. Performing Locations *1: This test was performed at: [address], [id number] , [facility] ([place]) 12-09-2022 Note . MICRO - Microbiology PROCEDURE: Urine Culture [*1] SOURCE: Urine, Clean Catch BODY SITE: COLLECTED DATE/TIME: 12/07/2022 16:25 EDT RECEIVED DATE/TIME: 12/08/2022 18:57 EDT START DATE/TIME: 12/08/2022 18:57 EDT FREE TEXT SOURCE: FINAL REPORTS Final Report [] Verified Date/Time/Personnel: 12/09/2022 14:33 EDT 10,000 - 50,000 cfu/ml Multiple bacterial morphotypes present. Probable Contamination. Suggest recollection if clinically indicated. Performing Locations *1: This test was performed at: [address], [address]- , [facility] ([place]) 02-17-2022 Evaluation + Plan note Future Scheduled TestsThyroid Stimulating Hormone 02/17/22Vitamin B12 Level 10/26/21Complete Blood Count 10/26/21Complete Blood Count 02/17/22Lipid Profile 02/17/22Complete Metabolic Panel 02/17/22US Pelvis Non-OB W/Transvaginal 08/18/22 [facility] 10-26-2021 Evaluation + Plan note Future Scheduled TestsVitamin B12 Level 10/26/21Complete Blood Count 10/26/21 [facility] Evaluation + Plan note Future Appointments Appointment Date:08/10/2021 09:10:00 AM Scheduled Provider:SIXTO VACA Location:[facility] Appointment Type:PC OV [facility] Evaluation + Plan note Future Appointments Appointment Date:11/15/2022 01:30:00 PM Scheduled Provider:EDIL NICK DO Location:[facility] Appointment Type:PC OV [facility] Evaluation + Plan note Future Appointments Appointment Date:10/21/2023 10:30:00 AM Scheduled Provider:EDIL NICK DO Location:[facility] Appointment Type:PC [facility] Evaluation + Plan note Future Appointments Appointment Date:10/21/2023 10:00:00 AM Scheduled Provider:RENETTA REYES Location:[facility] Appointment Type:PC [facility] Evaluation + Plan note Future Appointments Appointment Date:11/23/2023 10:00:00 AM Scheduled Provider: Location:[facility] Appointment Type:GI OV Consult [facility] Evaluation + Plan note Future Appointments Appointment Date:11/08/2024 01:30:00 PM Scheduled Provider:YG LAI DO Location:[facility] Appointment Type:OSM POSTAL SUPERINTENDENT Appointment Date:12/26/2024 10:00:00 AM Scheduled Provider:RENETTA REYES Location:[facility] Appointment Type: OV Future Scheduled TestsMA Mammo Screening Bilateral w/ Sj 10/31/24MRI Spine Cervical w/o Contrast 10/03/24 [facility] Evaluation note Diagnosis Malignant neoplasm of upper-outer quadrant of left breast in female, estrogen receptor positive (HCC)- Primary Chronic bilateral thoracic back pain Other neutropenia (HCC) Other neutropenia Anxiety associated with cancer diagnosis (HCC) documented in this encounter [facility] note* Diagnosis Malignant neoplasm of upper-outer quadrant of left breast in female, estrogen receptor positive (HCC) Chronic bilateral thoracic back pain documented in this encounter [facility] note* Diagnosis Chronic bilateral thoracic back pain- Primary Malignant neoplasm of upper-outer quadrant of left breast in female, estrogen receptor positive (HCC) documented in this encounter [facility] note* Diagnosis Chronic bilateral thoracic back pain Malignant neoplasm of upper-outer quadrant of left breast in female, estrogen receptor positive (HCC) documented in this encounter [facility] noteNo assessment information availableSan [facility] Work Phone: Hospital course Narrative No data available for this section [facility] Hospital Discharge instructions No data available for this section [facility] Progress note No data available for this section [facility] Reason for referral (narrative)* Diagnostic Procedure Only (Routine) - Closed Specialty Diagnoses / Procedures Referred By Contac t Referred To Contact XR IMAGING Diagnoses Malignant neoplasm of upper-outer quadrant of left breast in female, estrogen receptor positive (HCC) Chronic bilateral thoracic back pain Procedures XR THORACIC LIMITED 2V AP/LAT RADEX SPINE THORACIC 2 VIEWS Geovanni Zamora DO [address] [place] [address] [place] [address] Referral ID Status Reason Start Date Expiration Date V isits Requested Visits Authorized [id number] Closed Auto-Generate d Referral 01/18/2024 02/16/2025 1 1 [facility] for referral (narrative)No reason for referral information availableSan [facility] Work Phone: Reason for visit Narrative* Diagnostic Procedure Only (Routine) - Closed Specialty Diagnoses / Procedures Referred By Contac t Referred To Contact XR IMAGING Diagnoses Malignant neoplasm of upper-outer quadrant of left breast in female, estrogen receptor positive (HCC) Chronic bilateral thoracic back pain Procedures XR THORACIC LIMITED 2V AP/LAT RADEX SPINE THORACIC 2 VIEWS Geovanni Zamora, DO [address] [place] [address] [place] [address] Referral ID Status Reason Start Date Expiration Date V isits Requested Visits Authorized [id number] Closed Auto-Generate d Referral 01/18/2024 02/16/2025 1 1 [facility] Summary Purpose Family History No Family History Records Found No data available for this section No data available for this section No data available for this section No data available for this section No Family History Records Found No data available for this section No Family History Records FoundNo Family History Records FoundNo Family History Records Found No data available for this section No Family History Records FoundNo Family History Records Found Advance Directives No Advanced Directives Records FoundDocuments on File Type Date Recorded 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 Advance Directive(s) 12/06/2018 11:17 AM Documents on File Type Date Recorded 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 Advance Directive(s) 12/06/2018 11:17 AM Reason for Referral Specialty Diagnoses / Procedures Referred By Contac t Referred To Contact MR IMAGING Diagnoses Chronic bilateral thoracic back pain Malignant neoplasm of upper-outer quadrant of left breast in female, estrogen receptor positive (HCC) Procedures MRI THORACIC SPINE WO/W IVCON MRI SPINAL CANAL THORACIC W/O & W/CONTR MATRL Geovanni Zamora, DO [address] [place] [address] [place] [address] Referral ID Status Reason Start Date Expiration Date Visits Requested Visits Authorized [id number] Pending Review Auto-Generat ed Referral 01/26/2024 02/24/2025 1 1 Specialty Diagnoses / Procedures Referred By Contac t Referred To Contact Diagnoses Malignant neoplasm of upper-outer quadrant of left breast in female, estrogen receptor positive (HCC) Procedures CONSULT TO MEDICAL GENETICS - CANCER MEDICAL GENETICS COUNSELING EACH 30 MINUTES Geovanni Zamora, [address] [place] [address] [address] Referral ID Status Reason Start Date Expiration Date Visits Requested Visits Authorized [id number] Authorized PCP Requested Referral Auto-Generate d Referral 01/18/2024 01/17/2025 1 1 Specialty Diagnoses / Procedures Referred By Contac t Referred To Contact XR IMAGING Diagnoses Malignant neoplasm of upper-outer quadrant of left breast in female, estrogen receptor positive (HCC) Chronic bilateral thoracic back pain Procedures XR THORACIC LIMITED 2V AP/LAT RADEX SPINE THORACIC 2 VIEWS Geovanni Zamora, DO [address] [place] [address] [place] [id number] Referral ID Status Reason Start Date Expiration Date V isits Requested Visits Authorized [id number] Closed Auto-Generate d Referral 01/18/2024 02/16/2025 1 1 Chief Complaint and Reason for Visit Chief Complaint Admit Date CERVCIAL SPINE November 12, 2024 12:4 7pm room 3 November 12, 2024 1:11 pm Additional Source Comments INFORMATION SOURCE (unrecogn ized section and content) DATE CREATED AUTHOR 02/25/2019 [facility] DATE CREATED AUTHOR AUTHOR'S ORGANIZ ATION 11/12/2023 [facility] ([place]) DATE CREATED AUTHOR AUTHOR'S ORGANIZ ATION 08/15/2024 [facility] DATE CREATED AUTHOR AUTHOR'S ORGANIZ ATION 08/20/2024 [facility] DATE CREATED AUTHOR AUTHOR'S ORGANIZ ATION 09/29/2024 [facility] DATE CREATED AUTHOR AUTHOR'S ORGANIZ ATION 11/03/2024 [facility] DATE CREATED AUTHOR AUTHOR'S ORGANIZ ATION 12/12/2024 [facility] Care Team (unrecognized sect ion and content) Personnel Name: VACASIXTO APRN-HEMANT Address: Address: [address] [place] [id number]- Patient Care team informatio n (unrecognized section and content) 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 Operator Relationship Specialty Start Date End Date Renetta Reyes CNP [address] [place] [id number] PCP - General Family Medicine 01/18/24 Irene Woods MD [address] [place] [address] Physician Radiation Oncology 10/23/18 Joann Ledezma RN Specialty Value Stream Coach Oncology 11/17/18 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 Operator Relationship Specialty Start Date End Date Renetta Reyes CNP [address] [place] [id number] PCP - General Family Medicine 01/18/24 Irene Woods MD [address] [place] [address] Physician Radiation Oncology 10/23/18 Joann Ledezma RN Specialty Value Stream Coach Oncology 11/17/18 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 Operator Relationship Specialty Start Date End Date Renetta Reyes CNP [address] [place] [id number] PCP - General Family Medicine 01/18/24 Irene Woods MD [address] [place] [address] Physician Radiation Oncology 10/23/18 Joann Ledezma RN Specialty Value Stream Coach Oncology 11/17/18 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 Operator Relationship Specialty Start Date End Date Renetta Reyes CNP [address] [place] [id number] PCP - General Family Medicine 01/18/24 Irene Woods MD [address] [place] [address] Physician Radiation Oncology 10/23/18 Joann Ledezma RN Specialty Value Stream Coach Oncology 11/17/18 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 Operator Relationship Specialty Start Date End Date Renetta ReyesHEMANT [address] [facility] [place] [address] PCP - General Family Medicine 01/18/24 Irene Woods MD [address] [place] [address] Physician Radiation Oncology 10/23/18 Joann Ledezma RN Specialty Value Stream Coach Oncology 11/17/18 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 Operator Relationship Specialty Start Date End Date Ann Marie Ram MD [facility] [place] [address] PCP - General 10/11/18 Team Status: Active Member Role Status Dates No Primary Care Physician Family Provider Active No Primary Care Physician Primary Care Provider Active Team Status: Active Member Role Status Dates No Primary Care Physician Primary Care Provider Active Start: November 12, 2024 No Primary Care Physician Referring Provider Active Start: November 12, 2024 STEPH Kent Attending Provider Active Star t: November 12, 2024 Team Status: Inactive Member Role Status Dates No Primary Care Physician Primary Care Provider Active Start: November 12, 2024 End: November 12, 2024 Dr. Shon Mason MD Attending Provider Active S tart: November 12, 2024 End: November 12, 2024 Team Status: Inactive Member Role Status Dates No Primary Care Physician Primary Care Provider Active Start: November 12, 2024 End: November 12, 2024 No Primary Care Physician Referring Provider Active Start: November 12, 2024 End: November 12, 2024 STEPH Kent Attending Provider Active Star t: November 12, 2024 End: November 12, 2024 Source Comments (unrecognize d section and content) In the event this informatio n is protected by the Federal Confidentiality of Alcohol and Drug Abuse Patient Records regulations: The Federal rules restrict any use of the information to criminally investigate or prosecute any alcohol or drug abuse patient.[facility] HospitalIn the event this information is protected by the Federal Confidentiality of Alcohol and Drug Abuse Patient Records regulations: The Federal rules restrict any use of the information to criminally investigate or prosecute any alcohol or drug abuse patient.[facility] HospitalIn the event this information is protected by the Federal Confidentiality of Alcohol and Drug Abuse Patient Records regulations: The Federal rules restrict any use of the information to criminally investigate or prosecute any alcohol or drug abuse patient.[facility] HospitalIn the event this information is protected by the Federal Confidentiality of Alcohol and Drug Abuse Patient Records regulations: The Federal rules restrict any use of the information to criminally investigate or prosecute any alcohol or drug abuse patient.[facility] HospitalIn the event this information is protected by the Federal Confidentiality of Alcohol and Drug Abuse Patient Records regulations: The Federal rules restrict any use of the information to criminally investigate or prosecute any alcohol or drug abuse patient.[facility] Reason for Visit (unrecogniz ed section and content) Reason Comments New Patient Evaluation Reason Comments Initial Consult Specialty Diagnoses / Procedures Referred By Contac t Referred To Contact MR IMAGING Diagnoses Chronic bilateral thoracic back pain Malignant neoplasm of upper-outer quadrant of left breast in female, estrogen receptor positive (HCC) Procedures MRI THORACIC SPINE WO/W IVCON MRI SPINAL CANAL THORACIC W/O & W/CONTR ENOCL Geovanni Zamora, DO [address] [place] [address] [place] [address] Referral ID Status Reason Start Date Expiration Date V isits Requested Visits Authorized [id number] Closed Auto-Generate d Referral 02/15/2024 03/16/2024 1 1 Reason Comments Results Reason Onset Date Comments New Patient 09/27/2024 Goals (unrecognized section and content) Goals may be documented in a n alternate section FOR RECORDS PERTAINING TO PATIENTS WHO ARE OR HAVE BEEN ENROLLED IN A CHEMICAL DEPENDENCY/SUBSTANCEABUSE PROGRAM, SOME INFORMATION MAY BE OMITTED. This clinical summary was aggregated from multiple sources. Caution should be exercised in using it in the provision of clinical care. This summary normalizes information from multiple sources, and as a consequence, information in this document may materially change the coding, format and clinical context of patient data. In addition, data may be omitted in some cases. CLINICAL DECISIONS SHOULD BE BASED ON THE PRIMARY CLINICAL RECORDS. [facility]. provides no warranty or guarantee of the accuracy or completeness of information in this document.
== END | disposition home or self-care (01) ==
LOC: OPMRI 07:13
PROVIDERS: PCP Nurse Practitioner Adult Health; Referring Provider Student in an Organized Health Care Education/Training Program; Visit Provider Student in an Organized Health Care Education/Training Program
DX: G95.9 Disease of spinal cord, unspecified (principal); M54.12 Radiculopathy, cervical region
CPT/HCPCS: 72141

== ENCOUNTER → 2025-02-28 | Outpatient (CLI) | payer MEDICAID, SELFPAY ==
[2025-02-28 15:34] LABS: Magnesium 1.8 mg/dL (1.5-2.2)
[2025-02-28 15:54] LABS: Anion Gap 9 (5-15); BUN 13 mg/dL (4-19); BUN/Creat Ratio 18.3 RATIO (10-20); Calcium,Total 9.3 mg/dL (7.6-11.0); Carbon Dioxide 24.5 mmol/L (21.0-32.0); Chloride 104 mmol/L (98-108); Glucose 88 mg/dL (70-99); Potassium 4.5 mmol/L (3.3-5.1)
== END | disposition home or self-care (01) ==
LOC: MTLAB 11:39
PROVIDERS: Anesthesiology; PCP Nurse Practitioner Adult Health; Referring Provider Orthopaedic Surgery Orthopaedic Surgery of the Spine; Visit Provider Orthopaedic Surgery Orthopaedic Surgery of the Spine
DX: Z01.818 Encounter for other preprocedural examination (principal)
CPT/HCPCS: 36415; 80048; 83036; 83735; 86850; 86900; 86901; 87081

== ENCOUNTER 2025-03-11 10:58 | Day surgery (SDC) | payer MEDICAID, SELFPAY ==
--- NOTE | 2025-02-28 13:55 | PAT.ANE_ITS ---
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 When Was Last Pacemaker Check QUESTION #4 FULL TEXT: You/Your Family Experience fever (hyperthermia) with Anesthesia Last Oral Intake Last Oral intake: Last Oral Intake NPO since Meds taken in AM with sips of water? Meds patient instructed to take am of surgery PONV PONV - correction lieutenant: PONV - correction lieutenant Female Yes 02/25/25 10:14 HX of Motion Sickness No 02/25/25 10:14 HX of N/V After Surgery Yes 02/25/25 10:14 Non-Smoker No 02/25/25 10:14 Duration of Surgery greater Yes 02/25/25 10:14 than 60 minutes Number of Risk Factors 3 02/25/25 10:14 PONV Score Moderate Risk 02/25/25 10:14 Height & Weight Height & Weight: Anesthesia: Height & Weight Height 5 ft 9 in 12/20/24 13:28 Respiratory Assessment Respiratory Assessment - correction lieutenant: Respiratory Tract Infection Hx - correction lieutenant Hx Respiratory Tract Infection No 02/25/25 10:14 STOP Sleep Apnea STOP Sleep Apnea - correction lieutenant: STOP Sleep Apnea - correction lieutenant Hx Hypertension No 02/25/25 10:14 Hx Sleep Apnea No 02/25/25 10:14 CPAP BIPAP Do you snore loudly (louder No 02/25/25 10:14 than talking or can be heard Do you often feel tired/ No 02/25/25 10:14 fatigued/ sleepy during daytime? Has anyone observed you stop No 02/25/25 10:14 breathing during sleep? STOP Results Negative 02/25/25 10:14 QUESTION #5 FULL TEXT : Do you snore loudly (louder than talking or can be heard through closed doors)? 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 Specify any problems Hx of Preganancy in last 3 No 02/25/25 10:14 Months Nurse Filling Out Transfusion VCHRISTIN 02/25/25 10:14 & Questions: Date: 02/25/25 02/25/25 10:14 Time: 10:15 02/25/25 10:14 Patient unable to answer at this time (ie. confused, unrespo /Reproduction History /Reproductive History - correction lieutenant: /Reproductive Hx- correction lieutenant Hx Now No 02/25/25 10:14 Gestational Age (in weeks): EDC: Hx Hx Para Hx Section SAB No 02/25/25 10:14 PFSH Medical History Wears glasses Cancer Depression Anxiety Alcohol use Marijuana use Injury of head and neck Smoker Cardiology follow-up encounter Rheumatoid arthritis Breast cancer Home Medications ?Medication ?Instructions ?Recorded ?Last Taken ?Type cholecalciferol (vitamin D3) 50 50 mcg PO QDAY 5 Unknown History mcg (2,000 unit) capsule mecobalamin (vitamin B12) 1,000 1,000 mcg PO QDAY 10/22 08/14 Unknown History mcg chewable tablet buspirone 10 mg tablet 10 mg PO TID 02/25/25 Unknow n History fluoxetine 20 mg capsule 20 mg PO QHS 02/25/25 Unknow n History trazodone 100 mg tablet 150 mg PO QHS 02/25/25 Unkno wn History Allergy/AdvReac Type Severity Reaction Status Date / Time amoxicillin Allergy Other Verified 02/28/25 10:27 Surgical History History of tonsillectomy and adenoidectomy H/O breast surgery H/O: hysterectomy Social History Smoking Status: Current every day smoker tobacco type: cigarettes Audit: Pertinent Findings Pertinent Findings EKG Perinent findings: 02/20/2025. Sinus rhythm 70 bpm. Left anterior fascicular block. Anterior septal infarct age undetermined. Consult pertinent findings: Thi Xiao. Cardiology office note. Abnormal EKG. Q waves in anterior leads. Unchanged from previous EKG 2023. No concerning cardiac history. No further workup at this time. Preoperative cardiovascular exam. No further testing for upcoming procedure. Low cardiac risk. Recommendation Anesthesia Recommendation Anesthesia recommendation: OPTIMIZED for anesthesia
[2025-03-11] VITALS (10 sets, daily range): BP systolic 135–175; BP diastolic 78–90; PULSE 50–72; RESP 16; TEMP 36–36.3; O2SAT 96–100; BMI 20.8
--- NOTE | 2025-03-11 11:24 | PCM.PRE.AN2 ---
ASA Classification* ASA Classification ASA Classification: 2 Assessment & Plan Anesthesia* Anesthesia Assessment Anesthesia Assessment: Discussed sedation and/or anesthesia options, risks, benefits, and alternatives with patient/parents/legal guardian/POA. Questions invited. The patient/parents/legal guardian/POA seems to understand and agrees to proceed with anesthesia plan. Reviewed the physical assessment, medical history, allergy history and patient home medications list prior to surgery/procedure/anesthetic and documented any changes. Performed airway and anesthesia risk assessments. Anesthesia Type Anesthesia Type: General Anesthesia Focused Assessment* Airway Assessment Mouth opens: >3 cm Mallampati Score: II Labs Anesthesia Preop lab: CBC WBC, (4.4-11.0) 10.6 K/mm3 12/14/18, 08:22 RBC, (4.2-5.4) 3.88 M/mm3 L 12/14/18, 08:22 Hgb, (12.0-15.0) 11.6 g/dL L 12/14/18, 08:22 Hct, (37-47) 34.4 % L 12/14/18, 08:22 Plt Count, (150-450) 223 K/mm3 12/14/18, 08:22 CHEMISTRY Potassium, (3.3-5.1) 4.5 mmol/L 02/28/25, 11:43 Sodium, (133-145) 137 mmol/L 02/28/25, 11:43 Magnesium, (1.5-2.2) 1.8 mg/dL 02/28/25, 11:43 BUN, (4-19) 13 mg/dL 02/28/25, 11:43 Creatinine, (0.70-1.20) 0.73 mg/dL 02/28/25, 11:43 Glucose, (70-99) 88 mg/dL 02/28/25, 11:43 COAG Pre-Assessment Diagnosis/Proposed Procedure Planned Operative Procedure(s): Cervical Disc Arthroplasty C5-6 Anesthesia History 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 When Was Last Pacemaker Check QUESTION #4 FULL TEXT: You/Your Family Experience fever (hyperthermia) with Anesthesia Last Oral Intake Last Oral intake: Last Oral Intake NPO since Meds taken in AM with sips of water? 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 machine operator arc: PONV - welding machine operator arc Female Yes 02/25/25 10:14 HX of Motion Sickness No 02/25/25 10:14 HX of N/V After Surgery Yes 02/25/25 10:14 Non-Smoker No 02/25/25 10:14 Duration of Surgery greater Yes 02/25/25 10:14 than 60 minutes Number of Risk Factors 3 02/25/25 10:14 PONV Score Moderate Risk 02/25/25 10:14 Height & Weight Height & Weight: Anesthesia: Height & Weight Height 5 ft 9 in 12/20/24 13:28 Respiratory Assessment Respiratory Assessment - welding machine operator arc: Respiratory Tract Infection Hx - welding machine operator arc Hx Respiratory Tract Infection No 02/25/25 10:14 STOP Sleep Apnea STOP Sleep Apnea - welding machine operator arc: STOP Sleep Apnea - welding machine operator arc Hx Hypertension No 02/25/25 10:14 Hx Sleep Apnea No 02/25/25 10:14 CPAP BIPAP Do you snore loudly (louder No 02/25/25 10:14 than talking or can be heard Do you often feel tired/ No 02/25/25 10:14 fatigued/ sleepy during daytime? Has anyone observed you stop No 02/25/25 10:14 breathing during sleep? STOP Results Negative 02/25/25 10:14 QUESTION #5 FULL TEXT : Do you snore loudly (louder than talking or can be heard through closed doors)? 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 Specify any problems Hx of Preganancy in last 3 No 02/25/25 10:14 Months Nurse Filling Out Transfusion VCHRISTIN 02/25/25 10:14 & Questions: Date: 02/25/25 02/25/25 10:14 Time: 10:15 02/25/25 10:14 Patient unable to answer at this time (ie. 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 machine operator arc: /Reproductive Hx- welding machine operator arc Hx Now No 02/25/25 10:14 Gestational Age (in weeks): EDC: Hx Hx Para Hx Section SAB No 02/25/25 10:14 Active Medications Active Medications: Current Medications Generic Name Dose Route Start Last Admin Trade Name Freq PRN Reason Stop Dose Admin Acetaminophen 1,000 mg 03/11/25 13:15 Acetaminophen 500 Mg Tablet PO 03/11/25 13:16 PREOP ONE Dexamethasone Sodium Phosphate 8 mg 03/11/25 13:15 Dexamethasone 10 Mg/Ml Vial IV 03/11/25 13:16 INTRAOP ONE Dexamethasone Sodium Phosphate 4 mg 03/11/25 17:00 Dexamethasone 4 Mg/Ml Vial IV 03/11/25 17:01 POSTOP ONE Clindamycin Phosphate 900 mg in 50 mls @ 75 mls/hr 03/11/25 13:15 Cleocin IV 03/11/25 13:54 INTRAOP ONE Tranexamic Acid 1,000 mg/ 110 mls @ 440 mls/hr 03/11/25 13:15 Sodium Chloride IV 03/11/25 13:29 INTRAOP ONE Tranexamic Acid 1,000 mg/ 110 mls @ 440 mls/hr 03/11/25 14:15 Sodium Chloride IV 03/11/25 14:29 INTRAOP ONE Magnesium Sulfate 2 gm/ 104 mls @ 208 mls/hr 03/11/25 13:15 Dextrose IV 03/11/25 13:44 PREOP ONE Lactated Ringer's 1,000 mls @ 15 mls/hr 03/11/25 11:15 IV .Q48H PABLITO Insulin Human Lispro 1 - 6 unit 03/11/25 13:15 Insulin Lispro 100 Unit/Ml Insuln.Pen SC 03/11/25 19:30 Q4H PRN PRN BG>/= 180, SEE PROTOCOL Protocol PFSH Medical History Wears glasses Cancer Depression Anxiety Alcohol use Marijuana use Injury of head and neck Smoker Cardiology follow-up encounter Rheumatoid arthritis Breast cancer Home Medications ?Medication ?Instructions ?Recorded ?Last Taken ?Type cholecalciferol (vitamin D3) 50 50 mcg PO QDAY 11/12/24 03/10/25 History mcg (2,000 unit) capsule mecobalamin (vitamin B12) 1,000 1,000 mcg PO QDAY 11/12/24 03/10/25 History mcg chewable tablet buspirone 10 mg tablet 10 mg PO TID 02/25/25 03/10/25 History fluoxetine 20 mg capsule 20 mg PO QHS 02/25/25 03/10/25 History trazodone 100 mg tablet 150 mg PO QHS 02/25/25 03/10/25 History Allergy/AdvReac Type Severity Reaction Status Date / Time amoxicillin Allergy Other Verified 03/11/25 11:20 Surgical History History of tonsillectomy and adenoidectomy H/O breast surgery H/O: hysterectomy Social History Smoking Status: Current every day smoker tobacco type: cigarettes Review of Systems (Anesthesia) ROS Narrative System reviewed and no additional complaints, except as documented.
[2025-03-11] MEDS: Lactated Ringers 1,000 ML 15 ML IV (11:34)
[2025-03-11] MEDS: Magnesium 2 GM for ERAS IV (11:35)
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
[2025-03-11] MEDS: Lactated Ringers 1,000 ML 1000 ML IV (13:10)
[2025-03-11] MEDS: Lidocaine 1% (5 ml sdv) 5 ML Vial 8 ML IV (13:11)
--- NOTE | 2025-03-11 13:15 | RAD_ITS ---
PROCEDURE: CERV SPINE 2 OR 3 VIEWS 03/11/2025 REASON FOR EXAM: ANTERIOR CERVICAL FUSION C5-6 TECHNIQUE: Procedure Code: RADSPCL Modality: DX Procedure: CERV SPINE 2 OR 3 VIEWS 4 intraoperative views, 11.6 seconds of fluoroscopy, radiation dose of 0.70 mGy COMPARISON: MRI from 12/13/2024 FINDINGS: No intraoperative complications noted during anterior cervical fusion between C 5 and C6. RAD/Cerv Spine 2 or 3 Views IMPRESSION: No intraoperative complications noted during anterior cervical fusion between C 5 and C6 Reading Location: [id number]
[2025-03-11] MEDS: fentaNYL 100 MCG/2 ML Ampul IV (13:16)
[2025-03-11] MEDS: REMIFENTANIL HCL 1 MG VIAL 1.5 MG IV (14:00)
[2025-03-11] MEDS: TRANEXAMIC ACID 1,000 MG/10 ML ML 2000 MG IV (14:30)
[2025-03-11] MEDS: Ketorolac 30 MG/ML Syringe IV (14:32)
--- NOTE | 2025-03-11 15:22 | PCM.POST.ANE ---
Anesthesia: Postop Eval I Current Vital Signs Temperature: 97 F Pulse Rate: 72 Blood Pressure: 168/84 (RN to medicate for pain) Respiratory Rate: 16 Pulse Ox: 100 Oxygen Delivery Method: Room Air Assessment Airway patent: Yes Spontaneous unlabored respirations: Yes Mental status: Awake and Calm nausea: No Vomiting: No Anesthesia Complication: No Fluid Hydration Crystalloid volume administer (ml): 1,000 Total IV fluid infused: 1,000 Progress Note Anesthesia document: Postop Eval 1 completed: Yes
--- NOTE | 2025-03-11 15:35 | PCM.OPRPT ---
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 Cryptologic Technician Technical: Chantell Caba Tasks completed by first aid officer: Closing, Removing tissue, Hemostasis: Electrocautery and Retracting Type of Anesthesia: General RN Documented Start/Stop Times: Operation Date: 03/11/25 13:15 Case Time Into Pre-Op 03/11/25 11:05 Out of Pre-Op 03/11/25 13:00 Anesthesia Start 03/11/25 13:04 Into Room 03/11/25 13:04 Procedure Start 03/11/25 13:32 Procedure End 03/11/25 14:55 Anesthesia End 03/11/25 15:13 Out of Room 03/11/25 15:13 Into Recovery 03/11/25 15:14 Procedure Start Time: 13:32 Procedure Stop Time: 14:55 Select all DRAINS/GRAFTS/IMPLANTS that apply: Graft Graft details: Structural allograft corticocancellous strut and Implanted device Implanted device details: Medtronic Fair Play Elite plate instrumentation Estimated Blood Loss: 20 cc Specimen collected: No Description of surgery: Preoperative diagnosis: C5-6 disc right paracentral disc herniation with radiculopathy Postoperative diagnosis: Same Name of procedure: C5-6 anterior cervical discectomy and fusion with plate instrumentation - Anterior cervical fusion C5-6, CPT code 31741 - Anterior plate instrumentation C5-6, CPT code 99519/59 -C5-6 structural allograft bone with DBX, CPT code 02568 Attending surgeon: Geovanny Merritt M.D. Anesthesia: Gen. endotracheal Estimated blood loss: 20 mL Complications: None Instrumentation used: Medtronic Fair Play Elite plate, LASR corticocancellous block Indications: The patient is a pleasant 49-year-old lady who presented with neck pain, right upper extremity radiation with weakness. MRI showed C5-6 right paracentral disc herniation with stenosis. After prolonged period of nonsurgical treatment, the patient requested surgical treatment. All risks and benefits of the procedure were explained to the patient. The risks include but are not limited to infection, bleeding, injury to nerves and vessels, vertebral artery injury, spinal cord injury, paralysis, vocal cord paralysis, injury to esophagus, pseudoarthrosis, need for further procedures, adjacent segment degeneration. Procedure: The patient was identified in the preoperative suite using unique patient identifiers. Skin was marked consent was taken and all questions were answered. The patient was then brought back to the operative room and a timeout was performed. General endotracheal anesthesia was given. Intraoperative neuro monitoring leads were applied. The patient was carefully positioned supine on a regular OR table. A lateral view with a C-arm was done to identify the level and to define the incision. The anterior neck was then prepped and draped in the usual fashion. A final timeout was then performed. A transverse skin incision was taken to the left of midline. Subcutaneous tissue was then divided with Bovie. Platysma was identified and cut along the incision with scissors. The fascial interval between the sternocleidomastoid and the larynx was developed. Omohyoid was identified and retracted. The esophagus with the larynx was retracted medially to reach the prevertebral fascia. Marker x-ray was performed with Bishop pin and one of the bodies and levels were confirmed. Longus coli muscle was elevated on both sides at and above and below C5-6 disc. Self-retaining retractors were then placed. A long handle knife was then used to perform annulotomy at C5-6. Disc fragments were removed with the pituitary. Bishop pins were placed in C5 and C6 for disc distraction. Curettes and bur was utilized to remove cartilage from the endplates. Discectomy was performed laterally up to the uncovertebral joints. Posterior osteophytes were thinned down with the bur and adequate decompression in the central and foraminal areas were performed and PLL was resected to remove the extruded disc fragments from the canal. Once the disc space was prepared, trials of various sizes were utilized. Thorough irrigation was given. 7 mm LASR cortical cancellous allograft bone large footprint was then fashioned in such a way that concavities were burred out inferiorly and superiorly and half cc of DBX (demineralized bone matrix) was squeezed into the cancellous portion. The graft was then inserted into the C5-6 disc space. The graft was found to be in good apposition with good pullout strength. A 23 mm Medtronic Fair Play Elite plate was then fixed to C5-6 with 14 mm screws. A lateral x-ray was then taken to check the length of the screws. Both AP and lateral x-rays showed good positioning of plate and screws. The locking mechanism over the screw heads was then turned. Thorough irrigation was again given. Hemostasis was achieved. Closure was done with 3-0 Vicryl for the platysma and subcutaneous tissue layers and 4-0 Monocryl for the skin. Steri-Strips were applied and dressing was done with 4 x 4 gauze and Tegaderm. A cervical collar was then applied. The patient was then woken up from anesthesia extubated and taken to PACU in stable condition. From here, the patient will be transitioned to the floor. Intraoperative neuro monitoring was performed throughout this procedure. Motor evoked potentials were run periodically. All potentials remained at baseline throughout the procedure. I was present for the entire surgery and performed the surgery myself. Software Applications Architect Chantell Caba PA-C. My physician podiatrist assistant was a vital part of this case. They were important in appropriate retraction during the case, and protection of soft tissues during the procedure. Their intimate knowledge of the case and my steps aided in safe and expedient completion of the procedure as well as appropriate position of the patient during the surgery. They were also vital in assisting with closure under my direct supervision. Surgical Findings: See operative note Complications Complications: No
--- NOTE | 2025-03-11 15:52 | POSTOPAN2_ITS ---
Anesthesia Postop Eval I Sum Postop Eval Completion status Anesthesia document: Postop Eval 1 completed: Yes Anesthesia Postop Eval I Summary Anesthesia Postop Eval I Summary: Anesthesia Postop Eval I: Assessment Summary Airway patent Yes 03/11/25 15:23 PRINTING BINDERY ASSISTANT.SKOBY Spontaneous unlabored Yes 03/11/25 15:23 PRINTING BINDERY ASSISTANT.SKOBY respirations Mental status Awake,Calm 03/11/25 15:23 PRINTING BINDERY ASSISTANT.SKOBY nausea No 03/11/25 15:23 PRINTING BINDERY ASSISTANT.SKOBY Vomiting No 03/11/25 15:23 PRINTING BINDERY ASSISTANT.SKOBY Anesthesia Postop Eval I: Fluid Summary Crystalloid volume administer 1,000 03/11/25 15:23 PRINTING BINDERY ASSISTANT.SKOBY (ml) Colloids volume administered ( ml) Blood Product volume administered (ml) Total IV fluid infused 1,000 03/11/25 15:23 PRINTING BINDERY ASSISTANT.SKOBY Anesthesia Postop Eval I: Summary Notes Anesthesia Complication No 03/11/25 15:23 PRINTING BINDERY ASSISTANT.SKOBSrikanth Anesthesia Complication Comment: Post-operative progress note Anesthesia: Postop Eval II Evaluation Mental status: Awake Pain Level: 2 nausea: No Vomiting: No
--- NOTE | 2025-03-11 15:52 | PCM.POSTANE2 ---
Anesthesia Postop Eval I Sum Postop Eval Completion status Anesthesia document: Postop Eval 1 completed: Yes Anesthesia Postop Eval I Summary Anesthesia Postop Eval I Summary: Anesthesia Postop Eval I: Assessment Summary Airway patent Yes 03/11/25 15:23 APPLICATION SERVICES [email or web address] Spontaneous unlabored Yes 03/11/25 15:23 APPLICATION SERVICES [email or web address] respirations Mental status Awake,Calm 03/11/25 15:23 APPLICATION SERVICES [email or web address] nausea No 03/11/25 15:23 APPLICATION SERVICES [email or web address] Vomiting No 03/11/25 15:23 APPLICATION SERVICES [email or web address] Anesthesia Postop Eval I: Fluid Summary Crystalloid volume administer 1,000 03/11/25 15:23 APPLICATION SERVICES [email or web address] (ml) Colloids volume administered ( ml) Blood Product volume administered (ml) Total IV fluid infused 1,000 03/11/25 15:23 APPLICATION SERVICES [email or web address] Anesthesia Postop Eval I: Summary Notes Anesthesia Complication No 03/11/25 15:23 APPLICATION SERVICES [email or web address] Anesthesia Complication Comment: Post-operative progress note Anesthesia: Postop Eval II Evaluation Mental status: Awake Pain Level: 2 nausea: No Vomiting: No
== END 2025-03-11 17:07 | disposition home or self-care (01) ==
LOC: SDC 11:00 → AC 11:05
PROVIDERS: PCP Nurse Practitioner Adult Health; Referring Provider Orthopaedic Surgery Orthopaedic Surgery of the Spine; Visit Provider Orthopaedic Surgery Orthopaedic Surgery of the Spine
PROC: (CPT 22551; principal; 2025-03-11 12:45)
DX: M50.022 Cervical disc disorder at C5-C6 level with myelopathy (principal); M06.9 Rheumatoid arthritis, unspecified; M50.122 Cervical disc disorder at C5-C6 level with radiculopathy; F17.210 Nicotine dependence, cigarettes, uncomplicated; Z79.899 Other long term (current) drug therapy
CPT/HCPCS: 22551; 22845; 20931; 72040; 76000; 82962; C1713; J2405